=== PATIENT | female | born 1940 | race Caucasian/White ===

== ENCOUNTER → 2018-03-03 10:10 | Outpatient (CLI) | payer MEDICARE, OTHER, SELFPAY ==
--- NOTE | 2018-03-03 | DI.MG.S_ITS ---
BILATERAL DIGITAL SCREENING MAMMOGRAM 3D/2D WITH CAD: 03/03/2018 CLINICAL: Routine screening. Family history of breast cancer. Comparison is made to exams dated: 09/02/2017 mammogram, 03/02/2017 mammogram, and 02/16/2017 mammogram - [facility]. The tissue of both breasts is predominantly fatty. Current study was also evaluated with a Computer Aided Detection (CAD) system. No significant masses, calcifications, or other findings are seen in either breast. There has been no significant interval change. IMPRESSION: NEGATIVE There is no mammographic evidence of malignancy. A 1 year screening mammogram is recommended. This exam was interpreted at Station ID: [id number]. NOTE: For mammograms, a report in lay terms will be sent to the patient. Approximately 15% of breast malignancies will not be visualized mammographically. In the management of a palpable breast mass, a negative mammogram must not discourage biopsy of a clinically suspicious lesion. Electronically Signed By: Ramana gaona/prince:03/03/2018 11:45:35 letter sent: Normal Exam ACR BI-RADS Category 1: Negative [id number]
== END ==
PROVIDERS: Family Provider Family Medicine; PCP Family Medicine; Visit Provider Family Medicine
DX: Z12.31 Encounter for screening mammogram for malignant neoplasm of breast (principal); Z80.3 Family history of malignant neoplasm of breast
CPT/HCPCS: 77063; 77067

== ENCOUNTER → 2018-04-13 10:50 | Outpatient (CLI) | payer MEDICARE, OTHER, SELFPAY ==
[2018-04-13 11:47] LABS: Add Manual Diff / Slide Review NO; Basophils Percent Auto 0.9 % (0-2); Eosinophils Percent Auto 3.8 % (2-4); Hematocrit 43.3 % (36-46); Hemoglobin 14.9 g/dL (12.0-16.0); Lymphocytes Percent Auto 47.9 % (25-40); Mean Corpuscular HGB Conc 34.4 % (30-36); Mean Corpuscular Hemoglobin 31.5 PG (26-34); Mean Corpuscular Volume 91.4 fL (80-100); Monocytes Percent Auto 7.2 % (3-14); Neutrophils Absolute Auto 2800 /uL (3000-5900); Neutrophils Percent Auto 40.2 % (50-75); Platelet Count 190 X10^3/uL (150-400); Red Blood Cell Count 4.73 X10^6/uL (4.0-5.2); Red Cell Distribution Width 12.9 % (11.6-14.8); White Blood Cell Count 6.9 X10^3/uL (4.5-11.0)
[2018-04-13 12:45] LABS: Alanine Aminotransferase 54 IU/L (9-52); Albumin 4.2 g/dL (3.5-5.0); Albumin Globulin Ratio 1.4 (1.0-2.8); Alkaline Phosphatase 82 U/L (38-126); Aspartate Aminotransferase 52 IU/L (14-36); BUN Creatinine Ratio 21.7 (6-22); Bilirubin Total 0.6 mg/dL (0.2-1.3); Blood Urea Nitrogen 13 mg/dL (7-17); Calcium 9.8 mg/dL (8.4-10.2); Carbon Dioxide 28 mmol/L (22-32); Chloride 103 mmol/L (98-107); Estimated Glomerular Filt Rate > 60.0 mL/min (>60); Glucose 101 mg/dL (80-110); HEMOLYSIS < 15 (0-50); Potassium 4.2 mmol/L (3.4-5.1); Sodium 139 mmol/L (137-145); Total Protein 7.2 g/dL (6.3-8.2)
[2018-04-13 13:02] LABS: Free T4, Direct Thyroxine 1.28 ng/dL (0.78-2.19)
[2018-04-13 13:17] LABS: Thyroid Stimulating Hormone 4.59 uIU/mL (0.47-4.68)
[2018-04-13 15:19] LABS: Vitamin D 25 Hydroxy (D3) 24.1 ng/mL (30.0-100.0)
== END ==
PROVIDERS: Visit Provider Family Medicine
DX: E83.52 Hypercalcemia (principal); E03.9 Hypothyroidism, unspecified; M81.0 Age-related osteoporosis without current pathological fracture; E21.3 Hyperparathyroidism, unspecified
CPT/HCPCS: 36415; 80053; 82306; 84439; 84443; 85025

== ENCOUNTER → 2018-05-31 14:13 | Outpatient (CLI) | payer MEDICARE, OTHER, SELFPAY ==
--- NOTE | 2018-05-31 14:15 | DI.RAD.S_ITS ---
PROCEDURE: FL BARIUM SWALLOW W SPEECH INDICATIONS: swallowing issues TECHNIQUE: Examination was conducted in conjunction with speech pathology per standard protocol. In the lateral projection, filming was performed of the patient swallowing. AP projection filming may also be performed with patient swallowing. COMPARISON: [facility], , MM SCREENING MAMMO BI, 03/03/2018, 10:32. FINDINGS: Function: The oral preparatory phase appears normal, with proper containment. The subsequent oral propulsive phase, pharyngeal phase, and esophageal phase of swallowing also appear normal with all proffered substances. Trace laryngotracheal penetration with pur?e consistency. No aspiration. No pathologic vallecular pooling. Morphology: No cricopharyngeal bar is identified. No cervical esophageal webs. No Zenker's diverticulum. No strictures. IMPRESSION: Trace laryngeal penetration. Please see separate speech pathologist's report. Dictated by: Claudy Claire M.D. on 05/31/2018 at 15:52 Approved by: Claudy Claire M.D. on 05/31/2018 at 15:53
--- NOTE | 2018-06-01 17:13 | ST.SWALLOW ---
Care Team Visit Care Team Role Provider Type Michelle Ghotra DO Attending Provider Physician Primary Care Provider Specialty: Family Practice Address: [address] [place] [address], [id number] Email: [email or web address] Modified Barium Swallow Study METER TECHNICIAN Modified Barium Swallow Study Start: 06/01/18 16:35 Freq: Status: Active Protocol: Document 06/01/18 16:37 RANCHO (Rec: 06/01/18 17:13 RANCHO [id number]) Modified Barium Swallow Study Total Time Visit Start Time 14:30 Visit Stop Time 15:00 Total Visit Minutes [address] Michelle Glass Reason for Referral Dysphagia Setting Setting Outpatient Care Patient Information Identification Type Name Other Patient History This 78-yr-old female was seen by this METER TECHNICIAN last month during community swallow screenings offered at the [facility] outpatient rehab clinic, and MBS was recommended to evaluate her swallow function and safety. 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 She also reported having had radioactive iodine treatment for a thyroid growth in 1983, and felt that this was the onset of her swallow difficulties. She has had dysphagia therapy at as recently as 2006. At that time , she was recommended to drink liquids with a straw, which she continues and states it is easier and results in less coughing than drinking from a cup. The pt is skilled in consuming small bites/sips at a slow rate but finds that liquids go to the sides of [ her] mouth and result in choking especially when she is tired. Consumption of dry, crumbly foods also often results in coughing, and coughing also increases generally when she is distracted while eating or drinking. Subjective Observations The pt arrived on time and ambulated herself via motorized wheelchair. She remained in her own wheelchair throughout the study. She was able to provide case history and follow all instructions. Patient Positioning Position View Lateral Imaging Lateral View Textures Administered Trials Presented Thin Liquid via Spoon Thin Liquid via Cup Thin Liquid via Straw [place] [employer] Liquid via Spoon [employer] Liquid via Cup [employer] Liquid via Straw [place] Liquid via Spoon Dysphagia Blenderized Textures Dysphagia Advanced Textures Regular Textures Oral Phase Source: MBSIMP (TM) (C) Bolus Specific Scoring Grid Lip Closure No Impairment (WNL) Tongue Control During Bolus Hold Minimal Impairment Bolus Prep/Mastication Mild Impairment Bolus Transport/Lingual Motion Mild Impairment A/P Lingual Propulsion Delay No Oral Residue Mild Impairment Residue Clearing WFL Nasal Regurgitation No: Gag reflex elicited x2 w/ pudding and dysphagia advanced texture Additional Oral Phase Observations Mild, rapid lingual rocking observed intermittently upon initiation of a/p propulsion with liquids, accompanied by escape of bolus to anterior floor of mouth and followed by complete and timely posterior propulsion. This may be natural dipping swallow technique, which is not considered abnormal bolus control (Dawna, 1989). Greater effort of solid bolus control observed with repetitive escape to floor of mouth anteriorly and into lateral sulci. No residue at floor of mouth or sulci observed post- swallow. Pharyngeal Phase Source: MBSIMP (TM) (C) Bolus Specific Scoring Grid Delayed Initiation of Pharyngeal Swallow Yes: With solids only Number of Seconds Delayed (seconds) Up to 3 sec Soft Palate Elevation No Impairment (WNL) Tongue Base Strength/Range of Motion Mild Impairment Residue Along the Tongue Base Yes: Trace to mild, clears w/ subsequent swallow Clearance of Residue Along Tongue Base WFL Laryngeal Elevation Minimal Impairment Anterior Hyoid Movement WFL Vallecular Residue Yes: Minimal, clears with subsequent swallow Clearance of Vallecular Residue No Impairment (WNL) Laryngeal Vestibular Closure Minimal Impairment Pharyngeal Stripping Wave Minimal Impairment Posterior Pharyngeal Wall Residue No Upper Esophageal Sphincter Opening No Impairment (WNL) Residue in the Pyriform Sinuses No Esophageal Clearance Upright Position No Impairment (WNL) Pharyngoesophageal Backflow Observed No Additional Pharyngeal Phase Observations Trace flash penetration ([place] Scale 2) x1 during swallow of large consecutive sips of thin liquid via straw following swallow of solids. No aspiration was observed. The pt exhibited gag reflex and piecemeal swallow of trials of puddings and diced fruit, stating that the bolus size presented to her was larger than what she usually consumes. She consumed a small bite of cookie without gag reflex and swallowed in piecemeal sequence. A/P View Clinical Impressions Dysphagia Type Mild oropharyngeal dysphagia Findings secondary to mildly reduced strength, coordination, and/or ROM of swallow musculature, particularly lingual and laryngeal muscles. Impairments impact bolus formation and control in oral prep and swallow phases and airway protection in pharyngeal swallow phase. Rehabilitation Potential Excellent Patient Appropriate for Therapy Yes Recommendations Diet Liquids Order Thin Diet Order Regular Medication Recommendation As Tolerated Aspiration Precautions Recommended Precautions Upright at 90 Degrees Small Bites/Sips Treatment Plan Therapy Recommendations Outpatient Speech Therapy Oral Motor Exercises Lingual Exercises Base of Tongue Exercises Compensatory Strategies Recommendations Sitting Upright (90 deg) Small Bites and Sips Additional Compensatory Strategies Minimize distractions while Recommended eating/drinking. Short Term Goals Pt will complete exercises to increase strength, coordination, and ROM of swallow musculature to reduce effort and improve safety with oral intake. The pt will follow safe swallow strategies to improve swallow safety and reduce risk of aspiration. Resident Manager Goals The pt will tolerate regular diet and thin liquids without s/sx of aspiration. The pt will report increased confidence with oral intake, as measured by self-evaluation questionnaire (e.g., EAT-10).
--- NOTE | 2018-06-01 17:22 | ST.SWALLOW ---
Care Team Visit Care Team Role Provider Type Michelle Ghotra DO Attending Provider Physician Primary Care Provider Specialty: Family Practice Address: [address] [place] [address], [id number] Email: [email or web address] Modified Barium Swallow Study RN CARDIOLOGY Modified Barium Swallow Study Start: 06/01/18 16:35 Freq: Status: Active Protocol: Document 05/31/18 16:37 RANCHO (Rec: 06/01/18 17:13 RANCHO [id number]) Modified Barium Swallow Study Total Time Visit Start Time 14:30 Visit Stop Time 15:00 Total Visit Minutes [address] Michelle Glass Reason for Referral Dysphagia Setting Setting Outpatient Care Patient Information Identification Type Name Other Patient History This 78-yr-old female was seen by this RN CARDIOLOGY last month during community swallow screenings offered at the [facility] outpatient rehab clinic, and MBS was recommended to evaluate her swallow function and safety. 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 She also reported having had radioactive iodine treatment for a thyroid growth in 1983, and felt that this was the onset of her swallow difficulties. She has had dysphagia therapy at as recently as 2006. At that time , she was recommended to drink liquids with a straw, which she continues and states it is easier and results in less coughing than drinking from a cup. The pt is skilled in consuming small bites/sips at a slow rate but finds that liquids go to the sides of [ her] mouth and result in choking especially when she is tired. Consumption of dry, crumbly foods also often results in coughing, and coughing also increases generally when she is distracted while eating or drinking. Subjective Observations The pt arrived on time and ambulated herself via motorized wheelchair. She remained in her own wheelchair throughout the study. She was able to provide case history and follow all instructions. Patient Positioning Position View Lateral Imaging Lateral View Textures Administered Trials Presented Thin Liquid via Spoon Thin Liquid via Cup Thin Liquid via Straw [place] Liquid via Spoon [place] Liquid via Cup [place] Liquid via Straw [place] Liquid via Spoon Dysphagia Blenderized Textures Dysphagia Advanced Textures Regular Textures Oral Phase Source: MBSIMP (TM) (C) Bolus Specific Scoring Grid Lip Closure No Impairment (WNL) Tongue Control During Bolus Hold Minimal Impairment Bolus Prep/Mastication Mild Impairment Bolus Transport/Lingual Motion Mild Impairment A/P Lingual Propulsion Delay No Oral Residue Mild Impairment Residue Clearing WFL Nasal Regurgitation No: Gag reflex elicited x2 w/ pudding and dysphagia advanced texture Additional Oral Phase Observations Mild, rapid lingual rocking observed intermittently upon initiation of a/p propulsion with liquids, accompanied by escape of bolus to anterior floor of mouth and followed by complete and timely posterior propulsion. This may be natural dipping swallow technique, which is not considered abnormal bolus control (Dawna, 1989). Greater effort of solid bolus control observed with repetitive escape to floor of mouth anteriorly and into lateral sulci. No residue at floor of mouth or sulci observed post- swallow. Pharyngeal Phase Source: MBSIMP (TM) (C) Bolus Specific Scoring Grid Delayed Initiation of Pharyngeal Swallow Yes: With solids only Number of Seconds Delayed (seconds) Up to 3 sec Soft Palate Elevation No Impairment (WNL) Tongue Base Strength/Range of Motion Mild Impairment Residue Along the Tongue Base Yes: Trace to mild, clears w/ subsequent swallow Clearance of Residue Along Tongue Base WFL Laryngeal Elevation Minimal Impairment Anterior Hyoid Movement WFL Vallecular Residue Yes: Minimal, clears with subsequent swallow Clearance of Vallecular Residue No Impairment (WNL) Laryngeal Vestibular Closure Minimal Impairment Pharyngeal Stripping Wave Minimal Impairment Posterior Pharyngeal Wall Residue No Upper Esophageal Sphincter Opening No Impairment (WNL) Residue in the Pyriform Sinuses No Esophageal Clearance Upright Position No Impairment (WNL) Pharyngoesophageal Backflow Observed No Additional Pharyngeal Phase Observations Trace flash penetration ([place] Scale 2) x1 observed during swallow of large consecutive sips of thin liquid via straw following swallow of solids. No aspiration was observed. The pt exhibited gag reflex and piecemeal swallow of trials of puddings and diced fruit, stating that the bolus size presented to her was larger than what she usually consumes. She consumed a small bite of cookie without gag reflex and swallowed in piecemeal sequence. A/P View Clinical Impressions Dysphagia Type Mild oropharyngeal dysphagia Findings secondary to mildly reduced strength, coordination, and/or ROM of swallow musculature, particularly lingual and laryngeal muscles. Impairments impact bolus formation and control in oral prep and swallow phases and airway protection in pharyngeal swallow phase. Rehabilitation Potential Excellent Patient Appropriate for Therapy Yes Recommendations Diet Liquids Order Thin Diet Order Regular Medication Recommendation As Tolerated Aspiration Precautions Recommended Precautions Upright at 90 Degrees Small Bites/Sips Treatment Plan Therapy Recommendations Outpatient Speech Therapy Oral Motor Exercises Lingual Exercises Base of Tongue Exercises Compensatory Strategies Recommendations Sitting Upright (90 deg) Small Bites and Sips Additional Compensatory Strategies Minimize distractions while Recommended eating/drinking. Short Term Goals Pt will complete exercises to increase strength, coordination, and ROM of swallow musculature to reduce effort and improve safety with oral intake. The pt will follow safe swallow strategies to improve swallow safety and reduce risk of aspiration. Watch Repairer Apprentice Goals The pt will tolerate regular diet and thin liquids without s/sx of aspiration. The pt will report increased confidence with oral intake, as measured by self-evaluation questionnaire (e.g., EAT-10).
== END ==
PROVIDERS: PCP Family Medicine; Visit Provider Family Medicine
DX: R13.10 Dysphagia, unspecified (principal)
CPT/HCPCS: 74230; 92611

== ENCOUNTER → 2018-06-10 08:43 | Outpatient (CLI) | payer MEDICARE, OTHER, SELFPAY ==
[2018-06-10 10:17] LABS: Vitamin D 25 Hydroxy (D3) 50.5 ng/mL (30.0-100.0)
[2018-06-10 10:32] LABS: TSH w/ Reflex to FT4 1.47 uIU/mL (0.47-4.68)
[2018-06-14 15:06] LABS: Parathyroid Hormone Int 114 pg/mL (14-64)
== END ==
PROVIDERS: PCP Family Medicine; Visit Provider Family Medicine
DX: Z12.11 Encounter for screening for malignant neoplasm of colon (principal); Z12.12 Encounter for screening for malignant neoplasm of rectum; E03.9 Hypothyroidism, unspecified; E21.3 Hyperparathyroidism, unspecified; M81.0 Age-related osteoporosis without current pathological fracture; I10 Essential (primary) hypertension
CPT/HCPCS: 36415; 82306; 83970; 84443

== ENCOUNTER → 2018-06-16 09:37 | Outpatient (CLI) | payer MEDICARE, OTHER, SELFPAY ==
[2018-06-18 15:51] LABS: Fecal Immunochemical Test NOT DETECTED
== END ==
PROVIDERS: PCP Family Medicine; Visit Provider Family Medicine
DX: Z12.11 Encounter for screening for malignant neoplasm of colon (principal); Z12.12 Encounter for screening for malignant neoplasm of rectum
CPT/HCPCS: 82274

== ENCOUNTER 2018-07-06 08:30 | Outpatient (RCR) | payer MEDICARE, OTHER, SELFPAY | END 2018-09-21 15:00 | LOC: SP 08:30 | PROVIDERS: PCP Family Medicine; Visit Provider Family Medicine | DX: R13.10 Dysphagia, unspecified (principal) | CPT/HCPCS: 92526; 92610 ==

== ENCOUNTER → 2018-12-07 12:59 | Outpatient (CLI) | payer MEDICARE, OTHER, SELFPAY | PROVIDERS: PCP Family Medicine; Visit Provider Family Medicine | DX: M81.0 Age-related osteoporosis without current pathological fracture (principal); Z78.0 Asymptomatic menopausal state; E07.9 Disorder of thyroid, unspecified; E83.52 Hypercalcemia; Z82.62 Family history of osteoporosis; Z87.891 Personal history of nicotine dependence | CPT/HCPCS: 77080 ==

== ENCOUNTER → 2019-03-07 09:35 | Outpatient (CLI) | payer MEDICARE, OTHER, SELFPAY ==
--- NOTE | 2019-03-07 | DI.MG.S_ITS ---
BILATERAL DIGITAL SCREENING MAMMOGRAM 3D/2D WITH CAD: 03/07/2019 CLINICAL: Routine screening. Family history of breast cancer. Comparison is made to exams dated: 03/03/2018 mammogram, 09/02/2017 mammogram, 03/02/2017 mammogram, 02/16/2017 mammogram, 11/01/2015 mammogram, and 03/02/2017 [facility]. There are scattered fibroglandular elements in both breasts. Current study was also evaluated with a Computer Aided Detection (CAD) system. There are mole markers on both breasts. No significant masses, calcifications, or other findings are seen in either breast. There has been no significant interval change. IMPRESSION: NEGATIVE There is no mammographic evidence of malignancy. A 1 year screening mammogram is recommended. This exam was interpreted at Station ID: [id number]. NOTE: For mammograms, a report in lay terms will be sent to the patient. Approximately 15% of breast malignancies will not be visualized mammographically. In the management of a palpable breast mass, a negative mammogram must not discourage biopsy of a clinically suspicious lesion. Electronically Signed By: Everett quintanilla/prince:03/07/2019 19:43:14 letter sent: Normal Exam ACR BI-RADS Category 1: Negative [id number]
== END ==
PROVIDERS: PCP Family Medicine; Visit Provider Family Medicine
DX: Z12.31 Encounter for screening mammogram for malignant neoplasm of breast (principal); Z80.3 Family history of malignant neoplasm of breast
CPT/HCPCS: 77063; 77067

== ENCOUNTER → 2019-05-01 10:20 | Outpatient (CLI) | payer MEDICARE, OTHER, SELFPAY ==
--- NOTE | 2019-05-01 10:22 | DI.RAD.S_ITS ---
PROCEDURE: XR FOOT LT MIN 3V INDICATIONS: left 1st toe pain, dropped frozen chicken on foot TECHNIQUE: 3 views of the foot were acquired. COMPARISON: [facility], , FOOT 3V RIGHT, 08/16/2015, 9:38. FINDINGS: Bones: There is diffuse osteopenia. Osteoarthritic changes are noted throughout left foot joints more prominent involving first TMT joint and first MTP joint. No gross acute fractures or dislocations. Tiny plantar calcaneal enthesophyte is seen. No suspicious bony lesions. Soft tissues: No tibiotalar joint effusion. Achilles tendon appears normal. IMPRESSION: Osteoarthritic changes throughout left foot. No gross acute left foot fracture or dislocation. Osteopenia. Dictated by: Andrew Garcia M.D. on 05/01/2019 at 10:35 Approved by: Andrew Garcia M.D. on 05/01/2019 at 10:36
== END ==
PROVIDERS: PCP Family Medicine; Visit Provider Physician Assistant
DX: M85.80 Other specified disorders of bone density and structure, unspecified site (principal); M79.675 Pain in left toe(s)
CPT/HCPCS: 73630

== ENCOUNTER 2019-05-12 15:15 | Outpatient (RCR) | payer MEDICARE, OTHER, SELFPAY ==
--- NOTE | 2019-02-14 16:47 | PT.OIE ---
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) Past Medical History (Last Updated 06/16/18 @ 10:34 by Michelle Ghotra DO) Acquired hypothyroidism (Chronic) Abnormal liver function tests (07/04/14) Hypercalcemia (07/04/14) Hyperlipidemia (07/04/14) Hyperparathyroidism (10/03/14) Osteoporosis (04/05/15) Parathyroid adenoma (05/07/17) Hyperparathyroidism, primary (Acute) Abnormal LFTs (Chronic) Atrial fibrillation (Chronic ~2012) Cataract (Chronic ~2013) GERD (gastroesophageal reflux disease) (Chronic ~1978) Hypercalcemia (Chronic ~2013) Hyperthyroidism (Chronic ~1981) Hypothyroidism (Chronic) Osteoarthritis (Chronic ~1974) Osteoporosis (Chronic ~2008) Paraplegia (Chronic) Polio (Chronic ~1951) Post-polio syndrome (Chronic) Scoliosis (Chronic ~1952) Shoulder pain (Chronic ~2013) Sleep apnea (Chronic ~2000) Urinary incontinence (Chronic ~2008) Vision abnormalities (Chronic) Chickenpox (Resolved ~1947) Foot fracture, right (Resolved ~2014) Fractures (Resolved) Measles (Resolved) Mumps (Resolved ~1970) Past Surgical History (Last Updated 04/20/18 @ 09:42 by Sammi Cuellar) History of lumbar sympathectomy (Resolved) Parathyroid adenoma (Resolved ~2016) Anesthesia (Inactive) History of tonsillectomy (~1951) Status post hammer toe correction (~1981) Provider Visit Care Team Role Provider Type Michelle Ghotra DO Attending Provider Physician Primary Care Provider Specialty: Family Practice Address: [address] [place] [address], [facility] Email: [email or web address] Physical Therapy Initial Evaluation PT-OP-A Visit Information Start: 02/14/19 15:09 Freq: Status: Active Protocol: Document 02/14/19 09:45 (Rec: 02/14/19 15:32 [email or web address]) Out-Patient Physical Therapy Visit Information Visit Information Visit Type Initial Evaluation Visit Start Time 09:45 Visit Stop Time 10:30 Total Visit Minutes 45 Visit Number 1 Number of REFRIGERATION ENGINEERING TEACHER Visits 0 Evaluation Information Evaluation Date 02/14/19 Precautions Precautions Post polio syndrome *minimal to moderate intensity for strengthening *avoid creating excessive soreness and fatigue high fall risks PT-OP-B Current Condition Start: 02/14/19 15:09 Freq: Status: Active Protocol: Document 02/14/19 09:45 (Rec: 02/14/19 15:32 HH [email or web address]) Current Condition History of Current Condition Onset Date 5 years ago Current Complaints Post polio syndrome, increased LE weakness, decreased activity tolerance History of Current Condition Pt is a 78yo female with post polio syndrome since 5 years ago. She presents to clinic with primary c/o increased LE weakness and decreased L hip mobility recently limited by pain. She also c/o she has difficult time to stretch her hip with theraband/ belt at home especially hip abd and extension in bed which causes her to fall easily. Pt also had an accident 4 years ago that a shelf fell on her L side which dislocated her L hip and broke her lumbar spine . Pt is power w/c bound since then but she does have a L hinged AFO and R hip orthotics to improve gait stability with crutches. she states she is able to stand around 15-20 mins with/without crutches, transfers between surface and amb with crutches for 0.5-1 hour 5 times a week independently at home. She has never amb out of her room due to high fall risks. Pt has fallen multiple times since 4 years ago but did not ahve any significant injuries. Prior Treatments and Tests Received outpatient PT at for UE strengthening in 2018 Treatment Goals Patient/Caregiver Goals 1. To learn and perform self stretches for B hip safely 2. To strengthen her back to tolerate longer standing time and amb distance 3. to be able to amb everyday with crutches for an hour Prior Functional Status Baseline Function- ADL's Modified Independent Baseline Function- Mobility Modified Independent Baseline Function- Gait with crutches (able to walk everyday) Baseline Function- Other Able to stand >1 hour able to amb > 1 hour with crutches able to amb daily with crutches Current Functional Impairments (Reported) Functional Limitations- ADL's mod Independent Functional Limitations- Mobility/Gait unable to amb more than 1 hour with crutches due to fatigue and poor balance Functional Limitations- Other Unable to perform self stretch to increase hip mobility PT-OP-C Subjective Start: 02/14/19 15:09 Freq: Status: Active Protocol: Document 02/14/19 09:45 HH (Rec: 02/14/19 15:32 [email or web address]) OP-PT Subjective Patient Comments Patient Comments I have a hard time stretching my hip. OP-PT Pain Assessment Location Bilateral Hip Intensity 5 Scale Used Numeric (1 - 10) Description Aching Chronic Dull Pain Aggravating Factors Activity Exercise Standing Sitting Walking Pain Alleviating Factors Inactivity Lying Supine Lower Back Intensity 4 Scale Used Numeric (1 - 10) Description Aching Chronic Dull Pain Aggravating Factors Activity Standing Walking Bending Lifting Pain Alleviating Factors Inactivity Lying Supine Sitting PT-OP-G Mobility & Gait Start: 02/14/19 15:09 Freq: Status: Active Protocol: Document 02/14/19 09:45 HH (Rec: 02/14/19 16:44 [email or web address]) OP Mobility Evaluation Transfers Sit to Stand Primarily WB on L LE Bed to Chair Transfers requires UE support to push off PT-OP-H Neuro Start: 02/14/19 15:09 Freq: Status: Active Protocol: Document 02/14/19 09:45 HH (Rec: 02/14/19 16:44 [email or web address]) Muscle Tone Tone Assessment Right Lower Extremity Flexor Tone Description Severe Hypotonicity Extensor Tone Description Severe Hypotonicity PT-OP-J Posture/Palpation/Skin Start: 02/14/19 15:09 Freq: Status: Active Protocol: Document 02/14/19 09:45 HH (Rec: 02/14/19 16:44 [email or web address]) Posture Evaluation Position Standing Evaluation View Anterior Weight Distribution Weight Shifted Left Decreased Wt.Bear on (R) Knee Posture (R) Genu Recurvatum Ankle/Foot Posture (R) Plantarflexed PT-OP-K Range of Motion Start: 02/14/19 15:09 Freq: Status: Active Protocol: Document 02/14/19 09:45 HH (Rec: 02/14/19 16:44 [email or web address]) Hip Goniometric Range of Motion Hip Measured in Degrees Left Passive Hip ROM WFL No Testing Position Supine Flexion w/Knee Flexed 100 Extension 0 Abduction 10 Knee Goniometric Range of Motion Knee Measured in Degrees Left Knee ROM WFL Yes PT-OP-L Special Tests Start: 02/14/19 15:09 Freq: Status: Active Protocol: Document 02/14/19 09:45 HH (Rec: 02/14/19 16:44 [email or web address]) Special Tests Hip Special Tests FADDIR Test Results +VE Comments deep joint pain at anterior and posterior hip pain Scour Test Test Results +ve Comments deep joint pain at anterior and posterior hip pain LUIS FERNANDO Test Results +ve Comments deep and stretching pain at anterior and posterior hip pain PT-OP-M Strength Start: 02/14/19 15:09 Freq: Status: Active Protocol: Document 02/14/19 09:45 (Rec: 02/14/19 16:44 [email or web address]) Hip Strength Hip Manual Muscle Testing Right Flexion (L2) 1 Trace Extension (S1) 1 Trace Abduction 1 Trace Adduction 1 Trace Left Flexion (L2) 4+ Good+ Extension (S1) 4+ Good+ Abduction 3+ Fair+ Adduction 4+ Good+ Knee Strength Knee Manual Muscle Testing Right Flexion (S2) 0 Zero Extension (L3) 0 Zero Left Flexion (S2) 5 Normal Extension (L3) 5 Normal Ankle/Foot Strength Ankle and Foot Manual Muscle Testing Right Dorsiflexion (L4) 0 Zero Plantarflexion (S1) 0 Zero Inversion 0 Zero Eversion (S1) 0 Zero Left Dorsiflexion (L4) 2- Poor- Plantarflexion (S1) 2- Poor- Inversion 2- Poor- Eversion (S1) 2- Poor- PT-OP-T Assessment and Plan Start: 02/14/19 15:09 Freq: Status: Active Protocol: Document 02/14/19 09:45 (Rec: 02/14/19 16:44 [email or web address]) Physical Therapy Assessment Rehab Potential Rehabilitation Potential Fair Evaluation Complexity Number of Personal Factors/Comorbidities 3 or More Number of Body Systems Impaired 4 or More Clinical Presentation at Evaluation Stable Impairments Impairments Activity Tolerance Balance Functional Activities Functional Mobility Gait Pain Posture ROM Sensation Soft Tissue Mobility Strength Tone Transfers Goals hip mobility Impairment insufficient L hip mobility Transfer Worker Goal (LTG) pt will increase her L hip mobility by 15 degrees of ROM grossly to improve functional mobility and gait efficiency LTG Duration 8 weeks Amb Impairment insufficient endurance and strength to amb > 1hour Transfer Worker Goal (LTG) Pt will be able to amb with crutches in the house daily for an hour to improve quality of life. Possily trials for out of house ambulation LTG Duration 8 weeks self stretch HEP Impairment unable to do self hip stretch at home Long-Term Goal (LTG) Pt will be able to perform self stretch at home independently and safely. LTG Duration 8 weeks Assessment Summary Assessment Pt is a high complexity due to her post polio syndrome since 5 years ago. Pt's current complaint with decreased B LE strength, activity tolerance and hip mobility which limits her functional mobility such as home ambulation, bathtub/ toilet/ car transfers. Upon assessment, pt presents limited L hip mobility limited primarily by pain. (FL= 100, ABD= 10, ABD =30 passively). Pt's R LE basically is flaccid with 1/5 MMT for hip musculature. Pt showed positive on L hip for special tests with Scmeg, FADDIR, LUIS FERNANDO which indicates possible degenerative joint changes. In conclusion, althought pt has post polio syndrome, Pt will still benefit from skilled therapy for energy conservation, gentle back and LE strengthening, balance training, gait training, HEP to improve overall mobility and endurance for functional activities. Physical Therapy Plan Frequency and Duration Frequency of Treatment 2x/Week Duration of Treatment 8 weeks Plan of Care Start Date 02/14/19 Plan of Care End Date 04/16/19 Therapeutic Interventions Therapeutic Interventions Aquatic Therapy Balance Training Gait Training Home Exercise Program Joint Mobilizations Manual Therapy Neuromuscular Re-education Orthotic/Prosthetic Management Patient/Caregiver Education Self-Care/Home Management Soft Tissue Mobilization Taping Therapeutic Activities Therapeutic Exercises Modalities Cold Pack/Ice Massage Electric Stimulation Hot Packs Infrared Therapy Ultrasound Next Visit Focus/Plan Next Note Type Treatment Note Next Visit Plan have pt fill out questionnaire 2 min/ 6 min walk test, 5 times STS, TUG if possible give HEP for hip stretch ( hip flexors and adductors.)
--- NOTE | 2019-02-14 16:47 | PT.OPPOC ---
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) Provider Visit Care Team Role Provider Type Michelle Ghotra DO Attending Provider Physician Primary Care Provider Specialty: Family Practice Address: [address] [place] [address], [id number] Email: [email or web address] Plan Of Care PT-OP-T Assessment and Plan Start: 02/14/19 15:09 Freq: Status: Active Protocol: Document 02/14/19 09:45 HH (Rec: 02/14/19 16:44 HH [email or web address]) Physical Therapy Assessment Rehab Potential Rehabilitation Potential Fair Evaluation Complexity Number of Personal Factors/Comorbidities 3 or More Number of Body Systems Impaired 4 or More Clinical Presentation at Evaluation Stable Impairments Impairments Activity Tolerance Balance Functional Activities Functional Mobility Gait Pain Posture ROM Sensation Soft Tissue Mobility Strength Tone Transfers Goals hip mobility Impairment insufficient L hip mobility [facility] Goal (LTG) pt will increase her L hip mobility by 15 degrees of ROM grossly to improve functional mobility and gait efficiency LTG Duration 8 weeks Amb Impairment insufficient endurance and strength to amb > 1hour Warp Hauler Goal (LTG) Pt will be able to amb with crutches in the house daily for an hour to improve quality of life. Possily trials for out of house ambulation LTG Duration 8 weeks self stretch HEP Impairment unable to do self hip stretch at home Warp Hauler Goal (LTG) Pt will be able to perform self stretch at home independently and safely. LTG Duration 8 weeks Assessment Summary Assessment Pt is a high complexity due to her post polio syndrome since 5 years ago. Pt's current complaint with decreased B LE strength, activity tolerance and hip mobility which limits her functional mobility such as home ambulation, bathtub/ toilet/ car transfers. Upon assessment, pt presents limited L hip mobility limited primarily by pain. (FL= 100, ABD= 10, ABD =30 passively). Pt's R LE basically is flaccid with 1/5 MMT for hip musculature. Pt showed positive on L hip for special tests with Scour, FADDIR, LUIS FERNANDO which indicates possible degenerative joint changes. In conclusion, althought pt has post polio syndrome, Pt will still benefit from skilled therapy for energy conservation, gentle back and LE strengthening, balance training, gait training, HEP to improve overall mobility and endurance for functional activities. Physical Therapy Plan Frequency and Duration Frequency of Treatment 2x/Week Duration of Treatment 8 weeks Plan of Care Start Date 02/14/19 Plan of Care End Date 04/16/19 Therapeutic Interventions Therapeutic Interventions Aquatic Therapy Balance Training Gait Training Home Exercise Program Joint Mobilizations Manual Therapy Neuromuscular Re-education Orthotic/Prosthetic Management Patient/Caregiver Education Self-Care/Home Management Soft Tissue Mobilization Taping Therapeutic Activities Therapeutic Exercises Modalities Cold Pack/Ice Massage Electric Stimulation Hot Packs Infrared Therapy Ultrasound Next Visit Focus/Plan Next Note Type Treatment Note Next Visit Plan have pt fill out questionnaire 2 min/ 6 min walk test, 5 times STS, TUG if possible give HEP for hip stretch ( hip flexors and adductors.) Plan of Care Dates Plan of Care Start Date 02/14/19 Plan of Care End Date 04/16/19 Please Sign and Return: I have reviewed this Plan of Care and certify that the skilled therapy services above are required to meet the patient?s needs. Physician Signature Date Printed Name and Credentials Clinical Instructor Signature Printed Name and Credentials
--- NOTE | 2019-02-16 12:05 | PT.OTN ---
Current Diagnoses Postpolio syndrome (02/16/19) Physical Therapy Treatment Note PT-OP-A Visit Information Start: 02/14/19 15:09 Freq: Status: Active Protocol: Document 02/16/19 12:05 RCC (Rec: 02/16/19 14:23 RCC [email or web address]) Out-Patient Physical Therapy Visit Information Visit Information Visit Type Treatment Note Visit Start Time 12:05 Visit Stop Time 12:45 Total Visit Minutes 40 Visit Number 2 Number of MECHANICAL PIPING DESIGNER Visits 0 Evaluation Information Evaluation Date 02/14/19 Precautions Precautions Post polio syndrome *minimal to moderate intensity for strengthening *avoid creating excessive soreness and fatigue high fall risks PT-OP-B Current Condition Start: 02/14/19 15:09 Freq: Status: Active Protocol: Document 02/14/19 09:45 HH (Rec: 02/14/19 15:32 HH [email or web address]) Current Condition History of Current Condition Onset Date 5 years ago Current Complaints Post polio syndrome, increased LE weakness, decreased activity tolerance History of Current Condition Pt is a 78yo female with post polio syndrome since 5 years ago. She presents to clinic with primary c/o increased LE weakness and decreased L hip mobility recently limited by pain. She also c/o she has difficult time to stretch her hip with theraband/ belt at home especially hip abd and extension in bed which causes her to fall easily. Pt also had an accident 4 years ago that a shelf fell on her L side which dislocated her L hip and broke her lumbar spine . Pt is power w/c bound since then but she does have a L hinged AFO and R hip orthotics to improve gait stability with crutches. she states she is able to stand around 15-20 mins with/without crutches, transfers between surface and amb with crutches for 0.5-1 hour 5 times a week independently at home. She has never amb out of her room due to high fall risks. Pt has fallen multiple times since 4 years ago but did not ahve any significant injuries. Prior Treatments and Tests Received outpatient PT at for UE strengthening in 2018 Treatment Goals Patient/Caregiver Goals 1. To learn and perform self stretches for B hip safely 2. To strengthen her back to tolerate longer standing time and amb distance 3. to be able to amb everyday with crutches for an hour Prior Functional Status Baseline Function- ADL's Modified Independent Baseline Function- Mobility Modified Independent Baseline Function- Gait with crutches (able to walk everyday) Baseline Function- Other Able to stand >1 hour able to amb > 1 hour with crutches able to amb daily with crutches Current Functional Impairments (Reported) Functional Limitations- ADL's mod Independent Functional Limitations- Mobility/Gait unable to amb more than 1 hour with crutches due to fatigue and poor balance Functional Limitations- Other Unable to perform self stretch to increase hip mobility PT-OP-C Subjective Start: 02/14/19 15:09 Freq: Status: Active Protocol: Document 02/16/19 12:05 RCC (Rec: 02/16/19 14:23 RCC [email or web address]) OP-PT Subjective Patient Comments Patient Comments Pt reports her RLE brace is getting fixed at [facility], states that she wishes to do her walking tests when she has them back. PT-OP-G Mobility & Gait Start: 02/14/19 15:09 Freq: Status: Active Protocol: Document 02/14/19 09:45 HH (Rec: 02/14/19 16:44 HH [email or web address]) OP Mobility Evaluation Transfers Sit to Stand Primarily WB on L LE Bed to Chair Transfers requires UE support to push off PT-OP-H Neuro Start: 02/14/19 15:09 Freq: Status: Active Protocol: Document 02/14/19 09:45 HH (Rec: 02/14/19 16:44 HH [email or web address]) Muscle Tone Tone Assessment Right Lower Extremity Flexor Tone Description Severe Hypotonicity Extensor Tone Description Severe Hypotonicity PT-OP-J Posture/Palpation/Skin Start: 02/14/19 15:09 Freq: Status: Active Protocol: Document 02/14/19 09:45 HH (Rec: 02/14/19 16:44 HH [email or web address]) Posture Evaluation Position Standing Evaluation View Anterior Weight Distribution Weight Shifted Left Decreased Wt.Bear on (R) Knee Posture (R) Genu Recurvatum Ankle/Foot Posture (R) Plantarflexed PT-OP-K Range of Motion Start: 02/14/19 15:09 Freq: Status: Active Protocol: Document 02/14/19 09:45 HH (Rec: 02/14/19 16:44 HH [email or web address]) Hip Goniometric Range of Motion Hip Measured in Degrees Left Passive Hip ROM WFL No Testing Position Supine Flexion w/Knee Flexed 100 Extension 0 Abduction 10 Knee Goniometric Range of Motion Knee Measured in Degrees Left Knee ROM WFL Yes PT-OP-L Special Tests Start: 02/14/19 15:09 Freq: Status: Active Protocol: Document 02/14/19 09:45 HH (Rec: 02/14/19 16:44 HH [email or web address]) Special Tests Hip Special Tests FADDIR Test Results +VE Comments deep joint pain at anterior and posterior hip pain Scour Test Test Results +ve Comments deep joint pain at anterior and posterior hip pain LUIS FERNANDO Test Results +ve Comments deep and stretching pain at anterior and posterior hip pain PT-OP-M Strength Start: 02/14/19 15:09 Freq: Status: Active Protocol: Document 02/14/19 09:45 (Rec: 02/14/19 16:44 [email or web address]) Hip Strength Hip Manual Muscle Testing Right Flexion (L2) 1 Trace Extension (S1) 1 Trace Abduction 1 Trace Adduction 1 Trace Left Flexion (L2) 4+ Good+ Extension (S1) 4+ Good+ Abduction 3+ Fair+ Adduction 4+ Good+ Knee Strength Knee Manual Muscle Testing Right Flexion (S2) 0 Zero Extension (L3) 0 Zero Left Flexion (S2) 5 Normal Extension (L3) 5 Normal Ankle/Foot Strength Ankle and Foot Manual Muscle Testing Right Dorsiflexion (L4) 0 Zero Plantarflexion (S1) 0 Zero Inversion 0 Zero Eversion (S1) 0 Zero Left Dorsiflexion (L4) 2- Poor- Plantarflexion (S1) 2- Poor- Inversion 2- Poor- Eversion (S1) 2- Poor- PT-OP-Q Treatments Start: 02/14/19 15:09 Freq: Status: Active Protocol: Document 02/16/19 12:05 [facility] (Rec: 02/16/19 14:23 RCC [email or web address]) Gym Equipment Therapeutic Ball B knee flex/extension Ball Size/Color 55 cm Body Position Supine Reps/Duration x20 Comments assistance with RLE Therapeutic Exercises Supine Exercises piriformis stretch Supine Exercise Name manual stretch L knee to opp shoulder Side left Reps/Minutes 3x1 min bridging Side bilateral Reps/Minutes x12 Comments assist with approximation RLE hip adduction isometric Side bilateral Resistance vs PT's hands Reps/Minutes x20 Comments assist with RLE control hip adductor stretch Supine Exercise Name manual stretch of L hip adductors Side left Reps/Minutes 3x1 min SKC Supine Exercise Name manual stretch SKC Side left Reps/Minutes 3x1 min Sidelying Exercises hip extension stretch Side left Reps/Minutes 3x1 min SL rotation stretch Sidelying Exercise Name LLE hanging off of bed, SL rotation stretch to the L Reps/Minutes 1x2 min clamshells Side left Reps/Minutes x10 Gait Training Gait Activity level gait in // bars Device Used // bars Level of Assistance CGA Surface level Distance/Duration 8 laps Treatment Focus weight shift, R knee control, core and pelvic stability PT-OP-T Assessment and Plan Start: 02/14/19 15:09 Freq: Status: Active Protocol: Document 02/16/19 12:05 [facility] (Rec: 02/16/19 14:23 [facility] [email or web address]) Physical Therapy Assessment Assessment Summary Assessment Pt requested to hold TUG or 2/ 6 MWT until she has her brace. Pt with noted less discomfort with L hip stretching today, but still with increased tone L hip adductors. She requires assistance with all activities with the RLE. Physical Therapy Plan Frequency and Duration Frequency of Treatment 2x/Week Duration of Treatment 8 weeks Plan of Care Start Date 02/14/19 Plan of Care End Date 04/16/19 Next Visit Focus/Plan Next Note Type Treatment Note Next Visit Plan TUG or 2 or 6 MWT if brace on RLE with B L[place]strand crutches; cont. L hip flexibility and ROM
--- NOTE | 2019-02-23 09:45 | PT.OTN ---
Current Diagnoses Postpolio syndrome (02/23/19) Physical Therapy Treatment Note PT-OP-A Visit Information Start: 02/14/19 15:09 Freq: Status: Active Protocol: Document 02/23/19 09:45 RCC (Rec: 02/23/19 12:51 RCC [email or web address]) Out-Patient Physical Therapy Visit Information Visit Information Visit Type Treatment Note Visit Start Time 09:45 Visit Stop Time 12:45 Total Visit Minutes 40 Visit Number 2 Number of HEALTHCARE ADMINISTRATIVE ASSISTANT Visits 0 Evaluation Information Evaluation Date 02/14/19 Precautions Precautions Post polio syndrome *minimal to moderate intensity for strengthening *avoid creating excessive soreness and fatigue high fall risks PT-OP-B Current Condition Start: 02/14/19 15:09 Freq: Status: Active Protocol: Document 02/14/19 09:45 HH (Rec: 02/14/19 15:32 HH [email or web address]) Current Condition History of Current Condition Onset Date 5 years ago Current Complaints Post polio syndrome, increased LE weakness, decreased activity tolerance History of Current Condition Pt is a 78yo female with post polio syndrome since 5 years ago. She presents to clinic with primary c/o increased LE weakness and decreased L hip mobility recently limited by pain. She also c/o she has difficult time to stretch her hip with theraband/ belt at home especially hip abd and extension in bed which causes her to fall easily. Pt also had an accident 4 years ago that a shelf fell on her L side which dislocated her L hip and broke her lumbar spine . Pt is power w/c bound since then but she does have a L hinged AFO and R hip orthotics to improve gait stability with crutches. she states she is able to stand around 15-20 mins with/without crutches, transfers between surface and amb with crutches for 0.5-1 hour 5 times a week independently at home. She has never amb out of her room due to high fall risks. Pt has fallen multiple times since 4 years ago but did not ahve any significant injuries. Prior Treatments and Tests Received outpatient PT at for UE strengthening in 2018 Treatment Goals Patient/Caregiver Goals 1. To learn and perform self stretches for B hip safely 2. To strengthen her back to tolerate longer standing time and amb distance 3. to be able to amb everyday with crutches for an hour Prior Functional Status Baseline Function- ADL's Modified Independent Baseline Function- Mobility Modified Independent Baseline Function- Gait with crutches (able to walk everyday) Baseline Function- Other Able to stand >1 hour able to amb > 1 hour with crutches able to amb daily with crutches Current Functional Impairments (Reported) Functional Limitations- ADL's mod Independent Functional Limitations- Mobility/Gait unable to amb more than 1 hour with crutches due to fatigue and poor balance Functional Limitations- Other Unable to perform self stretch to increase hip mobility PT-OP-C Subjective Start: 02/14/19 15:09 Freq: Status: Active Protocol: Document 02/23/19 09:45 RCC (Rec: 02/23/19 12:51 RCC [email or web address]) OP-PT Subjective Patient Comments Patient Comments Pt reports she fell on Wednesday when trying to wear her braces around the house. PT-OP-G Mobility & Gait Start: 02/14/19 15:09 Freq: Status: Active Protocol: Document 02/14/19 09:45 HH (Rec: 02/14/19 16:44 HH [email or web address]) OP Mobility Evaluation Transfers Sit to Stand Primarily WB on L LE Bed to Chair Transfers requires UE support to push off PT-OP-H Neuro Start: 02/14/19 15:09 Freq: Status: Active Protocol: Document 02/14/19 09:45 HH (Rec: 02/14/19 16:44 HH [email or web address]) Muscle Tone Tone Assessment Right Lower Extremity Flexor Tone Description Severe Hypotonicity Extensor Tone Description Severe Hypotonicity PT-OP-J Posture/Palpation/Skin Start: 02/14/19 15:09 Freq: Status: Active Protocol: Document 02/14/19 09:45 HH (Rec: 02/14/19 16:44 HH [email or web address]) Posture Evaluation Position Standing Evaluation View Anterior Weight Distribution Weight Shifted Left Decreased Wt.Bear on (R) Knee Posture (R) Genu Recurvatum Ankle/Foot Posture (R) Plantarflexed PT-OP-K Range of Motion Start: 02/14/19 15:09 Freq: Status: Active Protocol: Document 02/14/19 09:45 HH (Rec: 02/14/19 16:44 HH [email or web address]) Hip Goniometric Range of Motion Hip Measured in Degrees Left Passive Hip ROM WFL No Testing Position Supine Flexion w/Knee Flexed 100 Extension 0 Abduction 10 Knee Goniometric Range of Motion Knee Measured in Degrees Left Knee ROM WFL Yes PT-OP-L Special Tests Start: 02/14/19 15:09 Freq: Status: Active Protocol: Document 02/14/19 09:45 HH (Rec: 02/14/19 16:44 HH [email or web address]) Special Tests Hip Special Tests FADDIR Test Results +VE Comments deep joint pain at anterior and posterior hip pain Scour Test Test Results +ve Comments deep joint pain at anterior and posterior hip pain LUIS FERNANDO Test Results +ve Comments deep and stretching pain at anterior and posterior hip pain PT-OP-M Strength Start: 02/14/19 15:09 Freq: Status: Active Protocol: Document 02/14/19 09:45 HH (Rec: 02/14/19 16:44 HH [email or web address]) Hip Strength Hip Manual Muscle Testing Right Flexion (L2) 1 Trace Extension (S1) 1 Trace Abduction 1 Trace Adduction 1 Trace Left Flexion (L2) 4+ Good+ Extension (S1) 4+ Good+ Abduction 3+ Fair+ Adduction 4+ Good+ Knee Strength Knee Manual Muscle Testing Right Flexion (S2) 0 Zero Extension (L3) 0 Zero Left Flexion (S2) 5 Normal Extension (L3) 5 Normal Ankle/Foot Strength Ankle and Foot Manual Muscle Testing Right Dorsiflexion (L4) 0 Zero Plantarflexion (S1) 0 Zero Inversion 0 Zero Eversion (S1) 0 Zero Left Dorsiflexion (L4) 2- Poor- Plantarflexion (S1) 2- Poor- Inversion 2- Poor- Eversion (S1) 2- Poor- PT-OP-Q Treatments Start: 02/14/19 15:09 Freq: Status: Active Protocol: Document 02/23/19 09:45 RCC (Rec: 02/23/19 12:51 RCC [email or web address]) Therapeutic Exercises Supine Exercises piriformis stretch Supine Exercise Name manual stretch L knee to opp shoulder Side left Reps/Minutes 3x1 min bridging Side bilateral Reps/Minutes x12 Comments assist with approximation RLE hip adduction isometric Side bilateral Resistance vs PT's hands Reps/Minutes x20 Comments assist with RLE control hip adductor stretch Supine Exercise Name manual stretch of L hip adductors Side left Reps/Minutes 3x1 min SKC Supine Exercise Name manual stretch SKC Side left Reps/Minutes 3x1 min Sidelying Exercises hip extension stretch Side left Reps/Minutes 3x1 min clamshells Side left Reps/Minutes x10 Other Exercises STS without hands Reps/Minutes x3 Comments gait belt and Min A PT-OP-T Assessment and Plan Start: 02/14/19 15:09 Freq: Status: Active Protocol: Document 02/23/19 09:45 [facility] (Rec: 02/23/19 12:51 RCC [email or web address]) Physical Therapy Assessment Assessment Summary Assessment Pt requested to not perform 5x sit to stand testing, as she reports she has fallen with another PT in a different clinic during that test. Overall, pt requires Min A for sit to stand when not using UEs, with pelvic rotation to the L. Physical Therapy Plan Frequency and Duration Frequency of Treatment 2x/Week Duration of Treatment 8 weeks Plan of Care Start Date 02/14/19 Plan of Care End Date 04/16/19 Next Visit Focus/Plan Next Note Type Treatment Note Next Visit Plan cont LLE flexibility and core stability, pelvic stabilization.
--- NOTE | 2019-02-28 17:41 | PT.OTN ---
Current Diagnoses Postpolio syndrome (02/28/19) Physical Therapy Treatment Note PT-OP-A Visit Information Start: 02/14/19 15:09 Freq: Status: Active Protocol: Document 02/28/19 15:15 HH (Rec: 02/28/19 17:41 HH [email or web address]) Out-Patient Physical Therapy Visit Information Visit Information Visit Type Treatment Note Visit Start Time 15:15 Visit Stop Time 16:00 Total Visit Minutes 45 Visit Number 4 Number of LAW CLERK Visits 0 PT-OP-B Current Condition Start: 02/14/19 15:09 Freq: Status: Active Protocol: Document 02/14/19 09:45 HH (Rec: 02/14/19 15:32 HH [email or web address]) Current Condition History of Current Condition Onset Date 5 years ago Current Complaints Post polio syndrome, increased LE weakness, decreased activity tolerance History of Current Condition Pt is a 78yo female with post polio syndrome since 5 years ago. She presents to clinic with primary c/o increased LE weakness and decreased L hip mobility recently limited by pain. She also c/o she has difficult time to stretch her hip with theraband/ belt at home especially hip abd and extension in bed which causes her to fall easily. Pt also had an accident 4 years ago that a shelf fell on her L side which dislocated her L hip and broke her lumbar spine . Pt is power w/c bound since then but she does have a L hinged AFO and R hip orthotics to improve gait stability with crutches. she states she is able to stand around 15-20 mins with/without crutches, transfers between surface and amb with crutches for 0.5-1 hour 5 times a week independently at home. She has never amb out of her room due to high fall risks. Pt has fallen multiple times since 4 years ago but did not ahve any significant injuries. Prior Treatments and Tests Received outpatient PT at for UE strengthening in 2018 Treatment Goals Patient/Caregiver Goals 1. To learn and perform self stretches for B hip safely 2. To strengthen her back to tolerate longer standing time and amb distance 3. to be able to amb everyday with crutches for an hour Prior Functional Status Baseline Function- ADL's Modified Independent Baseline Function- Mobility Modified Independent Baseline Function- Gait with crutches (able to walk everyday) Baseline Function- Other Able to stand >1 hour able to amb > 1 hour with crutches able to amb daily with crutches Current Functional Impairments (Reported) Functional Limitations- ADL's mod Independent Functional Limitations- Mobility/Gait unable to amb more than 1 hour with crutches due to fatigue and poor balance Functional Limitations- Other Unable to perform self stretch to increase hip mobility PT-OP-C Subjective Start: 02/14/19 15:09 Freq: Status: Active Protocol: Document 02/28/19 15:15 HH (Rec: 02/28/19 17:41 HH [email or web address]) OP-PT Subjective Patient Comments Patient Comments I still feel sore from the fall. There are bruises on my L back and butt area. I just started to do my exercises again since today. PT-OP-G Mobility & Gait Start: 02/14/19 15:09 Freq: Status: Active Protocol: Document 02/14/19 09:45 HH (Rec: 02/14/19 16:44 HH [email or web address]) OP Mobility Evaluation Transfers Sit to Stand Primarily WB on L LE Bed to Chair Transfers requires UE support to push off PT-OP-H Neuro Start: 02/14/19 15:09 Freq: Status: Active Protocol: Document 02/14/19 09:45 HH (Rec: 02/14/19 16:44 HH [email or web address]) Muscle Tone Tone Assessment Right Lower Extremity Flexor Tone Description Severe Hypotonicity Extensor Tone Description Severe Hypotonicity PT-OP-J Posture/Palpation/Skin Start: 02/14/19 15:09 Freq: Status: Active Protocol: Document 02/14/19 09:45 HH (Rec: 02/14/19 16:44 HH [email or web address]) Posture Evaluation Position Standing Evaluation View Anterior Weight Distribution Weight Shifted Left Decreased Wt.Bear on (R) Knee Posture (R) Genu Recurvatum Ankle/Foot Posture (R) Plantarflexed PT-OP-K Range of Motion Start: 02/14/19 15:09 Freq: Status: Active Protocol: Document 02/14/19 09:45 HH (Rec: 02/14/19 16:44 HH [email or web address]) Hip Goniometric Range of Motion Hip Measured in Degrees Left Passive Hip ROM WFL No Testing Position Supine Flexion w/Knee Flexed 100 Extension 0 Abduction 10 Knee Goniometric Range of Motion Knee Measured in Degrees Left Knee ROM WFL Yes PT-OP-L Special Tests Start: 02/14/19 15:09 Freq: Status: Active Protocol: Document 02/14/19 09:45 (Rec: 02/14/19 16:44 [email or web address]) Special Tests Hip Special Tests FADDIR Test Results +VE Comments deep joint pain at anterior and posterior hip pain Scour Test Test Results +ve Comments deep joint pain at anterior and posterior hip pain LUIS FERNANDO Test Results +ve Comments deep and stretching pain at anterior and posterior hip pain PT-OP-M Strength Start: 02/14/19 15:09 Freq: Status: Active Protocol: Document 02/14/19 09:45 (Rec: 02/14/19 16:44 [email or web address]) Hip Strength Hip Manual Muscle Testing Right Flexion (L2) 1 Trace Extension (S1) 1 Trace Abduction 1 Trace Adduction 1 Trace Left Flexion (L2) 4+ Good+ Extension (S1) 4+ Good+ Abduction 3+ Fair+ Adduction 4+ Good+ Knee Strength Knee Manual Muscle Testing Right Flexion (S2) 0 Zero Extension (L3) 0 Zero Left Flexion (S2) 5 Normal Extension (L3) 5 Normal Ankle/Foot Strength Ankle and Foot Manual Muscle Testing Right Dorsiflexion (L4) 0 Zero Plantarflexion (S1) 0 Zero Inversion 0 Zero Eversion (S1) 0 Zero Left Dorsiflexion (L4) 2- Poor- Plantarflexion (S1) 2- Poor- Inversion 2- Poor- Eversion (S1) 2- Poor- PT-OP-Q Treatments Start: 02/14/19 15:09 Freq: Status: Active Protocol: Document 02/28/19 15:15 (Rec: 02/28/19 17:41 [email or web address]) Therapeutic Exercises Supine Exercises hip abduction iso Side bilateral Resistance vs PT's hands Reps/Minutes x 20 piriformis stretch Supine Exercise Name manual stretch L knee to opp shoulder Side left Reps/Minutes 3x1 min bridging Side bilateral Reps/Minutes x12 Comments assist with approximation RLE hip adduction isometric Side bilateral Resistance vs PT's hands Reps/Minutes x20 Comments assist with RLE control hip adductor stretch Supine Exercise Name manual stretch of L hip adductors Side left Reps/Minutes 3x1 min Sidelying Exercises hip extension stretch Side left Reps/Minutes 3x1 min clamshells Side left Reps/Minutes x6 x 4 Comments cues to prevent trunk ROT Sitting Exercises iso trunk extension Side bilateral Resistance PT's hands Reps/Minutes 10 s x 8 reps Comments resisted trunk extension Manual Therapy Treatment Joint Mobilizations L hip distraction Grade III Body Position Supine Reps/Duration 10 secs x 8 Comments inferior distraction PT-OP-T Assessment and Plan Start: 02/14/19 15:09 Freq: Status: Active Protocol: Document 02/28/19 15:15 (Rec: 02/28/19 17:41 [email or web address]) Physical Therapy Assessment Goals hip mobility Impairment insufficient L hip mobility Senior Care Goal (LTG) pt will increase her L hip mobility by 15 degrees of ROM grossly to improve functional mobility and gait efficiency LTG Duration 8 weeks Amb Impairment insufficient endurance and strength to amb > 1hour Senior Care Goal (LTG) Pt will be able to amb with crutches in the house daily for an hour to improve quality of life. Possily trials for out of house ambulation LTG Duration 8 weeks self stretch HEP Impairment unable to do self hip stretch at home Senior Care Goal (LTG) Pt will be able to perform self stretch at home independently and safely. LTG Duration 8 weeks Assessment Summary Assessment pt is still recovering from her fall. She roger session very well today with improve hip and decreased hip pain with L hip distraction. Improved L hip clamshell is noted as well . Pt requested for new HEP next visit to include UE and low back strengthening ex. Physical Therapy Plan Next Visit Focus/Plan Next Note Type Treatment Note Next Visit Plan provide new HEP for arms and back strengthening cont LLE flexibility and core stability, pelvic stabilization.
--- NOTE | 2019-03-10 16:22 | PT.OTN ---
Current Diagnoses Postpolio syndrome (03/10/19) Physical Therapy Treatment Note PT-OP-A Visit Information Start: 02/14/19 15:09 Freq: Status: Active Protocol: Document 03/10/19 15:15 (Rec: 03/10/19 16:22 HH [email or web address]) Out-Patient Physical Therapy Visit Information Visit Information Visit Type Treatment Note Visit Start Time 15:15 Visit Stop Time 16:00 Total Visit Minutes 45 Visit Number 5 Number of QC SCIENTIST Visits 0 PT-OP-B Current Condition Start: 02/14/19 15:09 Freq: Status: Active Protocol: Document 02/14/19 09:45 HH (Rec: 02/14/19 15:32 HH [email or web address]) Current Condition History of Current Condition Onset Date 5 years ago Current Complaints Post polio syndrome, increased LE weakness, decreased activity tolerance History of Current Condition Pt is a 78yo female with post polio syndrome since 5 years ago. She presents to clinic with primary c/o increased LE weakness and decreased L hip mobility recently limited by pain. She also c/o she has difficult time to stretch her hip with theraband/ belt at home especially hip abd and extension in bed which causes her to fall easily. Pt also had an accident 4 years ago that a shelf fell on her L side which dislocated her L hip and broke her lumbar spine . Pt is power w/c bound since then but she does have a L hinged AFO and R hip orthotics to improve gait stability with crutches. she states she is able to stand around 15-20 mins with/without crutches, transfers between surface and amb with crutches for 0.5-1 hour 5 times a week independently at home. She has never amb out of her room due to high fall risks. Pt has fallen multiple times since 4 years ago but did not ahve any significant injuries. Prior Treatments and Tests Received outpatient PT at for UE strengthening in 2018 Treatment Goals Patient/Caregiver Goals 1. To learn and perform self stretches for B hip safely 2. To strengthen her back to tolerate longer standing time and amb distance 3. to be able to amb everyday with crutches for an hour Prior Functional Status Baseline Function- ADL's Modified Independent Baseline Function- Mobility Modified Independent Baseline Function- Gait with crutches (able to walk everyday) Baseline Function- Other Able to stand >1 hour able to amb > 1 hour with crutches able to amb daily with crutches Current Functional Impairments (Reported) Functional Limitations- ADL's mod Independent Functional Limitations- Mobility/Gait unable to amb more than 1 hour with crutches due to fatigue and poor balance Functional Limitations- Other Unable to perform self stretch to increase hip mobility PT-OP-C Subjective Start: 02/14/19 15:09 Freq: Status: Active Protocol: Document 03/10/19 15:15 HH (Rec: 03/10/19 16:22 HH [email or web address]) OP-PT Subjective Patient Comments Patient Comments My L hip has been feeling good and less painful. I've been walking more too. PT-OP-G Mobility & Gait Start: 02/14/19 15:09 Freq: Status: Active Protocol: Document 02/14/19 09:45 HH (Rec: 02/14/19 16:44 HH [email or web address]) OP Mobility Evaluation Transfers Sit to Stand Primarily WB on L LE Bed to Chair Transfers requires UE support to push off PT-OP-H Neuro Start: 02/14/19 15:09 Freq: Status: Active Protocol: Document 02/14/19 09:45 HH (Rec: 02/14/19 16:44 HH [email or web address]) Muscle Tone Tone Assessment Right Lower Extremity Flexor Tone Description Severe Hypotonicity Extensor Tone Description Severe Hypotonicity PT-OP-J Posture/Palpation/Skin Start: 02/14/19 15:09 Freq: Status: Active Protocol: Document 02/14/19 09:45 HH (Rec: 02/14/19 16:44 [email or web address]) Posture Evaluation Position Standing Evaluation View Anterior Weight Distribution Weight Shifted Left Decreased Wt.Bear on (R) Knee Posture (R) Genu Recurvatum Ankle/Foot Posture (R) Plantarflexed PT-OP-K Range of Motion Start: 02/14/19 15:09 Freq: Status: Active Protocol: Document 02/14/19 09:45 HH (Rec: 02/14/19 16:44 HH [email or web address]) Hip Goniometric Range of Motion Hip Left Passive Hip ROM WFL No Testing Position Supine Flexion w/Knee Flexed 100 Extension 0 Abduction 10 Knee Goniometric Range of Motion Knee Left Knee ROM WFL Yes PT-OP-L Special Tests Start: 02/14/19 15:09 Freq: Status: Active Protocol: Document 02/14/19 09:45 (Rec: 02/14/19 16:44 [email or web address]) Special Tests Hip Special Tests FADDIR Test Results +VE Comments deep joint pain at anterior and posterior hip pain Scour Test Test Results +ve Comments deep joint pain at anterior and posterior hip pain LUIS FERNANDO Test Results +ve Comments deep and stretching pain at anterior and posterior hip pain PT-OP-M Strength Start: 02/14/19 15:09 Freq: Status: Active Protocol: Document 02/14/19 09:45 (Rec: 02/14/19 16:44 [email or web address]) Hip Strength Hip Manual Muscle Testing Right Flexion (L2) 1 Trace Extension (S1) 1 Trace Abduction 1 Trace Adduction 1 Trace Left Flexion (L2) 4+ Good+ Extension (S1) 4+ Good+ Abduction 3+ Fair+ Adduction 4+ Good+ Knee Strength Knee Manual Muscle Testing Right Flexion (S2) 0 Zero Extension (L3) 0 Zero Left Flexion (S2) 5 Normal Extension (L3) 5 Normal Ankle/Foot Strength Ankle and Foot Manual Muscle Testing Right Dorsiflexion (L4) 0 Zero Plantarflexion (S1) 0 Zero Inversion 0 Zero Eversion (S1) 0 Zero Left Dorsiflexion (L4) 2- Poor- Plantarflexion (S1) 2- Poor- Inversion 2- Poor- Eversion (S1) 2- Poor- PT-OP-Q Treatments Start: 02/14/19 15:09 Freq: Status: Active Protocol: Document 03/10/19 15:15 (Rec: 03/10/19 16:22 [email or web address]) Therapeutic Exercises Supine Exercises hip abduction iso Side bilateral Resistance vs PT's hands Reps/Minutes x 20 piriformis stretch Supine Exercise Name manual stretch L knee to opp shoulder Side left Reps/Minutes 3x1 min hip adductor stretch Supine Exercise Name manual stretch of L hip adductors Side left Reps/Minutes 3x1 min Sidelying Exercises hip extension stretch Side left Reps/Minutes 3x1 min Sitting Exercises scap Y and T Side bilateral Equipment Used bodyweight Reps/Minutes 8 x2 scap retraction Equipment Used level 2 band Reps/Minutes 10 x2 seated trunk extension Equipment Used level 4 band at back of the shoulder Reps/Minutes 6 x2 Comments band tied to w/c trunk extension and iso shd abd Sitting Exercise Name seated trunk extension Equipment Used level 2 band Reps/Minutes 6 x 2 Comments arm crossed with band on elbows and feet. Self-Care/Home Management Treatment Education Patient Education Home Exercise Program PT-OP-T Assessment and Plan Start: 02/14/19 15:09 Freq: Status: Active Protocol: Document 03/10/19 15:15 (Rec: 03/10/19 16:22 [email or web address]) Physical Therapy Assessment Goals hip mobility Impairment insufficient L hip mobility Sales Porter Goal (LTG) pt will increase her L hip mobility by 15 degrees of ROM grossly to improve functional mobility and gait efficiency LTG Duration 8 weeks Amb Impairment insufficient endurance and strength to amb > 1hour Sales Porter Goal (LTG) Pt will be able to amb with crutches in the house daily for an hour to improve quality of life. Possily trials for out of house ambulation LTG Duration 8 weeks self stretch HEP Impairment unable to do self hip stretch at home Sales Porter Goal (LTG) Pt will be able to perform self stretch at home independently and safely. LTG Duration 8 weeks Assessment Summary Assessment Pt showed improved L hip mobility with reduced muscle guarding and pain. Pt c/o ongoing B wrist pain during transfers and amb. recommended pt to attempt platform walker for next visit. Physical Therapy Plan Next Visit Focus/Plan Next Note Type Treatment Note Next Visit Plan attempt PF review HEP cont LLE flexibility and core stability, pelvic stabilization.
--- NOTE | 2019-03-14 12:27 | PT.OTN ---
Current Diagnoses Postpolio syndrome (03/14/19) Physical Therapy Treatment Note PT-OP-A Visit Information Start: 02/14/19 15:09 Freq: Status: Active Protocol: Document 03/14/19 09:30 HH (Rec: 03/14/19 12:27 HH [email or web address]) Out-Patient Physical Therapy Visit Information Visit Information Visit Type Treatment Note Visit Start Time 09:30 Visit Stop Time 10:15 Total Visit Minutes 45 Visit Number 6 Number of OPTOMETRIC TECH Visits 0 PT-OP-B Current Condition Start: 02/14/19 15:09 Freq: Status: Active Protocol: Document 02/14/19 09:45 HH (Rec: 02/14/19 15:32 HH [email or web address]) Current Condition History of Current Condition Onset Date 5 years ago Current Complaints Post polio syndrome, increased LE weakness, decreased activity tolerance History of Current Condition Pt is a 78yo female with post polio syndrome since 5 years ago. She presents to clinic with primary c/o increased LE weakness and decreased L hip mobility recently limited by pain. She also c/o she has difficult time to stretch her hip with theraband/ belt at home especially hip abd and extension in bed which causes her to fall easily. Pt also had an accident 4 years ago that a shelf fell on her L side which dislocated her L hip and broke her lumbar spine . Pt is power w/c bound since then but she does have a L hinged AFO and R hip orthotics to improve gait stability with crutches. she states she is able to stand around 15-20 mins with/without crutches, transfers between surface and amb with crutches for 0.5-1 hour 5 times a week independently at home. She has never amb out of her room due to high fall risks. Pt has fallen multiple times since 4 years ago but did not ahve any significant injuries. Prior Treatments and Tests Received outpatient PT at for UE strengthening in 2018 Treatment Goals Patient/Caregiver Goals 1. To learn and perform self stretches for B hip safely 2. To strengthen her back to tolerate longer standing time and amb distance 3. to be able to amb everyday with crutches for an hour Prior Functional Status Baseline Function- ADL's Modified Independent Baseline Function- Mobility Modified Independent Baseline Function- Gait with crutches (able to walk everyday) Baseline Function- Other Able to stand >1 hour able to amb > 1 hour with crutches able to amb daily with crutches Current Functional Impairments (Reported) Functional Limitations- ADL's mod Independent Functional Limitations- Mobility/Gait unable to amb more than 1 hour with crutches due to fatigue and poor balance Functional Limitations- Other Unable to perform self stretch to increase hip mobility PT-OP-C Subjective Start: 02/14/19 15:09 Freq: Status: Active Protocol: Document 03/14/19 09:30 HH (Rec: 03/14/19 12:27 HH [email or web address]) OP-PT Subjective Patient Comments Patient Comments Hip feels good but i have difficulty performing UE exercises at home. PT-OP-G Mobility & Gait Start: 02/14/19 15:09 Freq: Status: Active Protocol: Document 02/14/19 09:45 HH (Rec: 02/14/19 16:44 HH [email or web address]) OP Mobility Evaluation Transfers Sit to Stand Primarily WB on L LE Bed to Chair Transfers requires UE support to push off PT-OP-H Neuro Start: 02/14/19 15:09 Freq: Status: Active Protocol: Document 02/14/19 09:45 HH (Rec: 02/14/19 16:44 HH [email or web address]) Muscle Tone Tone Assessment Right Lower Extremity Flexor Tone Description Severe Hypotonicity Extensor Tone Description Severe Hypotonicity PT-OP-J Posture/Palpation/Skin Start: 02/14/19 15:09 Freq: Status: Active Protocol: Document 02/14/19 09:45 HH (Rec: 02/14/19 16:44 HH [email or web address]) Posture Evaluation Position Standing Evaluation View Anterior Weight Distribution Weight Shifted Left Decreased Wt.Bear on (R) Knee Posture (R) Genu Recurvatum Ankle/Foot Posture (R) Plantarflexed PT-OP-K Range of Motion Start: 02/14/19 15:09 Freq: Status: Active Protocol: Document 02/14/19 09:45 HH (Rec: 02/14/19 16:44 HH [email or web address]) Hip Goniometric Range of Motion Hip Left Passive Hip ROM WFL No Testing Position Supine Flexion w/Knee Flexed 100 Extension 0 Abduction 10 Knee Goniometric Range of Motion Knee Left Knee ROM WFL Yes PT-OP-L Special Tests Start: 02/14/19 15:09 Freq: Status: Active Protocol: Document 02/14/19 09:45 HH (Rec: 02/14/19 16:44 [email or web address]) Special Tests Hip Special Tests FADDIR Test Results +VE Comments deep joint pain at anterior and posterior hip pain Scour Test Test Results +ve Comments deep joint pain at anterior and posterior hip pain LUIS FERNANDO Test Results +ve Comments deep and stretching pain at anterior and posterior hip pain PT-OP-M Strength Start: 02/14/19 15:09 Freq: Status: Active Protocol: Document 02/14/19 09:45 (Rec: 02/14/19 16:44 [email or web address]) Hip Strength Hip Manual Muscle Testing Right Flexion (L2) 1 Trace Extension (S1) 1 Trace Abduction 1 Trace Adduction 1 Trace Left Flexion (L2) 4+ Good+ Extension (S1) 4+ Good+ Abduction 3+ Fair+ Adduction 4+ Good+ Knee Strength Knee Manual Muscle Testing Right Flexion (S2) 0 Zero Extension (L3) 0 Zero Left Flexion (S2) 5 Normal Extension (L3) 5 Normal Ankle/Foot Strength Ankle and Foot Manual Muscle Testing Right Dorsiflexion (L4) 0 Zero Plantarflexion (S1) 0 Zero Inversion 0 Zero Eversion (S1) 0 Zero Left Dorsiflexion (L4) 2- Poor- Plantarflexion (S1) 2- Poor- Inversion 2- Poor- Eversion (S1) 2- Poor- PT-OP-Q Treatments Start: 02/14/19 15:09 Freq: Status: Active Protocol: Document 03/14/19 09:30 (Rec: 03/14/19 12:27 [email or web address]) Therapeutic Exercises Supine Exercises hip adductor stretch Supine Exercise Name manual stretch of L hip adductors Side left Reps/Minutes 3x1 min Sidelying Exercises hip extension stretch Side left Reps/Minutes 3x1 min Sitting Exercises trunk rotation stretch Side bilateral Resistance PT's hands Reps/Minutes 10 s x 8 reps scap retraction Equipment Used level 2 band Reps/Minutes 10 x2 iso trunk extension Side bilateral Resistance PT's hands Reps/Minutes 10 s x 8 reps Comments resisted trunk extension Gait Training Gait Activity level gait with PW Device Used PW Level of Assistance CGA Surface Ground level Distance/Duration 50 feet Comments attempt PW today but pt c/o increase in back pain due to trunk hyperextension Manual Therapy Treatment Joint Mobilizations L hip distraction Grade III Body Position Supine Reps/Duration 10 secs x 8 Comments inferior distraction Self-Care/Home Management Treatment Education Patient Education Home Exercise Program Other Education use door hinge to stabilize resistance band for scap retraction exercise PT-OP-T Assessment and Plan Start: 02/14/19 15:09 Freq: Status: Active Protocol: Document 03/14/19 09:30 HH (Rec: 03/14/19 12:27 HH [email or web address]) Physical Therapy Assessment Goals hip mobility Impairment insufficient L hip mobility Residential Goal (LTG) pt will increase her L hip mobility by 15 degrees of ROM grossly to improve functional mobility and gait efficiency LTG Duration 8 weeks Amb Impairment insufficient endurance and strength to amb > 1hour Ballistic Technician Goal (LTG) Pt will be able to amb with crutches in the house daily for an hour to improve quality of life. Possily trials for out of house ambulation LTG Duration 8 weeks self stretch HEP Impairment unable to do self hip stretch at home Ballistic Technician Goal (LTG) Pt will be able to perform self stretch at home independently and safely. LTG Duration 8 weeks Assessment Summary Assessment Pt cont to show improved L hip mobility. Attempted gait training with PW but increase in LBP noticed due to trunk hyperextension. Review HEP today to use door hinge for resistance band. Physical Therapy Plan Next Visit Focus/Plan Next Note Type Treatment Note Next Visit Plan LE strengthening with open chain exercise. review HEP cont LLE flexibility and core stability, pelvic stabilization.
--- NOTE | 2019-03-16 19:43 | PT.OTN ---
Current Diagnoses Postpolio syndrome (03/16/19) Physical Therapy Treatment Note PT-OP-A Visit Information Start: 02/14/19 15:09 Freq: Status: Active Protocol: Document 03/16/19 16:45 HH (Rec: 03/16/19 19:43 HH [email or web address]) Out-Patient Physical Therapy Visit Information Visit Information Visit Type Treatment Note Visit Start Time 16:45 Visit Stop Time 17:30 Total Visit Minutes 45 Visit Number 7 Number of PLANT MAINTENANCE WORKER Visits 0 PT-OP-B Current Condition Start: 02/14/19 15:09 Freq: Status: Active Protocol: Document 02/14/19 09:45 HH (Rec: 02/14/19 15:32 HH [email or web address]) Current Condition History of Current Condition Onset Date 5 years ago Current Complaints Post polio syndrome, increased LE weakness, decreased activity tolerance History of Current Condition Pt is a 78yo female with post polio syndrome since 5 years ago. She presents to clinic with primary c/o increased LE weakness and decreased L hip mobility recently limited by pain. She also c/o she has difficult time to stretch her hip with theraband/ belt at home especially hip abd and extension in bed which causes her to fall easily. Pt also had an accident 4 years ago that a shelf fell on her L side which dislocated her L hip and broke her lumbar spine . Pt is power w/c bound since then but she does have a L hinged AFO and R hip orthotics to improve gait stability with crutches. she states she is able to stand around 15-20 mins with/without crutches, transfers between surface and amb with crutches for 0.5-1 hour 5 times a week independently at home. She has never amb out of her room due to high fall risks. Pt has fallen multiple times since 4 years ago but did not ahve any significant injuries. Prior Treatments and Tests Received outpatient PT at for UE strengthening in 2018 Treatment Goals Patient/Caregiver Goals 1. To learn and perform self stretches for B hip safely 2. To strengthen her back to tolerate longer standing time and amb distance 3. to be able to amb everyday with crutches for an hour Prior Functional Status Baseline Function- ADL's Modified Independent Baseline Function- Mobility Modified Independent Baseline Function- Gait with crutches (able to walk everyday) Baseline Function- Other Able to stand >1 hour able to amb > 1 hour with crutches able to amb daily with crutches Current Functional Impairments (Reported) Functional Limitations- ADL's mod Independent Functional Limitations- Mobility/Gait unable to amb more than 1 hour with crutches due to fatigue and poor balance Functional Limitations- Other Unable to perform self stretch to increase hip mobility PT-OP-C Subjective Start: 02/14/19 15:09 Freq: Status: Active Protocol: Document 03/16/19 16:45 HH (Rec: 03/16/19 19:43 HH [email or web address]) OP-PT Subjective Patient Comments Patient Comments Hip feels good but i am sore after a long walk yesterday with a friend. PT-OP-G Mobility & Gait Start: 02/14/19 15:09 Freq: Status: Active Protocol: Document 02/14/19 09:45 HH (Rec: 02/14/19 16:44 HH [email or web address]) OP Mobility Evaluation Transfers Sit to Stand Primarily WB on L LE Bed to Chair Transfers requires UE support to push off PT-OP-H Neuro Start: 02/14/19 15:09 Freq: Status: Active Protocol: Document 02/14/19 09:45 HH (Rec: 02/14/19 16:44 HH [email or web address]) Muscle Tone Tone Assessment Right Lower Extremity Flexor Tone Description Severe Hypotonicity Extensor Tone Description Severe Hypotonicity PT-OP-J Posture/Palpation/Skin Start: 02/14/19 15:09 Freq: Status: Active Protocol: Document 02/14/19 09:45 HH (Rec: 02/14/19 16:44 HH [email or web address]) Posture Evaluation Position Standing Evaluation View Anterior Weight Distribution Weight Shifted Left Decreased Wt.Bear on (R) Knee Posture (R) Genu Recurvatum Ankle/Foot Posture (R) Plantarflexed PT-OP-K Range of Motion Start: 02/14/19 15:09 Freq: Status: Active Protocol: Document 02/14/19 09:45 HH (Rec: 02/14/19 16:44 HH [email or web address]) Hip Goniometric Range of Motion Hip Left Passive Hip ROM WFL No Testing Position Supine Flexion w/Knee Flexed 100 Extension 0 Abduction 10 Knee Goniometric Range of Motion Knee Left Knee ROM WFL Yes PT-OP-L Special Tests Start: 02/14/19 15:09 Freq: Status: Active Protocol: Document 02/14/19 09:45 (Rec: 02/14/19 16:44 [email or web address]) Special Tests Hip Special Tests FADDIR Test Results +VE Comments deep joint pain at anterior and posterior hip pain Scour Test Test Results +ve Comments deep joint pain at anterior and posterior hip pain LUIS FERNANDO Test Results +ve Comments deep and stretching pain at anterior and posterior hip pain PT-OP-M Strength Start: 02/14/19 15:09 Freq: Status: Active Protocol: Document 02/14/19 09:45 (Rec: 02/14/19 16:44 [email or web address]) Hip Strength Hip Manual Muscle Testing Right Flexion (L2) 1 Trace Extension (S1) 1 Trace Abduction 1 Trace Adduction 1 Trace Left Flexion (L2) 4+ Good+ Extension (S1) 4+ Good+ Abduction 3+ Fair+ Adduction 4+ Good+ Knee Strength Knee Manual Muscle Testing Right Flexion (S2) 0 Zero Extension (L3) 0 Zero Left Flexion (S2) 5 Normal Extension (L3) 5 Normal Ankle/Foot Strength Ankle and Foot Manual Muscle Testing Right Dorsiflexion (L4) 0 Zero Plantarflexion (S1) 0 Zero Inversion 0 Zero Eversion (S1) 0 Zero Left Dorsiflexion (L4) 2- Poor- Plantarflexion (S1) 2- Poor- Inversion 2- Poor- Eversion (S1) 2- Poor- PT-OP-Q Treatments Start: 02/14/19 15:09 Freq: Status: Active Protocol: Document 03/16/19 16:45 (Rec: 03/16/19 19:43 [email or web address]) Therapeutic Exercises Supine Exercises hip adductor stretch Supine Exercise Name manual stretch of L hip adductors Side left Reps/Minutes 3x1 min Sidelying Exercises hip extension stretch Side left Reps/Minutes 3x1 min Sitting Exercises table stretch Side bilateral Equipment Used towel Reps/Minutes 10 on each direction Comments diagonal and foward direction nauruan twise Equipment Used 2 lbs ball Comments ball tap on side seated flexion Equipment Used PT resistance Reps/Minutes 10 secs hold x5 seated trunk extension Equipment Used PT resistance Reps/Minutes 10 secs hold x5 iso trunk extension Side bilateral Resistance PT's hands Reps/Minutes 10 s x 8 reps Comments resisted trunk extension Manual Therapy Treatment Joint Mobilizations L hip distraction Grade III Body Position Supine Reps/Duration 10 secs x 8 Comments inferior distraction PT-OP-T Assessment and Plan Start: 02/14/19 15:09 Freq: Status: Active Protocol: Document 03/16/19 16:45 HH (Rec: 03/16/19 19:43 HH [email or web address]) Physical Therapy Assessment Goals hip mobility Impairment insufficient L hip mobility Half-Way Goal (LTG) pt will increase her L hip mobility by 15 degrees of ROM grossly to improve functional mobility and gait efficiency LTG Duration 8 weeks Amb Impairment insufficient endurance and strength to amb > 1hour Health Occupations Instructor Goal (LTG) Pt will be able to amb with crutches in the house daily for an hour to improve quality of life. Possily trials for out of house ambulation LTG Duration 8 weeks self stretch HEP Impairment unable to do self hip stretch at home Health Occupations Instructor Goal (LTG) Pt will be able to perform self stretch at home independently and safely. LTG Duration 8 weeks Assessment Summary Assessment Pt cont to show improve hip mobility with reduced muscle guarding. Progressed to seated abd and shd strengthening ex today. Also discussed with pt regarding acquiring platform crutches to reduce stress on B wrists. Physical Therapy Plan Next Visit Focus/Plan Next Note Type Treatment Note Next Visit Plan review HEP seated abd and shd strengthening cont hip mob ex
--- NOTE | 2019-03-21 10:37 | PT.OTN ---
Current Diagnoses Postpolio syndrome (03/21/19) Physical Therapy Treatment Note PT-OP-A Visit Information Start: 02/14/19 15:09 Freq: Status: Active Protocol: Document 03/21/19 09:45 DCW (Rec: 03/21/19 10:37 DCW [id number]) Out-Patient Physical Therapy Visit Information Visit Information Visit Type Treatment Note Visit Start Time 09:45 Visit Stop Time 10:30 Total Visit Minutes 45 Visit Number 8 Number of WHITE WORK CLEANER Visits 0 PT-OP-B Current Condition Start: 02/14/19 15:09 Freq: Status: Active Protocol: Document 02/14/19 09:45 HH (Rec: 02/14/19 15:32 HH [email or web address]) Current Condition History of Current Condition Onset Date 5 years ago Current Complaints Post polio syndrome, increased LE weakness, decreased activity tolerance History of Current Condition Pt is a 78yo female with post polio syndrome since 5 years ago. She presents to clinic with primary c/o increased LE weakness and decreased L hip mobility recently limited by pain. She also c/o she has difficult time to stretch her hip with theraband/ belt at home especially hip abd and extension in bed which causes her to fall easily. Pt also had an accident 4 years ago that a shelf fell on her L side which dislocated her L hip and broke her lumbar spine . Pt is power w/c bound since then but she does have a L hinged AFO and R hip orthotics to improve gait stability with crutches. she states she is able to stand around 15-20 mins with/without crutches, transfers between surface and amb with crutches for 0.5-1 hour 5 times a week independently at home. She has never amb out of her room due to high fall risks. Pt has fallen multiple times since 4 years ago but did not ahve any significant injuries. Prior Treatments and Tests Received outpatient PT at for UE strengthening in 2018 Treatment Goals Patient/Caregiver Goals 1. To learn and perform self stretches for B hip safely 2. To strengthen her back to tolerate longer standing time and amb distance 3. to be able to amb everyday with crutches for an hour Prior Functional Status Baseline Function- ADL's Modified Independent Baseline Function- Mobility Modified Independent Baseline Function- Gait with crutches (able to walk everyday) Baseline Function- Other Able to stand >1 hour able to amb > 1 hour with crutches able to amb daily with crutches Current Functional Impairments (Reported) Functional Limitations- ADL's mod Independent Functional Limitations- Mobility/Gait unable to amb more than 1 hour with crutches due to fatigue and poor balance Functional Limitations- Other Unable to perform self stretch to increase hip mobility PT-OP-C Subjective Start: 02/14/19 15:09 Freq: Status: Active Protocol: Document 03/21/19 09:45 DCW (Rec: 03/21/19 10:37 DCW [id number]) OP-PT Subjective Patient Comments Patient Comments Pt feels like she has been doing much better, and she can feel a big difference, but she is worried about her Medicare insurance running out , so she is concerned that she will be stuck with a bill later, and may need to reduce her planned number of visits. PT-OP-G Mobility & Gait Start: 02/14/19 15:09 Freq: Status: Active Protocol: Document 02/14/19 09:45 HH (Rec: 02/14/19 16:44 HH [email or web address]) OP Mobility Evaluation Transfers Sit to Stand Primarily WB on L LE Bed to Chair Transfers requires UE support to push off PT-OP-H Neuro Start: 02/14/19 15:09 Freq: Status: Active Protocol: Document 02/14/19 09:45 HH (Rec: 02/14/19 16:44 HH [email or web address]) Muscle Tone Tone Assessment Right Lower Extremity Flexor Tone Description Severe Hypotonicity Extensor Tone Description Severe Hypotonicity PT-OP-J Posture/Palpation/Skin Start: 02/14/19 15:09 Freq: Status: Active Protocol: Document 02/14/19 09:45 HH (Rec: 02/14/19 16:44 HH [email or web address]) Posture Evaluation Position Standing Evaluation View Anterior Weight Distribution Weight Shifted Left Decreased Wt.Bear on (R) Knee Posture (R) Genu Recurvatum Ankle/Foot Posture (R) Plantarflexed PT-OP-K Range of Motion Start: 02/14/19 15:09 Freq: Status: Active Protocol: Document 02/14/19 09:45 HH (Rec: 02/14/19 16:44 HH [email or web address]) Hip Goniometric Range of Motion Hip Left Passive Hip ROM WFL No Testing Position Supine Flexion w/Knee Flexed 100 Extension 0 Abduction 10 Knee Goniometric Range of Motion Knee Left Knee ROM WFL Yes PT-OP-L Special Tests Start: 02/14/19 15:09 Freq: Status: Active Protocol: Document 02/14/19 09:45 HH (Rec: 02/14/19 16:44 HH [email or web address]) Special Tests Hip Special Tests FADDIR Test Results +VE Comments deep joint pain at anterior and posterior hip pain Scour Test Test Results +ve Comments deep joint pain at anterior and posterior hip pain LUIS FERNANDO Test Results +ve Comments deep and stretching pain at anterior and posterior hip pain PT-OP-M Strength Start: 02/14/19 15:09 Freq: Status: Active Protocol: Document 02/14/19 09:45 HH (Rec: 02/14/19 16:44 HH [email or web address]) Hip Strength Hip Manual Muscle Testing Right Flexion (L2) 1 Trace Extension (S1) 1 Trace Abduction 1 Trace Adduction 1 Trace Left Flexion (L2) 4+ Good+ Extension (S1) 4+ Good+ Abduction 3+ Fair+ Adduction 4+ Good+ Knee Strength Knee Manual Muscle Testing Right Flexion (S2) 0 Zero Extension (L3) 0 Zero Left Flexion (S2) 5 Normal Extension (L3) 5 Normal Ankle/Foot Strength Ankle and Foot Manual Muscle Testing Right Dorsiflexion (L4) 0 Zero Plantarflexion (S1) 0 Zero Inversion 0 Zero Eversion (S1) 0 Zero Left Dorsiflexion (L4) 2- Poor- Plantarflexion (S1) 2- Poor- Inversion 2- Poor- Eversion (S1) 2- Poor- PT-OP-Q Treatments Start: 02/14/19 15:09 Freq: Status: Active Protocol: Document 03/21/19 09:45 DCW (Rec: 03/21/19 10:37 DCW [id number]) Therapeutic Exercises Supine Exercises piriformis stretch Supine Exercise Name manual stretch L knee to opp shoulder Side left Reps/Minutes 3x1 min hip adductor stretch Supine Exercise Name manual stretch of L hip adductors Side left Reps/Minutes 3x1 min Sitting Exercises return to neutral from lean Sitting Exercise Name pt positioned into fwd, bkwd, or lateral flexion, returns to neutral iso trunk rotation Side bilateral Resistance PT's hands Reps/Minutes 10 s x8 reps Comments resisted trunk rotation [employer] Equipment Used 3 lbs ball Comments ball tap on side seated flexion Equipment Used PT resistance Reps/Minutes 10 secs hold x5 seated trunk extension Equipment Used PT resistance Reps/Minutes 10 secs hold x5 iso trunk extension Side bilateral Resistance PT's hands Reps/Minutes 10 s x 8 reps Comments resisted trunk extension Manual Therapy Treatment Joint Mobilizations L hip distraction Grade III Body Position Supine Comments lateral distraction /c strap Self-Care/Home Management Treatment Education Other Education Insurance auth rules for medicare, addressing pt's concerns PT-OP-T Assessment and Plan Start: 02/14/19 15:09 Freq: Status: Active Protocol: Document 03/21/19 09:45 DCW (Rec: 03/21/19 10:37 DCW [id number]) Physical Therapy Assessment Goals hip mobility Impairment insufficient L hip mobility Shelter Goal (LTG) pt will increase her L hip mobility by 15 degrees of ROM grossly to improve functional mobility and gait efficiency LTG Duration 8 weeks Amb Impairment insufficient endurance and strength to amb > 1hour Shelter Goal (LTG) Pt will be able to amb with crutches in the house daily for an hour to improve quality of life. Possily trials for out of house ambulation LTG Duration 8 weeks self stretch HEP Impairment unable to do self hip stretch at home Lighting Director Goal (LTG) Pt will be able to perform self stretch at home independently and safely. LTG Duration 8 weeks Assessment Summary Assessment Pt showing notable improvement with trunk strength and hip mobility, also much more optimistic at the end of today's session regarding her insurance authorization Physical Therapy Plan Next Visit Focus/Plan Next Note Type Treatment Note Next Visit Plan review HEP seated abd and shd strengthening cont hip mob ex
--- NOTE | 2019-03-23 16:58 | PT.OTN ---
Current Diagnoses Postpolio syndrome (03/23/19) Physical Therapy Treatment Note PT-OP-A Visit Information Start: 02/14/19 15:09 Freq: Status: Active Protocol: Document 03/23/19 16:45 SA (Rec: 03/23/19 16:58 SA [email or web address]) Out-Patient Physical Therapy Visit Information Visit Information Visit Type Treatment Note Visit Start Time 16:00 Visit Stop Time 16:44 Total Visit Minutes 44 Visit Number 9 Number of FLOOR INSTALLER Visits 1 PT-OP-B Current Condition Start: 02/14/19 15:09 Freq: Status: Active Protocol: Document 02/14/19 09:45 HH (Rec: 02/14/19 15:32 HH [email or web address]) Current Condition History of Current Condition Onset Date 5 years ago Current Complaints Post polio syndrome, increased LE weakness, decreased activity tolerance History of Current Condition Pt is a 78yo female with post polio syndrome since 5 years ago. She presents to clinic with primary c/o increased LE weakness and decreased L hip mobility recently limited by pain. She also c/o she has difficult time to stretch her hip with theraband/ belt at home especially hip abd and extension in bed which causes her to fall easily. Pt also had an accident 4 years ago that a shelf fell on her L side which dislocated her L hip and broke her lumbar spine . Pt is power w/c bound since then but she does have a L hinged AFO and R hip orthotics to improve gait stability with crutches. she states she is able to stand around 15-20 mins with/without crutches, transfers between surface and amb with crutches for 0.5-1 hour 5 times a week independently at home. She has never amb out of her room due to high fall risks. Pt has fallen multiple times since 4 years ago but did not ahve any significant injuries. Prior Treatments and Tests Received outpatient PT at for UE strengthening in 2018 Treatment Goals Patient/Caregiver Goals 1. To learn and perform self stretches for B hip safely 2. To strengthen her back to tolerate longer standing time and amb distance 3. to be able to amb everyday with crutches for an hour Prior Functional Status Baseline Function- ADL's Modified Independent Baseline Function- Mobility Modified Independent Baseline Function- Gait with crutches (able to walk everyday) Baseline Function- Other Able to stand >1 hour able to amb > 1 hour with crutches able to amb daily with crutches Current Functional Impairments (Reported) Functional Limitations- ADL's mod Independent Functional Limitations- Mobility/Gait unable to amb more than 1 hour with crutches due to fatigue and poor balance Functional Limitations- Other Unable to perform self stretch to increase hip mobility PT-OP-C Subjective Start: 02/14/19 15:09 Freq: Status: Active Protocol: Document 03/23/19 16:45 SA (Rec: 03/23/19 16:58 SA [email or web address]) OP-PT Subjective Patient Comments Patient Comments Pt states she feels like her core muscles are getting stronger, doing HEP daily. PT-OP-G Mobility & Gait Start: 02/14/19 15:09 Freq: Status: Active Protocol: Document 02/14/19 09:45 HH (Rec: 02/14/19 16:44 HH [email or web address]) OP Mobility Evaluation Transfers Sit to Stand Primarily WB on L LE Bed to Chair Transfers requires UE support to push off PT-OP-H Neuro Start: 02/14/19 15:09 Freq: Status: Active Protocol: Document 02/14/19 09:45 HH (Rec: 02/14/19 16:44 HH [email or web address]) Muscle Tone Tone Assessment Right Lower Extremity Flexor Tone Description Severe Hypotonicity Extensor Tone Description Severe Hypotonicity PT-OP-J Posture/Palpation/Skin Start: 02/14/19 15:09 Freq: Status: Active Protocol: Document 02/14/19 09:45 HH (Rec: 02/14/19 16:44 HH [email or web address]) Posture Evaluation Position Standing Evaluation View Anterior Weight Distribution Weight Shifted Left Decreased Wt.Bear on (R) Knee Posture (R) Genu Recurvatum Ankle/Foot Posture (R) Plantarflexed PT-OP-K Range of Motion Start: 02/14/19 15:09 Freq: Status: Active Protocol: Document 02/14/19 09:45 HH (Rec: 02/14/19 16:44 HH [email or web address]) Hip Goniometric Range of Motion Hip Left Passive Hip ROM WFL No Testing Position Supine Flexion w/Knee Flexed 100 Extension 0 Abduction 10 Knee Goniometric Range of Motion Knee Left Knee ROM WFL Yes PT-OP-L Special Tests Start: 02/14/19 15:09 Freq: Status: Active Protocol: Document 02/14/19 09:45 (Rec: 02/14/19 16:44 HH [email or web address]) Special Tests Hip Special Tests FADDIR Test Results +VE Comments deep joint pain at anterior and posterior hip pain Scour Test Test Results +ve Comments deep joint pain at anterior and posterior hip pain LUIS FERNANDO Test Results +ve Comments deep and stretching pain at anterior and posterior hip pain PT-OP-M Strength Start: 02/14/19 15:09 Freq: Status: Active Protocol: Document 02/14/19 09:45 (Rec: 02/14/19 16:44 [email or web address]) Hip Strength Hip Manual Muscle Testing Right Flexion (L2) 1 Trace Extension (S1) 1 Trace Abduction 1 Trace Adduction 1 Trace Left Flexion (L2) 4+ Good+ Extension (S1) 4+ Good+ Abduction 3+ Fair+ Adduction 4+ Good+ Knee Strength Knee Manual Muscle Testing Right Flexion (S2) 0 Zero Extension (L3) 0 Zero Left Flexion (S2) 5 Normal Extension (L3) 5 Normal Ankle/Foot Strength Ankle and Foot Manual Muscle Testing Right Dorsiflexion (L4) 0 Zero Plantarflexion (S1) 0 Zero Inversion 0 Zero Eversion (S1) 0 Zero Left Dorsiflexion (L4) 2- Poor- Plantarflexion (S1) 2- Poor- Inversion 2- Poor- Eversion (S1) 2- Poor- PT-OP-Q Treatments Start: 02/14/19 15:09 Freq: Status: Active Protocol: Document 03/23/19 16:45 SA (Rec: 03/23/19 16:58 SA [email or web address]) Therapeutic Exercises Supine Exercises hip abduction iso Side bilateral Resistance vs PT's hands Reps/Minutes x 20 piriformis stretch Supine Exercise Name manual stretch L knee to opp shoulder Side left Reps/Minutes 3x1 min hip adductor stretch Supine Exercise Name manual stretch of L hip adductors Side left Reps/Minutes 3x1 min SKC Side bilateral Reps/Minutes 3 x 1 min Sidelying Exercises hip extension stretch Side left Reps/Minutes 3x1 min Sitting Exercises return to neutral from lean Sitting Exercise Name pt positioned into fwd, bkwd, or lateral flexion, returns to neutral iso trunk rotation Side bilateral Resistance PT's hands Reps/Minutes 10 s x8 reps Comments resisted trunk rotation table stretch Side bilateral Equipment Used towel Reps/Minutes 10 on each direction Comments diagonal and foward direction chilean twise Equipment Used 3 lbs ball Comments ball tap on side seated flexion Equipment Used PT resistance Reps/Minutes 10 secs hold x5 iso trunk extension Side bilateral Resistance PT's hands Reps/Minutes 10 s x 8 reps Comments resisted trunk extension Manual Therapy Treatment Joint Mobilizations L hip distraction Grade III Body Position Supine Comments lateral distraction /c strap PT-OP-T Assessment and Plan Start: 02/14/19 15:09 Freq: Status: Active Protocol: Document 03/23/19 16:45 SA (Rec: 03/23/19 16:58 SA [email or web address]) Physical Therapy Assessment Assessment Summary Assessment Pt progressing with hip/core strength. Decreased hip pain and tightness with stretching. Physical Therapy Plan Next Visit Focus/Plan Next Note Type Treatment Note Next Visit Plan review HEP seated abd and shd strengthening cont hip mob ex
--- NOTE | 2019-04-04 10:29 | PT.OTN ---
Current Diagnoses Postpolio syndrome (04/04/19) Physical Therapy Treatment Note PT-OP-A Visit Information Start: 02/14/19 15:09 Freq: Status: Active Protocol: Document 04/04/19 09:45 DCW (Rec: 04/04/19 10:29 DCW [id number]) Out-Patient Physical Therapy Visit Information Visit Information Visit Type Progress Note Visit Start Time 09:45 Visit Stop Time 10:30 Total Visit Minutes 45 Visit Number 8 Number of BUGGY DRIVER Visits 0 PT-OP-B Current Condition Start: 02/14/19 15:09 Freq: Status: Active Protocol: Document 02/14/19 09:45 HH (Rec: 02/14/19 15:32 HH [email or web address]) Current Condition History of Current Condition Onset Date 5 years ago Current Complaints Post polio syndrome, increased LE weakness, decreased activity tolerance History of Current Condition Pt is a 78yo female with post polio syndrome since 5 years ago. She presents to clinic with primary c/o increased LE weakness and decreased L hip mobility recently limited by pain. She also c/o she has difficult time to stretch her hip with theraband/ belt at home especially hip abd and extension in bed which causes her to fall easily. Pt also had an accident 4 years ago that a shelf fell on her L side which dislocated her L hip and broke her lumbar spine . Pt is power w/c bound since then but she does have a L hinged AFO and R hip orthotics to improve gait stability with crutches. she states she is able to stand around 15-20 mins with/without crutches, transfers between surface and amb with crutches for 0.5-1 hour 5 times a week independently at home. She has never amb out of her room due to high fall risks. Pt has fallen multiple times since 4 years ago but did not ahve any significant injuries. Prior Treatments and Tests Received outpatient PT at for UE strengthening in 2018 Treatment Goals Patient/Caregiver Goals 1. To learn and perform self stretches for B hip safely 2. To strengthen her back to tolerate longer standing time and amb distance 3. to be able to amb everyday with crutches for an hour Prior Functional Status Baseline Function- ADL's Modified Independent Baseline Function- Mobility Modified Independent Baseline Function- Gait with crutches (able to walk everyday) Baseline Function- Other Able to stand >1 hour able to amb > 1 hour with crutches able to amb daily with crutches Current Functional Impairments (Reported) Functional Limitations- ADL's mod Independent Functional Limitations- Mobility/Gait unable to amb more than 1 hour with crutches due to fatigue and poor balance Functional Limitations- Other Unable to perform self stretch to increase hip mobility PT-OP-C Subjective Start: 02/14/19 15:09 Freq: Status: Active Protocol: Document 04/04/19 09:45 DCW (Rec: 04/04/19 10:29 DCW [id number]) OP-PT Subjective Patient Comments Patient Comments Pt reports she is doing well today, but last week was awful, because she was trying to get out of her shower quickly to answer her phone, and slipped transferring to her chair, hitting and then sliding down her wall. PT notes she is just a little bruised on her right shoulder and elbow, but was able to catch herself before ending up on the floor. PT-OP-G Mobility & Gait Start: 02/14/19 15:09 Freq: Status: Active Protocol: Document 02/14/19 09:45 HH (Rec: 02/14/19 16:44 HH [email or web address]) OP Mobility Evaluation Transfers Sit to Stand Primarily WB on L LE Bed to Chair Transfers requires UE support to push off PT-OP-H Neuro Start: 02/14/19 15:09 Freq: Status: Active Protocol: Document 02/14/19 09:45 HH (Rec: 02/14/19 16:44 HH [email or web address]) Muscle Tone Tone Assessment Right Lower Extremity Flexor Tone Description Severe Hypotonicity Extensor Tone Description Severe Hypotonicity PT-OP-J Posture/Palpation/Skin Start: 02/14/19 15:09 Freq: Status: Active Protocol: Document 02/14/19 09:45 HH (Rec: 02/14/19 16:44 HH [email or web address]) Posture Evaluation Position Standing Evaluation View Anterior Weight Distribution Weight Shifted Left Decreased Wt.Bear on (R) Knee Posture (R) Genu Recurvatum Ankle/Foot Posture (R) Plantarflexed PT-OP-K Range of Motion Start: 02/14/19 15:09 Freq: Status: Active Protocol: Document 02/14/19 09:45 HH (Rec: 02/14/19 16:44 HH [email or web address]) Hip Goniometric Range of Motion Hip Left Passive Hip ROM WFL No Testing Position Supine Flexion w/Knee Flexed 100 Extension 0 Abduction 10 Knee Goniometric Range of Motion Knee Left Knee ROM WFL Yes PT-OP-L Special Tests Start: 02/14/19 15:09 Freq: Status: Active Protocol: Document 02/14/19 09:45 HH (Rec: 02/14/19 16:44 HH [email or web address]) Special Tests Hip Special Tests FADDIR Test Results +VE Comments deep joint pain at anterior and posterior hip pain Scour Test Test Results +ve Comments deep joint pain at anterior and posterior hip pain LUIS FERNANDO Test Results +ve Comments deep and stretching pain at anterior and posterior hip pain PT-OP-M Strength Start: 02/14/19 15:09 Freq: Status: Active Protocol: Document 02/14/19 09:45 HH (Rec: 02/14/19 16:44 HH [email or web address]) Hip Strength Hip Manual Muscle Testing Right Flexion (L2) 1 Trace Extension (S1) 1 Trace Abduction 1 Trace Adduction 1 Trace Left Flexion (L2) 4+ Good+ Extension (S1) 4+ Good+ Abduction 3+ Fair+ Adduction 4+ Good+ Knee Strength Knee Manual Muscle Testing Right Flexion (S2) 0 Zero Extension (L3) 0 Zero Left Flexion (S2) 5 Normal Extension (L3) 5 Normal Ankle/Foot Strength Ankle and Foot Manual Muscle Testing Right Dorsiflexion (L4) 0 Zero Plantarflexion (S1) 0 Zero Inversion 0 Zero Eversion (S1) 0 Zero Left Dorsiflexion (L4) 2- Poor- Plantarflexion (S1) 2- Poor- Inversion 2- Poor- Eversion (S1) 2- Poor- PT-OP-Q Treatments Start: 02/14/19 15:09 Freq: Status: Active Protocol: Document 04/04/19 09:45 DCW (Rec: 04/04/19 10:29 DCW [id number]) Therapeutic Exercises Supine Exercises hip abduction iso Side bilateral Resistance vs PT's hands Reps/Minutes x 20 piriformis stretch Supine Exercise Name manual stretch L knee to opp shoulder Side left Reps/Minutes 3x1 min hip adductor stretch Supine Exercise Name manual stretch of L hip adductors Side left Reps/Minutes 3x1 min SKC Side bilateral Reps/Minutes 3 x 1 min Sidelying Exercises hip extension stretch Side left Reps/Minutes 3x1 min Sitting Exercises weighted ball lifts Sitting Exercise Name weighted ball lifts Resistance 3.3# Reps/Minutes 2x12 Comments [id number] return to neutral from lean Sitting Exercise Name pt positioned into fwd, bkwd, or lateral flexion, returns to neutral iso trunk rotation Side bilateral Resistance PT's hands Reps/Minutes 10 s x8 reps Comments resisted trunk rotation kuwaiti twise Equipment Used 3 lbs ball Comments ball tap on side seated flexion Equipment Used PT resistance Reps/Minutes 10 secs hold x5 iso trunk extension Side bilateral Resistance PT's hands Reps/Minutes 10 s x 8 reps Comments resisted trunk extension Manual Therapy Treatment Soft Tissue Mobilization L Adductor STM Body Location L Adductor Mobilization Type Strain/Counterstrain Sustained Pressure Body Position Hooklying Joint Mobilizations L hip distraction Grade III Body Position Supine Comments lateral distraction /c strap PT-OP-T Assessment and Plan Start: 02/14/19 15:09 Freq: Status: Active Protocol: Document 04/04/19 09:45 DCW (Rec: 04/04/19 10:29 DCW [id number]) Physical Therapy Assessment Goals hip mobility Impairment insufficient L hip mobility Halfway Goal (LTG) pt will increase her L hip mobility by 15 degrees of ROM grossly to improve functional mobility and gait efficiency LTG Duration 8 weeks Amb Impairment insufficient endurance and strength to amb > 1hour Halfway Goal (LTG) Pt will be able to amb with crutches in the house daily for an hour to improve quality of life. Possily trials for out of house ambulation LTG Duration 8 weeks self stretch HEP Impairment unable to do self hip stretch at home Prepress Operator Goal (LTG) Pt will be able to perform self stretch at home independently and safely. LTG Duration 8 weeks Assessment Summary Assessment Pt adductors tighter than normal today following her fall last week, but responded well to trewatment Physical Therapy Plan Frequency and Duration Frequency of Treatment 2x/Week Duration of Treatment 8 weeks Plan of Care Start Date 02/14/19 Plan of Care End Date 04/16/19 Next Visit Focus/Plan Next Note Type Treatment Note Next Visit Plan review HEP seated abd and shd strengthening cont hip mob ex
--- NOTE | 2019-04-04 10:30 | PT.OTN ---
Current Diagnoses Postpolio syndrome (04/20/19) Physical Therapy Treatment Note PT-OP-A Visit Information Start: 02/14/19 15:09 Freq: Status: Active Protocol: Document 04/04/19 09:45 DCW (Rec: 04/04/19 10:29 DCW [id number]) Out-Patient Physical Therapy Visit Information Visit Information Visit Type Progress Note Visit Start Time 09:45 Visit Stop Time 10:30 Total Visit Minutes 45 Visit Number 8 Number of PUBLIC POLICY MEDIATOR Visits 0 PT-OP-B Current Condition Start: 02/14/19 15:09 Freq: Status: Active Protocol: Document 02/14/19 09:45 HH (Rec: 02/14/19 15:32 HH [email or web address]) Current Condition History of Current Condition Onset Date 5 years ago Current Complaints Post polio syndrome, increased LE weakness, decreased activity tolerance History of Current Condition Pt is a 78yo female with post polio syndrome since 5 years ago. She presents to clinic with primary c/o increased LE weakness and decreased L hip mobility recently limited by pain. She also c/o she has difficult time to stretch her hip with theraband/ belt at home especially hip abd and extension in bed which causes her to fall easily. Pt also had an accident 4 years ago that a shelf fell on her L side which dislocated her L hip and broke her lumbar spine . Pt is power w/c bound since then but she does have a L hinged AFO and R hip orthotics to improve gait stability with crutches. she states she is able to stand around 15-20 mins with/without crutches, transfers between surface and amb with crutches for 0.5-1 hour 5 times a week independently at home. She has never amb out of her room due to high fall risks. Pt has fallen multiple times since 4 years ago but did not ahve any significant injuries. Prior Treatments and Tests Received outpatient PT at for UE strengthening in 2018 Treatment Goals Patient/Caregiver Goals 1. To learn and perform self stretches for B hip safely 2. To strengthen her back to tolerate longer standing time and amb distance 3. to be able to amb everyday with crutches for an hour Prior Functional Status Baseline Function- ADL's Modified Independent Baseline Function- Mobility Modified Independent Baseline Function- Gait with crutches (able to walk everyday) Baseline Function- Other Able to stand >1 hour able to amb > 1 hour with crutches able to amb daily with crutches Current Functional Impairments (Reported) Functional Limitations- ADL's mod Independent Functional Limitations- Mobility/Gait unable to amb more than 1 hour with crutches due to fatigue and poor balance Functional Limitations- Other Unable to perform self stretch to increase hip mobility PT-OP-C Subjective Start: 02/14/19 15:09 Freq: Status: Active Protocol: Document 04/04/19 09:45 DCW (Rec: 04/04/19 10:29 DCW [id number]) OP-PT Subjective Patient Comments Patient Comments Pt reports she is doing well today, but last week was awful, because she was trying to get out of her shower quickly to answer her phone, and slipped transferring to her chair, hitting and then sliding down her wall. PT notes she is just a little bruised on her right shoulder and elbow, but was able to catch herself before ending up on the floor. PT-OP-G Mobility & Gait Start: 02/14/19 15:09 Freq: Status: Active Protocol: Document 02/14/19 09:45 HH (Rec: 02/14/19 16:44 HH [email or web address]) OP Mobility Evaluation Transfers Sit to Stand Primarily WB on L LE Bed to Chair Transfers requires UE support to push off PT-OP-H Neuro Start: 02/14/19 15:09 Freq: Status: Active Protocol: Document 02/14/19 09:45 HH (Rec: 02/14/19 16:44 HH [email or web address]) Muscle Tone Tone Assessment Right Lower Extremity Flexor Tone Description Severe Hypotonicity Extensor Tone Description Severe Hypotonicity PT-OP-J Posture/Palpation/Skin Start: 02/14/19 15:09 Freq: Status: Active Protocol: Document 02/14/19 09:45 HH (Rec: 02/14/19 16:44 HH [email or web address]) Posture Evaluation Position Standing Evaluation View Anterior Weight Distribution Weight Shifted Left Decreased Wt.Bear on (R) Knee Posture (R) Genu Recurvatum Ankle/Foot Posture (R) Plantarflexed PT-OP-K Range of Motion Start: 02/14/19 15:09 Freq: Status: Active Protocol: Document 02/14/19 09:45 HH (Rec: 02/14/19 16:44 HH [email or web address]) Hip Goniometric Range of Motion Hip Left Passive Hip ROM WFL No Testing Position Supine Flexion w/Knee Flexed 100 Extension 0 Abduction 10 Knee Goniometric Range of Motion Knee Left Knee ROM WFL Yes PT-OP-L Special Tests Start: 02/14/19 15:09 Freq: Status: Active Protocol: Document 02/14/19 09:45 HH (Rec: 02/14/19 16:44 HH [email or web address]) Special Tests Hip Special Tests FADDIR Test Results +VE Comments deep joint pain at anterior and posterior hip pain Scour Test Test Results +ve Comments deep joint pain at anterior and posterior hip pain LUIS FERNANDO Test Results +ve Comments deep and stretching pain at anterior and posterior hip pain PT-OP-M Strength Start: 02/14/19 15:09 Freq: Status: Active Protocol: Document 02/14/19 09:45 HH (Rec: 02/14/19 16:44 HH [email or web address]) Hip Strength Hip Manual Muscle Testing Right Flexion (L2) 1 Trace Extension (S1) 1 Trace Abduction 1 Trace Adduction 1 Trace Left Flexion (L2) 4+ Good+ Extension (S1) 4+ Good+ Abduction 3+ Fair+ Adduction 4+ Good+ Knee Strength Knee Manual Muscle Testing Right Flexion (S2) 0 Zero Extension (L3) 0 Zero Left Flexion (S2) 5 Normal Extension (L3) 5 Normal Ankle/Foot Strength Ankle and Foot Manual Muscle Testing Right Dorsiflexion (L4) 0 Zero Plantarflexion (S1) 0 Zero Inversion 0 Zero Eversion (S1) 0 Zero Left Dorsiflexion (L4) 2- Poor- Plantarflexion (S1) 2- Poor- Inversion 2- Poor- Eversion (S1) 2- Poor- PT-OP-Q Treatments Start: 02/14/19 15:09 Freq: Status: Active Protocol: Document 04/04/19 09:45 DCW (Rec: 04/04/19 10:29 DCW [id number]) Therapeutic Exercises Supine Exercises hip abduction iso Side bilateral Resistance vs PT's hands Reps/Minutes x 20 piriformis stretch Supine Exercise Name manual stretch L knee to opp shoulder Side left Reps/Minutes 3x1 min hip adductor stretch Supine Exercise Name manual stretch of L hip adductors Side left Reps/Minutes 3x1 min SKC Side bilateral Reps/Minutes 3 x 1 min Sidelying Exercises hip extension stretch Side left Reps/Minutes 3x1 min Sitting Exercises weighted ball lifts Sitting Exercise Name weighted ball lifts Resistance 3.3# Reps/Minutes 2x12 Comments [id number] return to neutral from lean Sitting Exercise Name pt positioned into fwd, bkwd, or lateral flexion, returns to neutral iso trunk rotation Side bilateral Resistance PT's hands Reps/Minutes 10 s x8 reps Comments resisted trunk rotation faroese twise Equipment Used 3 lbs ball Comments ball tap on side seated flexion Equipment Used PT resistance Reps/Minutes 10 secs hold x5 iso trunk extension Side bilateral Resistance PT's hands Reps/Minutes 10 s x 8 reps Comments resisted trunk extension Manual Therapy Treatment Soft Tissue Mobilization L Adductor STM Body Location L Adductor Mobilization Type Strain/Counterstrain Sustained Pressure Body Position Hooklying Joint Mobilizations L hip distraction Grade III Body Position Supine Comments lateral distraction /c strap PT-OP-T Assessment and Plan Start: 02/14/19 15:09 Freq: Status: Active Protocol: Document 04/04/19 09:45 DCW (Rec: 04/04/19 10:29 DCW [id number]) Physical Therapy Assessment Goals hip mobility Impairment insufficient L hip mobility Skilled Nursing Goal (LTG) pt will increase her L hip mobility by 15 degrees of ROM grossly to improve functional mobility and gait efficiency LTG Duration 8 weeks Amb Impairment insufficient endurance and strength to amb > 1hour Skilled Nursing Goal (LTG) Pt will be able to amb with crutches in the house daily for an hour to improve quality of life. Possily trials for out of house ambulation LTG Duration 8 weeks self stretch HEP Impairment unable to do self hip stretch at home Air Export Agent Goal (LTG) Pt will be able to perform self stretch at home independently and safely. LTG Duration 8 weeks Assessment Summary Assessment Pt adductors tighter than normal today following her fall last week, but responded well to trewatment Physical Therapy Plan Frequency and Duration Frequency of Treatment 2x/Week Duration of Treatment 8 weeks Plan of Care Start Date 04/04/19 Plan of Care End Date 05/30/19 Next Visit Focus/Plan Next Note Type Treatment Note Next Visit Plan review HEP seated abd and shd strengthening cont hip mob ex
--- NOTE | 2019-04-04 10:30 | PT.OPPOC ---
Current Diagnoses Postpolio syndrome (04/20/19) Provider Visit Care Team Role Provider Type Michelle Ghotra DO Attending Provider Physician Primary Care Provider Specialty: Family Practice Address: [address] [place] [address], [id number] Email: [email or web address] Plan Of Care PT-OP-T Assessment and Plan Start: 02/14/19 15:09 Freq: Status: Active Protocol: Document 04/04/19 09:45 DCW (Rec: 04/04/19 10:29 DCW [id number]) Physical Therapy Assessment Goals hip mobility Impairment insufficient L hip mobility Field Instructor Goal (LTG) pt will increase her L hip mobility by 15 degrees of ROM grossly to improve functional mobility and gait efficiency LTG Duration 8 weeks Amb Impairment insufficient endurance and strength to amb > 1hour Shelter Goal (LTG) Pt will be able to amb with crutches in the house daily for an hour to improve quality of life. Possily trials for out of house ambulation LTG Duration 8 weeks self stretch HEP Impairment unable to do self hip stretch at home Shelter Goal (LTG) Pt will be able to perform self stretch at home independently and safely. LTG Duration 8 weeks Assessment Summary Assessment Pt adductors tighter than normal today following her fall last week, but responded well to trewatment Physical Therapy Plan Frequency and Duration Frequency of Treatment 2x/Week Duration of Treatment 8 weeks Plan of Care Start Date 04/04/19 Plan of Care End Date 05/30/19 Next Visit Focus/Plan Next Note Type Treatment Note Next Visit Plan review HEP seated abd and shd strengthening cont hip mob ex Plan of Care Dates Plan of Care Start Date 04/04/19 Plan of Care End Date 05/30/19 Please Sign and Return: I have reviewed this Plan of Care and certify that the skilled therapy services above are required to meet the patient?s needs. Physician Signature Date Printed Name and Credentials Clinical Instructor Signature Printed Name and Credentials
--- NOTE | 2019-04-20 17:36 | PT.OTN ---
Current Diagnoses Postpolio syndrome (04/20/19) Physical Therapy Treatment Note PT-OP-A Visit Information Start: 02/14/19 15:09 Freq: Status: Active Protocol: Document 04/20/19 13:00 GGD (Rec: 04/20/19 17:36 GGD [email or web address]) Out-Patient Physical Therapy Visit Information Visit Information Visit Type Treatment Note Visit Start Time 13:00 Visit Stop Time 13:45 Total Visit Minutes 45 Visit Number 9 Number of NEUROPHYSIOLOGY TECH Visits 1 PT-OP-B Current Condition Start: 02/14/19 15:09 Freq: Status: Active Protocol: Document 02/14/19 09:45 HH (Rec: 02/14/19 15:32 HH [email or web address]) Current Condition History of Current Condition Onset Date 5 years ago Current Complaints Post polio syndrome, increased LE weakness, decreased activity tolerance History of Current Condition Pt is a 78yo female with post polio syndrome since 5 years ago. She presents to clinic with primary c/o increased LE weakness and decreased L hip mobility recently limited by pain. She also c/o she has difficult time to stretch her hip with theraband/ belt at home especially hip abd and extension in bed which causes her to fall easily. Pt also had an accident 4 years ago that a shelf fell on her L side which dislocated her L hip and broke her lumbar spine . Pt is power w/c bound since then but she does have a L hinged AFO and R hip orthotics to improve gait stability with crutches. she states she is able to stand around 15-20 mins with/without crutches, transfers between surface and amb with crutches for 0.5-1 hour 5 times a week independently at home. She has never amb out of her room due to high fall risks. Pt has fallen multiple times since 4 years ago but did not ahve any significant injuries. Prior Treatments and Tests Received outpatient PT at for UE strengthening in 2018 Treatment Goals Patient/Caregiver Goals 1. To learn and perform self stretches for B hip safely 2. To strengthen her back to tolerate longer standing time and amb distance 3. to be able to amb everyday with crutches for an hour Prior Functional Status Baseline Function- ADL's Modified Independent Baseline Function- Mobility Modified Independent Baseline Function- Gait with crutches (able to walk everyday) Baseline Function- Other Able to stand >1 hour able to amb > 1 hour with crutches able to amb daily with crutches Current Functional Impairments (Reported) Functional Limitations- ADL's mod Independent Functional Limitations- Mobility/Gait unable to amb more than 1 hour with crutches due to fatigue and poor balance Functional Limitations- Other Unable to perform self stretch to increase hip mobility PT-OP-C Subjective Start: 02/14/19 15:09 Freq: Status: Active Protocol: Document 04/20/19 13:00 GGD (Rec: 04/20/19 17:36 GGD [email or web address]) OP-PT Subjective Patient Comments Patient Comments Pt statess she is getting stronger. She does feel tighter due to missing PT. PT-OP-G Mobility & Gait Start: 02/14/19 15:09 Freq: Status: Active Protocol: Document 02/14/19 09:45 HH (Rec: 02/14/19 16:44 HH [email or web address]) OP Mobility Evaluation Transfers Sit to Stand Primarily WB on L LE Bed to Chair Transfers requires UE support to push off PT-OP-H Neuro Start: 02/14/19 15:09 Freq: Status: Active Protocol: Document 02/14/19 09:45 HH (Rec: 02/14/19 16:44 HH [email or web address]) Muscle Tone Tone Assessment Right Lower Extremity Flexor Tone Description Severe Hypotonicity Extensor Tone Description Severe Hypotonicity PT-OP-J Posture/Palpation/Skin Start: 02/14/19 15:09 Freq: Status: Active Protocol: Document 02/14/19 09:45 HH (Rec: 02/14/19 16:44 HH [email or web address]) Posture Evaluation Position Standing Evaluation View Anterior Weight Distribution Weight Shifted Left Decreased Wt.Bear on (R) Knee Posture (R) Genu Recurvatum Ankle/Foot Posture (R) Plantarflexed PT-OP-K Range of Motion Start: 02/14/19 15:09 Freq: Status: Active Protocol: Document 02/14/19 09:45 HH (Rec: 02/14/19 16:44 HH [email or web address]) Hip Goniometric Range of Motion Hip Left Passive Hip ROM WFL No Testing Position Supine Flexion w/Knee Flexed 100 Extension 0 Abduction 10 Knee Goniometric Range of Motion Knee Left Knee ROM WFL Yes PT-OP-L Special Tests Start: 02/14/19 15:09 Freq: Status: Active Protocol: Document 02/14/19 09:45 HH (Rec: 02/14/19 16:44 HH [email or web address]) Special Tests Hip Special Tests FADDIR Test Results +VE Comments deep joint pain at anterior and posterior hip pain Scour Test Test Results +ve Comments deep joint pain at anterior and posterior hip pain LUIS FERNANDO Test Results +ve Comments deep and stretching pain at anterior and posterior hip pain PT-OP-M Strength Start: 02/14/19 15:09 Freq: Status: Active Protocol: Document 02/14/19 09:45 HH (Rec: 02/14/19 16:44 HH [email or web address]) Hip Strength Hip Manual Muscle Testing Right Flexion (L2) 1 Trace Extension (S1) 1 Trace Abduction 1 Trace Adduction 1 Trace Left Flexion (L2) 4+ Good+ Extension (S1) 4+ Good+ Abduction 3+ Fair+ Adduction 4+ Good+ Knee Strength Knee Manual Muscle Testing Right Flexion (S2) 0 Zero Extension (L3) 0 Zero Left Flexion (S2) 5 Normal Extension (L3) 5 Normal Ankle/Foot Strength Ankle and Foot Manual Muscle Testing Right Dorsiflexion (L4) 0 Zero Plantarflexion (S1) 0 Zero Inversion 0 Zero Eversion (S1) 0 Zero Left Dorsiflexion (L4) 2- Poor- Plantarflexion (S1) 2- Poor- Inversion 2- Poor- Eversion (S1) 2- Poor- PT-OP-Q Treatments Start: 02/14/19 15:09 Freq: Status: Active Protocol: Document 04/20/19 13:00 GGD (Rec: 04/20/19 17:36 GGD [email or web address]) Therapeutic Exercises Supine Exercises hip abduction iso Supine Exercise Name hip abduction Side bilateral Resistance vs PT's hands Reps/Minutes x 20 piriformis stretch Supine Exercise Name manual stretch L knee to opp shoulder Side left Reps/Minutes 3x1 min hip adductor stretch Supine Exercise Name manual stretch of L hip adductors Side left Reps/Minutes 3x1 min Comments HEP for self stretch in sitting with belt SKC Side bilateral Reps/Minutes 3 x 1 min Sidelying Exercises hip extension stretch Side left Reps/Minutes 3x1 min Sitting Exercises return to neutral from lean Sitting Exercise Name pt positioned into fwd, bkwd, or lateral flexion, returns to neutral Manual Therapy Treatment Soft Tissue Mobilization L Adductor STM Body Location L Adductor Mobilization Type Strain/Counterstrain Sustained Pressure Body Position Hooklying Joint Mobilizations L hip distraction Grade III Body Position Supine Comments lateral distraction /c strap PT-OP-T Assessment and Plan Start: 02/14/19 15:09 Freq: Status: Active Protocol: Document 04/20/19 13:00 GGD (Rec: 04/20/19 17:36 GGD [email or web address]) Physical Therapy Assessment Assessment Summary Assessment PT improving with strength. Exercises needed modifications due to increase in shoulder pain. Physical Therapy Plan Frequency and Duration Frequency of Treatment 2x/Week Duration of Treatment 8 weeks Plan of Care Start Date 04/04/19 Plan of Care End Date 05/30/19 Next Visit Focus/Plan Next Note Type Treatment Note Next Visit Plan seated abd and shd strengthening cont hip mob ex, standing and gait in // bars
--- NOTE | 2019-05-10 12:16 | PT.OTN ---
Current Diagnoses Postpolio syndrome (04/27/19) Physical Therapy Treatment Note PT-OP-A Visit Information Start: 02/14/19 15:09 Freq: Status: Active Protocol: Document 04/27/19 13:00 HH (Rec: 04/27/19 15:22 HH [email or web address]) Out-Patient Physical Therapy Visit Information Visit Information Visit Type Treatment Note Visit Start Time 13:00 Visit Stop Time 13:45 Total Visit Minutes 45 Visit Number 10 Number of ENVIRONMENTAL FIELD PROFESSIONAL Visits 0 PT-OP-B Current Condition Start: 02/14/19 15:09 Freq: Status: Active Protocol: Document 02/14/19 09:45 HH (Rec: 02/14/19 15:32 HH [email or web address]) Current Condition History of Current Condition Onset Date 5 years ago Current Complaints Post polio syndrome, increased LE weakness, decreased activity tolerance History of Current Condition Pt is a 78yo female with post polio syndrome since 5 years ago. She presents to clinic with primary c/o increased LE weakness and decreased L hip mobility recently limited by pain. She also c/o she has difficult time to stretch her hip with theraband/ belt at home especially hip abd and extension in bed which causes her to fall easily. Pt also had an accident 4 years ago that a shelf fell on her L side which dislocated her L hip and broke her lumbar spine . Pt is power w/c bound since then but she does have a L hinged AFO and R hip orthotics to improve gait stability with crutches. she states she is able to stand around 15-20 mins with/without crutches, transfers between surface and amb with crutches for 0.5-1 hour 5 times a week independently at home. She has never amb out of her room due to high fall risks. Pt has fallen multiple times since 4 years ago but did not ahve any significant injuries. Prior Treatments and Tests Received outpatient PT at for UE strengthening in 2018 Treatment Goals Patient/Caregiver Goals 1. To learn and perform self stretches for B hip safely 2. To strengthen her back to tolerate longer standing time and amb distance 3. to be able to amb everyday with crutches for an hour Prior Functional Status Baseline Function- ADL's Modified Independent Baseline Function- Mobility Modified Independent Baseline Function- Gait with crutches (able to walk everyday) Baseline Function- Other Able to stand >1 hour able to amb > 1 hour with crutches able to amb daily with crutches Current Functional Impairments (Reported) Functional Limitations- ADL's mod Independent Functional Limitations- Mobility/Gait unable to amb more than 1 hour with crutches due to fatigue and poor balance Functional Limitations- Other Unable to perform self stretch to increase hip mobility PT-OP-C Subjective Start: 02/14/19 15:09 Freq: Status: Active Protocol: Document 04/27/19 13:00 HH (Rec: 04/27/19 15:22 HH [email or web address]) OP-PT Subjective Patient Comments Patient Comments Michelle been feeling better and start walking with crutches again. But i still get some soreness on my L shoulder again. PT-OP-G Mobility & Gait Start: 02/14/19 15:09 Freq: Status: Active Protocol: Document 02/14/19 09:45 HH (Rec: 02/14/19 16:44 HH [email or web address]) OP Mobility Evaluation Transfers Sit to Stand Primarily WB on L LE Bed to Chair Transfers requires UE support to push off PT-OP-H Neuro Start: 02/14/19 15:09 Freq: Status: Active Protocol: Document 02/14/19 09:45 HH (Rec: 02/14/19 16:44 HH [email or web address]) Muscle Tone Tone Assessment Right Lower Extremity Flexor Tone Description Severe Hypotonicity Extensor Tone Description Severe Hypotonicity PT-OP-J Posture/Palpation/Skin Start: 02/14/19 15:09 Freq: Status: Active Protocol: Document 02/14/19 09:45 HH (Rec: 02/14/19 16:44 HH [email or web address]) Posture Evaluation Position Standing Evaluation View Anterior Weight Distribution Weight Shifted Left Decreased Wt.Bear on (R) Knee Posture (R) Genu Recurvatum Ankle/Foot Posture (R) Plantarflexed PT-OP-K Range of Motion Start: 02/14/19 15:09 Freq: Status: Active Protocol: Document 02/14/19 09:45 HH (Rec: 02/14/19 16:44 HH [email or web address]) Hip Goniometric Range of Motion Hip Left Passive Hip ROM WFL No Testing Position Supine Flexion w/Knee Flexed 100 Extension 0 Abduction 10 Knee Goniometric Range of Motion Knee Left Knee ROM WFL Yes PT-OP-L Special Tests Start: 02/14/19 15:09 Freq: Status: Active Protocol: Document 02/14/19 09:45 HH (Rec: 02/14/19 16:44 [email or web address]) Special Tests Hip Special Tests FADDIR Test Results +VE Comments deep joint pain at anterior and posterior hip pain Scour Test Test Results +ve Comments deep joint pain at anterior and posterior hip pain LUIS FERNANDO Test Results +ve Comments deep and stretching pain at anterior and posterior hip pain PT-OP-M Strength Start: 02/14/19 15:09 Freq: Status: Active Protocol: Document 02/14/19 09:45 HH (Rec: 02/14/19 16:44 [email or web address]) Hip Strength Hip Manual Muscle Testing Right Flexion (L2) 1 Trace Extension (S1) 1 Trace Abduction 1 Trace Adduction 1 Trace Left Flexion (L2) 4+ Good+ Extension (S1) 4+ Good+ Abduction 3+ Fair+ Adduction 4+ Good+ Knee Strength Knee Manual Muscle Testing Right Flexion (S2) 0 Zero Extension (L3) 0 Zero Left Flexion (S2) 5 Normal Extension (L3) 5 Normal Ankle/Foot Strength Ankle and Foot Manual Muscle Testing Right Dorsiflexion (L4) 0 Zero Plantarflexion (S1) 0 Zero Inversion 0 Zero Eversion (S1) 0 Zero Left Dorsiflexion (L4) 2- Poor- Plantarflexion (S1) 2- Poor- Inversion 2- Poor- Eversion (S1) 2- Poor- PT-OP-Q Treatments Start: 02/14/19 15:09 Freq: Status: Active Protocol: Document 04/27/19 13:00 HH (Rec: 04/27/19 15:22 [email or web address]) Therapeutic Exercises Sitting Exercises seated hip abduction Side bilateral Equipment Used green loop band Reps/Minutes 6 x 3 shoulder press Side bilateral Equipment Used PVC Reps/Minutes 10 x2 Comments cues on neutral spine resisted arm push Side bilateral Equipment Used PVC Reps/Minutes 5 x 3 Comments forward push seated rot Sitting Exercise Name PVC at shd 90 flexion Equipment Used pvc pipe Reps/Minutes 8 x 3 Comments trunk rotation sit up Sitting Exercise Name semi- sit to long sit Side bilateral Equipment Used with pvc Reps/Minutes 5 x 2 self STM with rolling pin Side left Equipment Used rolling pin Reps/Minutes 5 mins Comments on L hip adductors moroccan twise Equipment Used 3 lbs ball Comments ball tap on side iso trunk extension Side bilateral Resistance PT's hands Reps/Minutes 10 s x 8 reps Comments resisted trunk extension Manual Therapy Treatment Joint Mobilizations L hip distraction Grade III Body Position Supine Comments lateral distraction /c strap PT-OP-T Assessment and Plan Start: 02/14/19 15:09 Freq: Status: Active Protocol: Document 04/27/19 13:00 HH (Rec: 04/27/19 15:22 HH [email or web address]) Physical Therapy Assessment Assessment Summary Assessment PT improving with abdominal strength and trunk extensors strength. Reports she does not have back and hip pain recently except prolonged walking with crutches. Pt will most likely be d/c with HEPs in 2 weeks. Physical Therapy Plan Next Visit Focus/Plan Next Note Type Treatment Note Next Visit Plan seated abd and shd strengthening cont abd strengthening ( flexion, rotation) cont hip mob ex, standing and gait in // bars
--- NOTE | 2019-05-10 18:40 | PT.OTN ---
Current Diagnoses Postpolio syndrome (05/10/19) Physical Therapy Treatment Note PT-OP-A Visit Information Start: 02/14/19 15:09 Freq: Status: Active Protocol: Document 05/10/19 16:00 HH (Rec: 05/10/19 18:40 HH [email or web address]) Out-Patient Physical Therapy Visit Information Visit Information Visit Type Treatment Note Visit Start Time 16:00 Visit Stop Time 16:45 Total Visit Minutes 45 Visit Number 11 Number of TRAVEL MANAGER Visits 0 PT-OP-B Current Condition Start: 02/14/19 15:09 Freq: Status: Active Protocol: Document 02/14/19 09:45 HH (Rec: 02/14/19 15:32 HH [email or web address]) Current Condition History of Current Condition Onset Date 5 years ago Current Complaints Post polio syndrome, increased LE weakness, decreased activity tolerance History of Current Condition Pt is a 78yo female with post polio syndrome since 5 years ago. She presents to clinic with primary c/o increased LE weakness and decreased L hip mobility recently limited by pain. She also c/o she has difficult time to stretch her hip with theraband/ belt at home especially hip abd and extension in bed which causes her to fall easily. Pt also had an accident 4 years ago that a shelf fell on her L side which dislocated her L hip and broke her lumbar spine . Pt is power w/c bound since then but she does have a L hinged AFO and R hip orthotics to improve gait stability with crutches. she states she is able to stand around 15-20 mins with/without crutches, transfers between surface and amb with crutches for 0.5-1 hour 5 times a week independently at home. She has never amb out of her room due to high fall risks. Pt has fallen multiple times since 4 years ago but did not ahve any significant injuries. Prior Treatments and Tests Received outpatient PT at for UE strengthening in 2018 Treatment Goals Patient/Caregiver Goals 1. To learn and perform self stretches for B hip safely 2. To strengthen her back to tolerate longer standing time and amb distance 3. to be able to amb everyday with crutches for an hour Prior Functional Status Baseline Function- ADL's Modified Independent Baseline Function- Mobility Modified Independent Baseline Function- Gait with crutches (able to walk everyday) Baseline Function- Other Able to stand >1 hour able to amb > 1 hour with crutches able to amb daily with crutches Current Functional Impairments (Reported) Functional Limitations- ADL's mod Independent Functional Limitations- Mobility/Gait unable to amb more than 1 hour with crutches due to fatigue and poor balance Functional Limitations- Other Unable to perform self stretch to increase hip mobility PT-OP-C Subjective Start: 02/14/19 15:09 Freq: Status: Active Protocol: Document 05/10/19 16:00 HH (Rec: 05/10/19 18:40 HH [email or web address]) OP-PT Subjective Patient Comments Patient Comments My back is doing good but my inner thigh still feel tight very often and i have trouble stretching with butterfly position. PT-OP-G Mobility & Gait Start: 02/14/19 15:09 Freq: Status: Active Protocol: Document 02/14/19 09:45 HH (Rec: 02/14/19 16:44 HH [email or web address]) OP Mobility Evaluation Transfers Sit to Stand Primarily WB on L LE Bed to Chair Transfers requires UE support to push off PT-OP-H Neuro Start: 02/14/19 15:09 Freq: Status: Active Protocol: Document 02/14/19 09:45 HH (Rec: 02/14/19 16:44 HH [email or web address]) Muscle Tone Tone Assessment Right Lower Extremity Flexor Tone Description Severe Hypotonicity Extensor Tone Description Severe Hypotonicity PT-OP-J Posture/Palpation/Skin Start: 02/14/19 15:09 Freq: Status: Active Protocol: Document 02/14/19 09:45 HH (Rec: 02/14/19 16:44 HH [email or web address]) Posture Evaluation Position Standing Evaluation View Anterior Weight Distribution Weight Shifted Left Decreased Wt.Bear on (R) Knee Posture (R) Genu Recurvatum Ankle/Foot Posture (R) Plantarflexed PT-OP-K Range of Motion Start: 02/14/19 15:09 Freq: Status: Active Protocol: Document 02/14/19 09:45 HH (Rec: 02/14/19 16:44 HH [email or web address]) Hip Goniometric Range of Motion Hip Left Passive Hip ROM WFL No Testing Position Supine Flexion w/Knee Flexed 100 Extension 0 Abduction 10 Knee Goniometric Range of Motion Knee Left Knee ROM WFL Yes PT-OP-L Special Tests Start: 02/14/19 15:09 Freq: Status: Active Protocol: Document 02/14/19 09:45 HH (Rec: 02/14/19 16:44 [email or web address]) Special Tests Hip Special Tests FADDIR Test Results +VE Comments deep joint pain at anterior and posterior hip pain Scour Test Test Results +ve Comments deep joint pain at anterior and posterior hip pain LUIS FERNANDO Test Results +ve Comments deep and stretching pain at anterior and posterior hip pain PT-OP-M Strength Start: 02/14/19 15:09 Freq: Status: Active Protocol: Document 02/14/19 09:45 HH (Rec: 02/14/19 16:44 [email or web address]) Hip Strength Hip Manual Muscle Testing Right Flexion (L2) 1 Trace Extension (S1) 1 Trace Abduction 1 Trace Adduction 1 Trace Left Flexion (L2) 4+ Good+ Extension (S1) 4+ Good+ Abduction 3+ Fair+ Adduction 4+ Good+ Knee Strength Knee Manual Muscle Testing Right Flexion (S2) 0 Zero Extension (L3) 0 Zero Left Flexion (S2) 5 Normal Extension (L3) 5 Normal Ankle/Foot Strength Ankle and Foot Manual Muscle Testing Right Dorsiflexion (L4) 0 Zero Plantarflexion (S1) 0 Zero Inversion 0 Zero Eversion (S1) 0 Zero Left Dorsiflexion (L4) 2- Poor- Plantarflexion (S1) 2- Poor- Inversion 2- Poor- Eversion (S1) 2- Poor- PT-OP-Q Treatments Start: 02/14/19 15:09 Freq: Status: Active Protocol: Document 05/10/19 16:00 HH (Rec: 05/10/19 18:40 [email or web address]) Therapeutic Exercises Supine Exercises supine figure 4 stretch Side left Reps/Minutes 5 mins Comments cues on UE support on RLE Sitting Exercises shoulder press Sitting Exercise Name and trunk SB Side bilateral Equipment Used PVC Reps/Minutes 10 x2 Comments cues on neutral spine resisted arm push Side bilateral Equipment Used PVC Reps/Minutes 5 x 3 Comments forward push sit up Sitting Exercise Name semi- sit to long sit Side bilateral Equipment Used with pvc Reps/Minutes 5 x 2 self STM with rolling pin Side left Equipment Used rolling pin Reps/Minutes 5 mins Comments on L hip adductors iso trunk extension Side bilateral Resistance PT's hands Reps/Minutes 10 s x 8 reps Comments resisted trunk extension Manual Therapy Treatment Soft Tissue Mobilization L Adductor STM Body Location L Adductor Mobilization Type Strain/Counterstrain Sustained Pressure Body Position Hooklying Joint Mobilizations L hip distraction Grade IV Body Position Supine Comments lateral distraction /c strap PT-OP-T Assessment and Plan Start: 02/14/19 15:09 Freq: Status: Active Protocol: Document 05/10/19 16:00 HH (Rec: 05/10/19 18:40 HH [email or web address]) Physical Therapy Assessment Assessment Summary Assessment Pt progressed well with her back pain. Introduced her with figure 4 stretch for inner thigh. Pt is currently satisfied of her progress and expect to be d/c next week. Physical Therapy Plan Next Visit Focus/Plan Next Note Type Treatment Note Next Visit Plan abdominal, back strengthening figure 4 stretch
--- NOTE | 2019-05-12 16:29 | PT.OPDS ---
Current Diagnoses Postpolio syndrome (05/12/19) Provider Visit Care Team Role Provider Type Michelle Ghotra DO Attending Provider Physician Primary Care Provider Specialty: Family Practice Address: [address] [place] [address], [id number] Email: [email or web address] Visit Number Visit Number 12 Discharge Summary PT-OP-B Current Condition Start: 02/14/19 15:09 Freq: Status: Active Protocol: Document 02/14/19 09:45 HH (Rec: 02/14/19 15:32 HH [email or web address]) Current Condition History of Current Condition Onset Date 5 years ago Current Complaints Post polio syndrome, increased LE weakness, decreased activity tolerance History of Current Condition Pt is a 78yo female with post polio syndrome since 5 years ago. She presents to clinic with primary c/o increased LE weakness and decreased L hip mobility recently limited by pain. She also c/o she has difficult time to stretch her hip with theraband/ belt at home especially hip abd and extension in bed which causes her to fall easily. Pt also had an accident 4 years ago that a shelf fell on her L side which dislocated her L hip and broke her lumbar spine . Pt is power w/c bound since then but she does have a L hinged AFO and R hip orthotics to improve gait stability with crutches. she states she is able to stand around 15-20 mins with/without crutches, transfers between surface and amb with crutches for 0.5-1 hour 5 times a week independently at home. She has never amb out of her room due to high fall risks. Pt has fallen multiple times since 4 years ago but did not ahve any significant injuries. Prior Treatments and Tests Received outpatient PT at for UE strengthening in 2018 Treatment Goals Patient/Caregiver Goals 1. To learn and perform self stretches for B hip safely 2. To strengthen her back to tolerate longer standing time and amb distance 3. to be able to amb everyday with crutches for an hour Prior Functional Status Baseline Function- ADL's Modified Independent Baseline Function- Mobility Modified Independent Baseline Function- Gait with crutches (able to walk everyday) Baseline Function- Other Able to stand >1 hour able to amb > 1 hour with crutches able to amb daily with crutches Current Functional Impairments (Reported) Functional Limitations- ADL's mod Independent Functional Limitations- Mobility/Gait unable to amb more than 1 hour with crutches due to fatigue and poor balance Functional Limitations- Other Unable to perform self stretch to increase hip mobility PT-OP-C Subjective Start: 02/14/19 15:09 Freq: Status: Active Protocol: Document 05/12/19 15:15 HH (Rec: 05/12/19 16:29 HH [email or web address]) OP-PT Subjective Patient Comments Patient Comments I think im ready to be d/c. PT-OP-G Mobility & Gait Start: 02/14/19 15:09 Freq: Status: Active Protocol: Document 02/14/19 09:45 HH (Rec: 02/14/19 16:44 HH [email or web address]) OP Mobility Evaluation Transfers Sit to Stand Primarily WB on L LE Bed to Chair Transfers requires UE support to push off PT-OP-H Neuro Start: 02/14/19 15:09 Freq: Status: Active Protocol: Document 02/14/19 09:45 HH (Rec: 02/14/19 16:44 HH [email or web address]) Muscle Tone Tone Assessment Right Lower Extremity Flexor Tone Description Severe Hypotonicity Extensor Tone Description Severe Hypotonicity PT-OP-J Posture/Palpation/Skin Start: 02/14/19 15:09 Freq: Status: Active Protocol: Document 02/14/19 09:45 HH (Rec: 02/14/19 16:44 HH [email or web address]) Posture Evaluation Position Standing Evaluation View Anterior Weight Distribution Weight Shifted Left Decreased Wt.Bear on (R) Knee Posture (R) Genu Recurvatum Ankle/Foot Posture (R) Plantarflexed PT-OP-K Range of Motion Start: 02/14/19 15:09 Freq: Status: Active Protocol: Document 02/14/19 09:45 HH (Rec: 02/14/19 16:44 HH [email or web address]) Hip Goniometric Range of Motion Hip Left Passive Hip ROM WFL No Testing Position Supine Flexion w/Knee Flexed 100 Extension 0 Abduction 10 Knee Goniometric Range of Motion Knee Left Knee ROM WFL Yes PT-OP-L Special Tests Start: 02/14/19 15:09 Freq: Status: Active Protocol: Document 02/14/19 09:45 HH (Rec: 02/14/19 16:44 HH [email or web address]) Special Tests Hip Special Tests FADDIR Test Results +VE Comments deep joint pain at anterior and posterior hip pain Scour Test Test Results +ve Comments deep joint pain at anterior and posterior hip pain LUIS FERNANDO Test Results +ve Comments deep and stretching pain at anterior and posterior hip pain PT-OP-M Strength Start: 02/14/19 15:09 Freq: Status: Active Protocol: Document 02/14/19 09:45 HH (Rec: 02/14/19 16:44 [email or web address]) Hip Strength Hip Manual Muscle Testing Right Flexion (L2) 1 Trace Extension (S1) 1 Trace Abduction 1 Trace Adduction 1 Trace Left Flexion (L2) 4+ Good+ Extension (S1) 4+ Good+ Abduction 3+ Fair+ Adduction 4+ Good+ Knee Strength Knee Manual Muscle Testing Right Flexion (S2) 0 Zero Extension (L3) 0 Zero Left Flexion (S2) 5 Normal Extension (L3) 5 Normal Ankle/Foot Strength Ankle and Foot Manual Muscle Testing Right Dorsiflexion (L4) 0 Zero Plantarflexion (S1) 0 Zero Inversion 0 Zero Eversion (S1) 0 Zero Left Dorsiflexion (L4) 2- Poor- Plantarflexion (S1) 2- Poor- Inversion 2- Poor- Eversion (S1) 2- Poor- PT-OP-T Assessment and Plan Start: 02/14/19 15:09 Freq: Status: Active Protocol: Document 05/12/19 15:15 HH (Rec: 05/12/19 16:29 [email or web address]) Physical Therapy Assessment Goals self stretch HEP [employer]inder Goal (LTG) goal met : able to do figure 4 stretch Assessment Summary Assessment Pt progressed well. Denies any back pain and able to perform all HEP. Added new HEPs for UEs ex at d/c today. Physical Therapy Plan Discharge Physical Therapy Discharge Reasons Goals Met
== END 2019-05-19 11:03 | disposition home or self-care (01) ==
LOC: PHYS 15:15
PROVIDERS: PCP Family Medicine; Visit Provider Family Medicine
DX: G14 Postpolio syndrome (principal)
CPT/HCPCS: 97110; 97116; 97140; 97163; 97535

== ENCOUNTER → 2019-05-16 09:42 | Outpatient (CLI) | payer MEDICARE, OTHER, SELFPAY ==
[2019-05-16 11:01] LABS: Alanine Aminotransferase 83 IU/L (9-52); Albumin 4.3 g/dL (3.5-5.0); Albumin Globulin Ratio 1.4 (1.0-2.8); Alkaline Phosphatase 92 U/L (38-126); Aspartate Aminotransferase 84 IU/L (14-36); Bilirubin Total 0.6 mg/dL (0.2-1.3); Blood Urea Nitrogen 9 mg/dL (7-17); Calcium 9.8 mg/dL (8.4-10.2); Carbon Dioxide 27 mmol/L (22-32); Chloride 101 mmol/L (98-107); Cholesterol 247 mg/dL (140-199); Estimated Glomerular Filt Rate > 60.0 mL/min (>60); Glucose 115 mg/dL (80-110); HDL Cholesterol 52 mg/dL (40-60); HEMOLYSIS < 15 (0-50); LDL Cholesterol Calculated 159 mg/dL (<100); Sodium 139 mmol/L (137-145); Total Protein 7.3 g/dL (6.3-8.2); Triglycerides 178 mg/dL (35-150)
[2019-05-16 11:38] LABS: Free T3, Triiodothyronine Free 3.58 pg/mL (2.77-5.27); Free T4, Direct Thyroxine 1.65 ng/dL (0.78-2.19)
[2019-05-16 11:39] LABS: Vitamin D 25 Hydroxy (D3) 20.2 ng/mL (30.0-100.0)
[2019-05-16 11:51] LABS: Thyroid Stimulating Hormone 1.67 uIU/mL (0.47-4.68)
== END ==
PROVIDERS: PCP Family Medicine; Visit Provider Family Medicine
DX: E03.9 Hypothyroidism, unspecified (principal); E21.3 Hyperparathyroidism, unspecified; E78.5 Hyperlipidemia, unspecified; M81.0 Age-related osteoporosis without current pathological fracture; R94.5 Abnormal results of liver function studies
CPT/HCPCS: 36415; 80053; 80061; 82306; 84439; 84443; 84481

== ENCOUNTER → 2019-06-14 14:58 | Outpatient (CLI) | payer MEDICARE, OTHER, SELFPAY ==
[2019-06-16 18:35] LABS: Fecal Immunochemical Test NOT DETECTED (NOT DETECTED)
== END ==
PROVIDERS: PCP Family Medicine; Visit Provider Family Medicine
DX: Z00.00 Encounter for general adult medical examination without abnormal findings (principal)
CPT/HCPCS: 82274

== ENCOUNTER → 2019-09-29 07:43 | Outpatient (CLI) | payer MEDICARE, OTHER, SELFPAY ==
--- NOTE | 2019-09-29 | DI.ECHO.S_ITS ---
[facility] +---------+ [facility] +---------+ : : [address] : : : : [place] : : : : [id number] : : : : Phone: [phone]---------+ Echocardiogram Report + + :Name: RENETTA SMITH Study Date: 09/29/2019 Height: 64 in : :[facility] Exam Location: IS Weight: 160 lb : : Gender: Female BSA: 1.8 m2 : :: 1940 Age: 79 yrs BP: 142/60 mmHg: :Reason For Study: AI : : Performed By: Alex Brambila : :Referring: DELL WISEMAN : + + Interpretation Summary The left ventricle is normal in size. Left ventricular systolic function is normal without focal wall motion abnormalities. The ejection fraction is estimated to be 55-60%. There has been no significant change since the previous study. Diastolic parameters suggest a relaxation abnormality of the left ventricle, consistent with probable normal filling pressures. The right ventricle is normal in size and function. The right ventricular systolic pressure is estimated to be at least 23 mmHg based on an estimated right atrial pressure of 3 mm Hg. The left atrium is mildly dilated. Right atrial size is normal. There is no significant valvular heart disease. Procedure: A two-dimensional transthoracic echocardiogram with color flow and Doppler was performed. The study quality was technically adequate. Comparison is made with the echocardiogram of 08/23/15. The patient was in normal sinus rhythm during the exam. The patient was bradycardic with a heart rate of 48-54 beats per minute. Left Ventricle: The left ventricle is normal in size. There is normal left ventricular wall thickness. Left ventricular systolic function is normal without focal wall motion abnormalities. The ejection fraction is estimated to be 55-60%. There has been no significant change since the previous study. Diastolic parameters suggest a relaxation abnormality of the left ventricle, consistent with probable normal filling pressures. Right Ventricle: The right ventricle is normal in size and function. Atria: The left atrium is mildly dilated. Right atrial size is normal. The interatrial septum is intact with no evidence for an atrial septal defect. Mitral Valve: The mitral valve is normal in structure and function. There is mild mitral valve prolapse. There is trace mitral regurgitation. Aortic Valve: The aortic valve is trileaflet. The aortic valve opens well. There is trace aortic regurgitation. Tricuspid Valve: The tricuspid valve is normal in structure and function. There is trace tricuspid regurgitation. The right ventricular systolic pressure is estimated to be at least 23 mmHg based on an estimated right atrial pressure of 3 mm Hg. Pulmonic Valve: The pulmonic valve is normal in structure and function. There is trace pulmonic regurgitation. There is no significant valvular heart disease. Great Vessels: The aortic root is normal size. The dimensions of the ascending aorta are normal. The pulmonary artery is normal size. The IVC is of normal diameter and collapses greater than 50% with a sniff. This suggests a low right atrial pressure of 3 mm Hg. Pericardium/ Pleura There is no pericardial effusion. There is no pleural effusion. MMode/2D Measurements & Calculations LVIDd: 5.1 cm LVOT diam: 2.2 cm LVIDs: 3.1 cm Ao root diam: 3.0 cm FS: 38.6 % Aortic Jxn: 2.5 cm EPSS: 0.51 cm asc Aorta Diam: 3.1 cm IVSd: 0.91 cm LVPWd: 0.93 cm LV bone. diameter/BSA (cm/m^2): 2.8 LV sys. diameter/BSA (cm/m^2): 1.7 LA dimension: 4.1 cm RA long axis: 4.9 cm LA A2 area: 19.7 cm2 RA area: 14.9 cm2 LA A4 area: 21.4 cm2 RA vol: 38.7 ml LA length (vol): 5.6 cm RA : 21.8 ml/m2 LA vol: 63.8 ml IVC diam: 1.5 cm LA vol index: 35.9 ml/m2 Doppler Measurements & Calculations Ao V2 max: 109.9 cm/sec LVOT Max Johnny: 79.5 cm/sec Ao V2 mean: 78.3 cm/sec LV V1 max P.5 mmHg Ao max P.8 mmHg LV V1 VTI: 20.9 cm Ao mean P.7 mmHg MAGDA(I,D): 2.7 cm2 Ao V2 VTI: 28.4 cm MAGDA(V,D): 2.7 cm2 sev ratio: 0.74 MAGDA indexed to BSA (cm^2/m^2): 1.5 MV E max johnny: 64.3 cm/sec TR max johnny: 226.0 cm/sec MV A max johnny: 77.8 cm/sec TR max P.4 mmHg MV E/A: 0.83 PA V2 max: 79.1 cm/sec Med Peak E' Johnny: 3.6 cm/sec PA V2 mean: 57.3 cm/sec E/E' med: 17.8 PA mean P.4 mmHg Lat Peak E' Johnny: 6.8 cm/sec PA pr(Accel): 31.6 mmHg E/E' lat: 9.4 PA Accel Time: 0.10 sec E/e' average: 13.6 MV dec time: 0.22 sec SV(LVOT): 77.6 ml Reading Physician:05:30 PM
[2019-09-29 10:11] LABS: Vitamin D 25 Hydroxy (D3) 29.4 ng/mL (30.0-100.0)
[2019-09-29 10:19] LABS: Alanine Aminotransferase 68 IU/L (<35); Albumin 4.2 g/dL (3.5-5.0); Albumin Globulin Ratio 1.7 (1.0-2.8); Alkaline Phosphatase 83 U/L (38-126); Aspartate Aminotransferase 56 IU/L (14-36); BUN Creatinine Ratio 21.4 (6-22); Bilirubin Total 0.5 mg/dL (0.2-1.3); Blood Urea Nitrogen 15 mg/dL (7-17); Calcium 10.1 mg/dL (8.4-10.2); Carbon Dioxide 29 mmol/L (22-32); Chloride 102 mmol/L (98-107); Cholesterol 260 mg/dL (140-199); Estimated Glomerular Filt Rate > 60.0 mL/min (>60); Globulin 2.5 g/dL (1.7-4.1); Glucose 103 mg/dL (80-110); HDL Cholesterol 62 mg/dL (40-60); HEMOLYSIS < 15 (0-50); LDL Cholesterol Calculated 166 mg/dL (<100); Potassium 4.1 mmol/L (3.4-5.1); Sodium 138 mmol/L (137-145); Total Protein 6.7 g/dL (6.3-8.2); Triglycerides 159 mg/dL (35-150)
== END ==
PROVIDERS: PCP Family Medicine; Visit Provider Internal Medicine Cardiovascular Disease
DX: I34.1 Nonrheumatic mitral (valve) prolapse (principal); E78.5 Hyperlipidemia, unspecified; E83.52 Hypercalcemia; M81.0 Age-related osteoporosis without current pathological fracture; R94.5 Abnormal results of liver function studies
CPT/HCPCS: 36415; 80053; 80061; 82306; 93306

== ENCOUNTER → 2019-10-21 10:46 | Outpatient (CLI) | payer MEDICARE, OTHER, SELFPAY ==
--- NOTE | 2019-10-21 10:48 | DI.MRI.S_ITS ---
PROCEDURE: MR SHOULDER LT WO CON INDICATIONS: possible rotator cuff tear TECHNIQUE: Noncontrast oblique coronal T2 fast spin echo with fat saturation, oblique sagittal T1 spin echo and T2 fast spin echo with fat saturation, axial T1 spin echo and T2 fast spin echo with fat saturation through the shoulder. COMPARISON: None. FINDINGS: Image quality: Excellent. Rotator cuff: Full-thickness tear of the supraspinatus tendon measuring approximately 1.7 cm in AP dimension as seen on sagittal image 14/10. Infraspinatus tendinopathy with interstitial tearing and thickening and low-grade partial-thickness articular sided tear. The teres minor tendon appears intact. Mild subscapularis tendinopathy and thickening. Atrophy of the supraspinatus infraspinatus and subscapularis muscles, with diffuse fatty infiltration. Bones and bursae: No bone marrow contusions or fractures. Moderate acromioclavicular joint degeneration. Glenohumeral degenerative joint disease also noted Acromion demonstrates conventional anatomy, without an os acromiale. Moderate to large joint effusion noted Capsule and soft tissues: Marked blunting and truncation of the superior labrum with intrasubstance signal change although technically indeterminate. Theoretically, this could be age-related/chronic. The remaining labrum grossly intact without intrasubstance low signal intensity. Long head of the biceps tendon is intact although demonstrates intrasubstance T2 hyperintensity in keeping with tendinopathy. The rotator interval appears normal, without fibrosis. Coracohumeral ligament intact. IMPRESSION: Full-thickness tear of the supraspinatus tendon. Infraspinatus tendinopathy with interstitial tearing and low-grade partial-thickness articular sided tear. Mild subscapularis tendinopathy Diffuse atrophy of the rotator cuff musculature as above Moderate to large joint effusion Acromioclavicular and glenohumeral degenerative joint disease Superior labral degenerative tear versus advanced degeneration, probably chronic/age-related. Long head biceps tendinopathy Dictated by: Florentino Wise M.D. on 10/23/2019 at 10:05 Approved by: Florentino Wise M.D. on 10/23/2019 at 10:12
== END ==
PROVIDERS: PCP Family Medicine; Visit Provider Family Medicine
DX: M19.012 Primary osteoarthritis, left shoulder (principal); M75.122 Complete rotator cuff tear or rupture of left shoulder, not specified as traumatic; S46.912A Strain of unspecified muscle, fascia and tendon at shoulder and upper arm level, left arm, initial encounter; M25.412 Effusion, left shoulder
CPT/HCPCS: 73221

== ENCOUNTER 2019-12-06 16:45 | Outpatient (RCR) | payer MEDICARE, OTHER, SELFPAY ==
--- NOTE | 2019-10-04 16:57 | PT.OIE ---
Current Diagnoses Pain in unspecified shoulder (10/04/19) Past Medical History (Last Updated 09/03/19 @ 11:45 by Michelle Ghotra DO) Abnormal LFTs (Chronic) Abnormal liver function tests (07/04/14) Acquired hypothyroidism (Chronic) Atrial fibrillation (Chronic ~2012) Cataract (Chronic ~2013) Chickenpox (Resolved ~1947) Foot fracture, right (Resolved ~2014) Fractures (Resolved) GERD (gastroesophageal reflux disease) (Chronic ~1978) Hypercalcemia (07/04/14) Hypercalcemia (Chronic ~2013) Hyperlipidemia (07/04/14) Hyperparathyroidism (10/03/14) Hyperparathyroidism, primary (Acute) Hyperthyroidism (Chronic ~1981) Hypothyroidism (Chronic) Measles (Resolved) Mumps (Resolved ~1970) Osteoarthritis (Chronic ~1974) Osteoporosis (04/05/15) Osteoporosis (Chronic ~2008) Paraplegia (Chronic) Parathyroid adenoma (05/07/17) Polio (Chronic ~1951) Post-polio syndrome (Chronic) Primary osteoarthritis, left shoulder (Acute) Scoliosis (Chronic ~1952) Shoulder pain (Chronic ~2013) Sleep apnea (Chronic ~2000) Urinary incontinence (Chronic ~2008) Vision abnormalities (Chronic) Past Surgical History (Last Updated 04/20/18 @ 09:42 by Sammi Cuellar) Anesthesia (Inactive) History of lumbar sympathectomy (Resolved) History of tonsillectomy (~1951) Parathyroid adenoma (Resolved ~2016) Status post hammer toe correction (~1981) Visit Care Team Role Provider Type Michelle Ghotra DO Attending Provider Physician Primary Care Provider Specialty: [facility] Address: [address] [place] [address], [address], [facility] Email: [email or web address] Physical Therapy Initial Evaluation PT-OP-A Visit Information Start: 10/04/19 12:46 Freq: Status: Active Protocol: Document 10/04/19 13:00 (Rec: 10/04/19 16:57 [email or web address]) Out-Patient Physical Therapy Visit Information Visit Information Visit Type Initial Evaluation Visit Start Time 13:00 Visit Stop Time 13:40 Total Visit Minutes 40 Visit Number 10/16 Number of SHOP REPAIRER Visits 0 Evaluation Information Evaluation Date 10/04/19 Precautions Precautions Post polio syndrome minimal to moderate intensity for strengthening avoid creating exessive soreness and fatigue high fall risks PT-OP-B Current Condition Start: 10/04/19 12:46 Freq: Status: Active Protocol: Document 10/04/19 13:00 HH (Rec: 10/04/19 16:57 HH [email or web address]) Current Condition History of Current Condition Onset Date 3 months ago Current Complaints L shoulder pain, difficulty holding a tray and overhead activities History of Current Condition Pt is a 78yo left hand dominant female with post polio syndrome. She presents to clinic with primary c/o new onset of L shoulder pain >6/ 10 and decreased mobility, along with intermittent tingling and numbness sensation on L arm and hand. She described her pain as sharp and achy at superior aspect of the shoulder with clicking/ popping sensation during mobility. She currently has difficulty hold objects like a tray with food up and also overhead/reaching activities such as poonam/doff clothes. She usually sleep on her side which significant aggravates her tingling and numbness sensation to her L arm. She denies any noticeable neck pain but always feel tight with her L shoulder. Pt had PT before for L hip , B LE weakness and LBP and it was successful, but she currently has difficulty to perform seated passive hip abduction stretch. She is still doing home exercises everyday which includes shoulder press and scap row. Prior Treatments and Tests did not have imaging done on c /s , L shoulder Developmental History Developmental History Postpolio syndrome Treatment Goals Patient/Caregiver Goals 1. to be able to reach overhead/ reach without any discomfort 2. To sleep on her side without neurological symptoms. Prior Functional Status Baseline Function- ADL's Independent Baseline Function- Mobility Independent Baseline Function- Gait Pt is power w/c bound. She is able amb with crutches and L AFO and R HAFO Current Functional Impairments (Reported) Functional Limitations- ADL's increased time taken/ use support to hold obejcts that is above her shoulder level increased use of her R hand for functional acitvities d/t L shoulder pain Personal Factors Other Personal Factors That May Effect Post polio syndrome Therapy/Recovery osteopenia PT-OP-C Subjective Start: 10/04/19 12:46 Freq: Status: Active Protocol: Document 10/04/19 13:00 HH (Rec: 10/04/19 16:57 [email or web address]) OP-PT Subjective Patient Comments Patient Comments I want to fix this L shoulder Patient Questionnaires Quick Dash- Upper Extremity Quick Dash UE Score 29.54 Quick Dash UE Impairment 20 to 39% Impaired (Score 20- 39) OP-PT Pain Assessment Location Left Shoulder Pain Location Details superior (deltoid ) region Intensity 6 Scale Used Numeric (1 - 10) Description Aching,Dull,Pinching,Sharp Frequency Frequent Pain Aggravating Factors ADL's,Activity,Exercise Pain Alleviating Factors Inactivity PT-OP-E Functional Tests Start: 10/04/19 12:46 Freq: Status: Active Protocol: Document 10/04/19 13:00 (Rec: 10/04/19 16:57 [email or web address]) Functional Tests Apley's Scratch Test Action 2- Left R ear Action 2- Right L inferior scap pole Action 3- Left T8 with significant pain Action 3- Right T8 PT-OP-J Posture/Palpation/Skin Start: 10/04/19 12:46 Freq: Status: Active Protocol: Document 10/04/19 13:00 (Rec: 10/04/19 13:47 [email or web address]) Posture Evaluation Position Sitting Evaluation View Anterior Head/C-Spine Posture Rotated Left,Side Bent Left T-Spine Posture Increased Kyphosis L-Spine Posture Increased Lordosis Shoulder Posture (L) Rounded,(R) Rounded Palpation Assessment Location R trap Palpation Location R trap Palpation Findings Muscle Guarding,Tenderness, Trigger Point Palpation Details reports of increased tingling and numbness sensation to L arm and hand PT-OP-K Range of Motion Start: 10/04/19 12:46 Freq: Status: Active Protocol: Document 10/04/19 13:00 (Rec: 10/04/19 13:47 [email or web address]) Cervical Spine Range of Motion Cervical Spine Active Percentage Testing Position Sitting Flexion 50 Extension 30 Rotation Left 60 Rotation Right 50 Lateral Flexion Left 30 Lateral Flexion Right 20 ROM Limitations Pain Comments Report of pain during end range ext, R rotation, R SB Increased numbness and tingling sensation to L arm and hand with overpressure of ext, R rotation, R SB Shoulder Goniometric Range of Motion Shoulder Right Active Shoulder ROM WFL Yes Testing Position Sitting Flexion 160 Extension 50 Abduction 155 External Rotation at 90 degrees 80 Abduction Internal Rotation 80 Left Active Shoulder ROM WFL Yes Testing Position Sitting Flexion 140 Extension 50 Abduction 133 External Rotation at 90 degrees 60 Abduction Internal Rotation 70 Shoulder ROM Limitations Shoulder ROM Limitations Soft Tissue Tightness,Pain Comments Painful arc >100 flexion L side pain at end range IR and ER on L side. PT-OP-L Special Tests Start: 10/04/19 12:46 Freq: Status: Active Protocol: Document 10/04/19 13:00 (Rec: 10/04/19 13:47 [email or web address]) Special Tests Cervical Spine Special Tests adson test Test Results +VE L Comments with R rot and R SB Spurling's Test Test Results -ve Foraminal Compression Test Results +ve Comments Increased numbness and tingling sensation to L arm and hand Shoulder Special Tests IR/Horizontal ADD Impingement Test Results +VE L Belly Press Test Results -ve L Empty Can Test Results +VE L Drop Arm Rotator Cuff Test Results -VE L Comments Able to hold position but report pain >90 degrees elevation AC Joint Compression Test Results +VE L PT-OP-M Strength Start: 10/04/19 12:46 Freq: Status: Active Protocol: Document 10/04/19 13:00 (Rec: 10/04/19 16:57 [email or web address]) Shoulder Strength Shoulder Manual Muscle Testing Right Flexion 4+ Good+ Extension 4+ Good+ Abduction (C5) 4+ Good+ Adduction 4+ Good+ External Rotation 4+ Good+ Internal Rotation 4+ Good+ Left Flexion 3+ Fair+ Extension 4- Good- Abduction (C5) 3+ Fair+ Adduction 4- Good- External Rotation 3+ Fair+ Internal Rotation 3+ Fair+ Reason Not Measured Pain Comments breaks easily with MMT d/t significant pain. PT-OP-Q Treatments Start: 10/04/19 12:46 Freq: Status: Active Protocol: Document 10/04/19 13:00 (Rec: 10/04/19 16:57 [email or web address]) Self-Care/Home Management Treatment Education Patient Education Body Mechanics,Home Exercise Program,Joint Protection,Pain Management,Posture Other Education Education on overuse RTC injury and TOS and RTC tear pathology; POC PT-OP-T Assessment and Plan Start: 10/04/19 12:46 Freq: Status: Active Protocol: Document 10/04/19 13:00 (Rec: 10/04/19 16:57 HH [email or web address]) Physical Therapy Assessment Rehab Potential Rehabilitation Potential Good Evaluation Complexity Number of Personal Factors/Comorbidities 3 or More Number of Body Systems Impaired 3 Clinical Presentation at Evaluation Stable Impairments Impairments Activity Tolerance,Functional Activities,Functional Mobility ,Pain,Posture,ROM,Sensation, Soft Tissue Mobility,Strength, Transfers Other Concerns Fall Risk high Barriers to Rehabilitation Post polio syndrome minimal to moderate intensity for strengthening avoid creating exessive soreness and fatigue high fall risks Goals neurological symptoms Impairment Pt has tingling and numbness sensation to her L UE Retirement Goal (LTG) Pt will not have any tingling and numbness sensation down to her L arm and hand to improve her quality of sleep. LTG Duration 5 weeks Strength Impairment L shoulder grossly 3+ to 4-/5 on MMT Short Term Goal (STG) Pt will reach 4 - /5 for gross shoulder strength to improve functional strength STG Duration 5 weeks Retirement Goal (LTG) Pt will reach 4 to 4+/5 for gross shoulder strength to improve functional strength in order to hold on a tray food without any discomfort. LTG Duration 10 weeks ROM Impairment Pt has gross 20 degrees loss of AROM of all shoulder ROM. Short Term Goal (STG) Pt will regain 10 degrees for all ROM in different anatomical planes to improve mobility functinoal activties such as poonam/doff clothes STG Duration 5 weeks Retirement Goal (LTG) Pt will regain 20 degrees for all ROM in different anatomical planes to improve mobility functinoal activties such as poonam/doff clothes LTG Duration 10 weeks Quickdash Impairment pt scores 29.5 on quick dash ( 20-39% impairment) Retirement Goal (LTG) Pt will score <19 (1-19% impairment) on quickdash to improve her quality of life LTG Duration 10 weeks Assessment Summary Assessment Pt is a mod complexity d/t her post polio syndrome and extensive PMH which could be barriers to rehab. Pt's current c/o new onset of L shoulder pain, along with neurological symptoms that limits her functional activities such as reaching/ overhead activities. Upon assessment, pt has noticeable ROM loss for approx 20 degrees and decreased strength (3+ to 4-/5) for all anatomical planes compared to R shoulder. Pt was positive for empty can , back scratch, AC compression , painful arc (>100 degree elevation) which indicate possible partial RTC tear/ RTC Tendonopathy. Her neurological symptoms ( tingling and numbness) to her L arm and hand were reproduced with L trap stretch/ R c/s rot / R c/s SB and Adson test which indicates possible thoracic outlet syndrome. Dis with pt to see her PCP today to request for MRI screen to rule out RTC tear.Pt will benefit from manual therapy for muscle relaxation of L trap/ levator/ scalenes, ROM for L shoulder and T/S and scap stability and strengthening to improve her functional mobility and strength. Physical Therapy Plan Frequency and Duration Frequency of Treatment 2x/Week Duration of Treatment 10 weeks Plan of Care Start Date 10/04/19 Plan of Care End Date 12/18/19 Therapeutic Interventions Therapeutic Interventions Home Exercise Program,Joint Mobilizations,Manual Therapy, Neuromuscular Re-education, Patient/Caregiver Education, Self-Care/Home Management,Soft Tissue Mobilization,Taping, Therapeutic Activities, Therapeutic Exercises Modalities Cold Pack/Ice Massage,Electric Stimulation,Hot Packs, Infrared Therapy,Paraffin Bath ,Ultrasound Next Visit Focus/Plan Next Note Type Treatment Note Next Visit Plan check UTTT begin manual therapy on muscle relaxation of L trap, levator SCM, scalenes gentle cervical ROM, with traction if needed HEP for neck stretch, nerve glide start PROM/AAROM for L shoulder.
--- NOTE | 2019-10-06 16:12 | PT.OTN ---
Current Diagnoses Pain in unspecified shoulder (10/06/19) Physical Therapy Treatment Note PT-OP-A Visit Information Start: 10/04/19 12:46 Freq: Status: Active Protocol: Document 10/06/19 13:03 (Rec: 10/06/19 16:12 [id number]) Out-Patient Physical Therapy Visit Information Visit Information Visit Type Treatment Note Visit Start Time 13:03 Visit Stop Time 13:45 Total Visit Minutes 42 Visit Number 42 Number of CORE ANALYST Visits 0 PT-OP-B Current Condition Start: 10/04/19 12:46 Freq: Status: Active Protocol: Document 10/04/19 13:00 HH (Rec: 10/04/19 16:57 [email or web address]) Current Condition History of Current Condition Onset Date 3 months ago Current Complaints L shoulder pain, difficulty holding a tray and overhead activities History of Current Condition Pt is a 78yo left hand dominant female with post polio syndrome. She presents to clinic with primary c/o new onset of L shoulder pain >6/ 10 and decreased mobility, along with intermittent tingling and numbness sensation on L arm and hand. She described her pain as sharp and achy at superior aspect of the shoulder with clicking/ popping sensation during mobility. She currently has difficulty hold objects like a tray with food up and also overhead/reaching activities such as poonam/doff clothes. She usually sleep on her side which significant aggravates her tingling and numbness sensation to her L arm. She denies any noticeable neck pain but always feel tight with her L shoulder. Pt had PT before for L hip , B LE weakness and LBP and it was successful, but she currently has difficulty to perform seated passive hip abduction stretch. She is still doing home exercises everyday which includes shoulder press and scap row. Prior Treatments and Tests did not have imaging done on c /s , L shoulder Developmental History Developmental History Postpolio syndrome Treatment Goals Patient/Caregiver Goals 1. to be able to reach overhead/ reach without any discomfort 2. To sleep on her side without neurological symptoms. Prior Functional Status Baseline Function- ADL's Independent Baseline Function- Mobility Independent Baseline Function- Gait Pt is power w/c bound. She is able amb with crutches and L AFO and R HAFO Current Functional Impairments (Reported) Functional Limitations- ADL's increased time taken/ use support to hold obejcts that is above her shoulder level increased use of her R hand for functional acitvities d/t L shoulder pain Personal Factors Other Personal Factors That May Effect Post polio syndrome Therapy/Recovery osteopenia PT-OP-C Subjective Start: 10/04/19 12:46 Freq: Status: Active Protocol: Document 10/06/19 13:03 HH (Rec: 10/06/19 16:12 [id number]) OP-PT Subjective Patient Comments Patient Comments My shoulder got sore after assessment. PT-OP-E Functional Tests Start: 10/04/19 12:46 Freq: Status: Active Protocol: Document 10/04/19 13:00 HH (Rec: 10/04/19 16:57 [email or web address]) Functional Tests Apley's Scratch Test Action 2- Left R ear Action 2- Right L inferior scap pole Action 3- Left T8 with significant pain Action 3- Right T8 PT-OP-J Posture/Palpation/Skin Start: 10/04/19 12:46 Freq: Status: Active Protocol: Document 10/04/19 13:00 (Rec: 10/04/19 13:47 [email or web address]) Posture Evaluation Position Sitting Evaluation View Anterior Head/C-Spine Posture Rotated Left,Side Bent Left T-Spine Posture Increased Kyphosis L-Spine Posture Increased Lordosis Shoulder Posture (L) Rounded,(R) Rounded Palpation Assessment Location R trap Palpation Location R trap Palpation Findings Muscle Guarding,Tenderness, Trigger Point Palpation Details reports of increased tingling and numbness sensation to L arm and hand PT-OP-K Range of Motion Start: 10/04/19 12:46 Freq: Status: Active Protocol: Document 10/04/19 13:00 (Rec: 10/04/19 13:47 [email or web address]) Cervical Spine Range of Motion Cervical Spine Active Percentage Testing Position Sitting Flexion 50 Extension 30 Rotation Left 60 Rotation Right 50 Lateral Flexion Left 30 Lateral Flexion Right 20 ROM Limitations Pain Comments Report of pain during end range ext, R rotation, R SB Increased numbness and tingling sensation to L arm and hand with overpressure of ext, R rotation, R SB Shoulder Goniometric Range of Motion Shoulder Right Active Shoulder ROM WFL Yes Testing Position Sitting Flexion 160 Extension 50 Abduction 155 External Rotation at 90 degrees 80 Abduction Internal Rotation 80 Left Active Shoulder ROM WFL Yes Testing Position Sitting Flexion 140 Extension 50 Abduction 133 External Rotation at 90 degrees 60 Abduction Internal Rotation 70 Shoulder ROM Limitations Shoulder ROM Limitations Soft Tissue Tightness,Pain Comments Painful arc >100 flexion L side pain at end range IR and ER on L side. PT-OP-L Special Tests Start: 10/04/19 12:46 Freq: Status: Active Protocol: Document 10/04/19 13:00 (Rec: 10/04/19 13:47 [email or web address]) Special Tests Cervical Spine Special Tests adson test Test Results +VE L Comments with R rot and R SB Spurling's Test Test Results -ve Foraminal Compression Test Results +ve Comments Increased numbness and tingling sensation to L arm and hand Shoulder Special Tests IR/Horizontal ADD Impingement Test Results +VE L Belly Press Test Results -ve L Empty Can Test Results +VE L Drop Arm Rotator Cuff Test Results -VE L Comments Able to hold position but report pain >90 degrees elevation AC Joint Compression Test Results +VE L PT-OP-M Strength Start: 10/04/19 12:46 Freq: Status: Active Protocol: Document 10/04/19 13:00 (Rec: 10/04/19 16:57 [email or web address]) Shoulder Strength Shoulder Manual Muscle Testing Right Flexion 4+ Good+ Extension 4+ Good+ Abduction (C5) 4+ Good+ Adduction 4+ Good+ External Rotation 4+ Good+ Internal Rotation 4+ Good+ Left Flexion 3+ Fair+ Extension 4- Good- Abduction (C5) 3+ Fair+ Adduction 4- Good- External Rotation 3+ Fair+ Internal Rotation 3+ Fair+ Reason Not Measured Pain Comments breaks easily with MMT d/t significant pain. PT-OP-Q Treatments Start: 10/04/19 12:46 Freq: Status: Active Protocol: Document 10/06/19 13:03 (Rec: 10/06/19 16:12 [email or web address]) Therapeutic Exercises Sitting Exercises seated neck stretches Sitting Exercise Name R cervical ROT, R SB Side left Reps/Minutes 10 secs hold x3 Manual Therapy Treatment Soft Tissue Mobilization L trap and levator Mobilization Type Sustained Pressure,Trigger Point Release Intensity/Depth Moderate Body Position Sitting L infraspinatus Mobilization Type Sustained Pressure,Trigger Point Release Intensity/Depth Moderate Body Position Sidelying Joint Mobilizations GH Direction posterior glide Grade II Body Position Supine Comments with ER and IR passively Manual Traction Cervical Body Position Supine Reps/Duration 10 secs hold x 5 Comments f/b R SB and R rotation Nerve Glides median Nerve median on L Body Position Supine Reps/Duration 4 mins Comments with R c/s SB, R c/s rot for HEP as well PT-OP-T Assessment and Plan Start: 10/04/19 12:46 Freq: Status: Active Protocol: Document 10/06/19 13:03 (Rec: 10/06/19 16:12 [id number]) Physical Therapy Assessment Goals neurological symptoms Impairment Pt has tingling and numbness sensation to her L UE Rn Picu Goal (LTG) Pt will not have any tingling and numbness sensation down to her L arm and hand to improve her quality of sleep. LTG Duration 5 weeks Strength Impairment L shoulder grossly 3+ to 4-/5 on MMT Short Term Goal (STG) Pt will reach 4 - /5 for gross shoulder strength to improve functional strength STG Duration 5 weeks Alf Goal (LTG) Pt will reach 4 to 4+/5 for gross shoulder strength to improve functional strength in order to hold on a tray food without any discomfort. LTG Duration 10 weeks ROM Impairment Pt has gross 20 degrees loss of AROM of all shoulder ROM. Short Term Goal (STG) Pt will regain 10 degrees for all ROM in different anatomical planes to improve mobility functinoal activties such as poonam/doff clothes STG Duration 5 weeks Alf Goal (LTG) Pt will regain 20 degrees for all ROM in different anatomical planes to improve mobility functinoal activties such as poonam/doff clothes LTG Duration 10 weeks Quickdash Impairment pt scores 29.5 on quick dash ( 20-39% impairment) Alf Goal (LTG) Pt will score <19 (1-19% impairment) on quickdash to improve her quality of life LTG Duration 10 weeks Assessment Summary Assessment UTTT was positive for median nerve. But symptoms relieved after maunal therapy. Pt's pain also significantly reduced after manual therapy on infraspinatus, L trap, scalenes, levator and nerve glide. Physical Therapy Plan Next Visit Focus/Plan Next Note Type Treatment Note Next Visit Plan assess tolerance gentle cervical ROM, with traction if needed HEP for neck stretch, nerve glide start PROM/AAROM for L shoulder.
--- NOTE | 2019-10-18 18:55 | PT.OTN ---
Current Diagnoses Pain in unspecified shoulder (10/18/19) Physical Therapy Treatment Note PT-OP-A Visit Information Start: 10/04/19 12:46 Freq: Status: Active Protocol: Document 10/18/19 13:00 [facility] (Rec: 10/18/19 15:20 [facility] [id number]) Out-Patient Physical Therapy Visit Information Visit Information Visit Type Treatment Note Visit Note 01/04 Visit Start Time 13:00 Visit Stop Time 13:40 Total Visit Minutes 40 Visit Number 4 Number of MANAGER COSMETIC Visits 0 PT-OP-B Current Condition Start: 10/04/19 12:46 Freq: Status: Active Protocol: Document 10/04/19 13:00 (Rec: 10/04/19 16:57 HH [email or web address]) Current Condition History of Current Condition Onset Date 3 months ago Current Complaints L shoulder pain, difficulty holding a tray and overhead activities History of Current Condition Pt is a 78yo left hand dominant female with post polio syndrome. She presents to clinic with primary c/o new onset of L shoulder pain >6/ 10 and decreased mobility, along with intermittent tingling and numbness sensation on L arm and hand. She described her pain as sharp and achy at superior aspect of the shoulder with clicking/ popping sensation during mobility. She currently has difficulty hold objects like a tray with food up and also overhead/reaching activities such as poonam/doff clothes. She usually sleep on her side which significant aggravates her tingling and numbness sensation to her L arm. She denies any noticeable neck pain but always feel tight with her L shoulder. Pt had PT before for L hip , B LE weakness and LBP and it was successful, but she currently has difficulty to perform seated passive hip abduction stretch. She is still doing home exercises everyday which includes shoulder press and scap row. Prior Treatments and Tests did not have imaging done on c /s , L shoulder Developmental History Developmental History Postpolio syndrome Treatment Goals Patient/Caregiver Goals 1. to be able to reach overhead/ reach without any discomfort 2. To sleep on her side without neurological symptoms. Prior Functional Status Baseline Function- ADL's Independent Baseline Function- Mobility Independent Baseline Function- Gait Pt is power w/c bound. She is able amb with crutches and L AFO and R HAFO Current Functional Impairments (Reported) Functional Limitations- ADL's increased time taken/ use support to hold obejcts that is above her shoulder level increased use of her R hand for functional acitvities d/t L shoulder pain Personal Factors Other Personal Factors That May Effect Post polio syndrome Therapy/Recovery osteopenia PT-OP-C Subjective Start: 10/04/19 12:46 Freq: Status: Active Protocol: Document 10/18/19 13:00 [facility] (Rec: 10/18/19 15:20 [facility] [id number]) OP-PT Subjective Patient Comments Patient Comments Pt reports last sesion was very helpful. Soft tissue work and exercises helped to dec tingling in arms. Pt reports she had to hold and lift gallon water jugs yesterday and that inc her pain in her shoulder PT-OP-E Functional Tests Start: 10/04/19 12:46 Freq: Status: Active Protocol: Document 10/04/19 13:00 (Rec: 10/04/19 16:57 HH [email or web address]) Functional Tests Apley's Scratch Test Action 2- Left R ear Action 2- Right L inferior scap pole Action 3- Left T8 with significant pain Action 3- Right T8 PT-OP-J Posture/Palpation/Skin Start: 10/04/19 12:46 Freq: Status: Active Protocol: Document 10/04/19 13:00 HH (Rec: 10/04/19 13:47 HH [email or web address]) Posture Evaluation Position Sitting Evaluation View Anterior Head/C-Spine Posture Rotated Left,Side Bent Left T-Spine Posture Increased Kyphosis L-Spine Posture Increased Lordosis Shoulder Posture (L) Rounded,(R) Rounded Palpation Assessment Location R trap Palpation Location R trap Palpation Findings Muscle Guarding,Tenderness, Trigger Point Palpation Details reports of increased tingling and numbness sensation to L arm and hand PT-OP-K Range of Motion Start: 10/04/19 12:46 Freq: Status: Active Protocol: Document 10/04/19 13:00 HH (Rec: 10/04/19 13:47 HH [email or web address]) Cervical Spine Range of Motion Cervical Spine Active Percentage Testing Position Sitting Flexion 50 Extension 30 Rotation Left 60 Rotation Right 50 Lateral Flexion Left 30 Lateral Flexion Right 20 ROM Limitations Pain Comments Report of pain during end range ext, R rotation, R SB Increased numbness and tingling sensation to L arm and hand with overpressure of ext, R rotation, R SB Shoulder Goniometric Range of Motion Shoulder Right Active Shoulder ROM WFL Yes Testing Position Sitting Flexion 160 Extension 50 Abduction 155 External Rotation at 90 degrees 80 Abduction Internal Rotation 80 Left Active Shoulder ROM WFL Yes Testing Position Sitting Flexion 140 Extension 50 Abduction 133 External Rotation at 90 degrees 60 Abduction Internal Rotation 70 Shoulder ROM Limitations Shoulder ROM Limitations Soft Tissue Tightness,Pain Comments Painful arc >100 flexion L side pain at end range IR and ER on L side. PT-OP-L Special Tests Start: 10/04/19 12:46 Freq: Status: Active Protocol: Document 10/04/19 13:00 (Rec: 10/04/19 13:47 [email or web address]) Special Tests Cervical Spine Special Tests adson test Test Results +VE L Comments with R rot and R SB Spurling's Test Test Results -ve Foraminal Compression Test Results +ve Comments Increased numbness and tingling sensation to L arm and hand Shoulder Special Tests IR/Horizontal ADD Impingement Test Results +VE L Belly Press Test Results -ve L Empty Can Test Results +VE L Drop Arm Rotator Cuff Test Results -VE L Comments Able to hold position but report pain >90 degrees elevation AC Joint Compression Test Results +VE L PT-OP-M Strength Start: 10/04/19 12:46 Freq: Status: Active Protocol: Document 10/04/19 13:00 (Rec: 10/04/19 16:57 [email or web address]) Shoulder Strength Shoulder Manual Muscle Testing Right Flexion 4+ Good+ Extension 4+ Good+ Abduction (C5) 4+ Good+ Adduction 4+ Good+ External Rotation 4+ Good+ Internal Rotation 4+ Good+ Left Flexion 3+ Fair+ Extension 4- Good- Abduction (C5) 3+ Fair+ Adduction 4- Good- External Rotation 3+ Fair+ Internal Rotation 3+ Fair+ Reason Not Measured Pain Comments breaks easily with MMT d/t significant pain. PT-OP-Q Treatments Start: 10/04/19 12:46 Freq: Status: Active Protocol: Document 10/18/19 13:00 [facility] (Rec: 10/18/19 15:20 [facility] [id number]) Therapeutic Exercises Supine Exercises shoulder flx Supine Exercise Name 1.chest press 2. chest press then flex Equipment Used cane Reps/Minutes 15 ea Comments AAROm Sitting Exercises flex Sitting Exercise Name AAROm Side left Reps/Minutes 10 Comments self assist ER Sitting Exercise Name AAROM Side left Reps/Minutes 15 median n glide Side bilateral Reps/Minutes 10 seated neck stretches Sitting Exercise Name R cervical ROT, R SB Side left Reps/Minutes 10 secs hold x3 Manual Therapy Treatment Soft Tissue Mobilization scalenes & pec Body Location L Mobilization Type Rolling Intensity/Depth Moderate Body Position Supine L trap and levator Mobilization Type Sustained Pressure,Trigger Point Release Intensity/Depth Moderate Body Position Sitting L infraspinatus Mobilization Type Sustained Pressure,Trigger Point Release Intensity/Depth Moderate Body Position Sidelying Joint Mobilizations GH Direction posterior, distraction glide Grade II Body Position Supine PT-OP-T Assessment and Plan Start: 10/04/19 12:46 Freq: Status: Active Protocol: Document 10/18/19 13:00 [facility] (Rec: 10/18/19 15:20 [facility] [id number]) Physical Therapy Assessment Goals neurological symptoms Impairment Pt has tingling and numbness sensation to her L UE Residential Door Installer Goal (LTG) Pt will not have any tingling and numbness sensation down to her L arm and hand to improve her quality of sleep. LTG Duration 5 weeks Strength Impairment L shoulder grossly 3+ to 4-/5 on MMT Short Term Goal (STG) Pt will reach 4 - /5 for gross shoulder strength to improve functional strength STG Duration 5 weeks [facility] Goal (LTG) Pt will reach 4 to 4+/5 for gross shoulder strength to improve functional strength in order to hold on a tray food without any discomfort. LTG Duration 10 weeks ROM Impairment Pt has gross 20 degrees loss of AROM of all shoulder ROM. Short Term Goal (STG) Pt will regain 10 degrees for all ROM in different anatomical planes to improve mobility functinoal activties such as poonam/doff clothes STG Duration 5 weeks [facility] Goal (LTG) Pt will regain 20 degrees for all ROM in different anatomical planes to improve mobility functinoal activties such as poonam/doff clothes LTG Duration 10 weeks Quickdash Impairment pt scores 29.5 on quick dash ( 20-39% impairment) Residential Door Installer Goal (LTG) Pt will score <19 (1-19% impairment) on quickdash to improve her quality of life LTG Duration 10 weeks Assessment Summary Assessment Pt required signfiicant cueing re: staying in comfortable range with exercises and not pushing past pain. She was doing well with form with last session's prescribed exercises. She has signfiicant mm tightness in cervical mm which likely contributes to pain as she often elevates entire shoulder girdle when trying to raise LUE. Physical Therapy Plan Frequency and Duration Frequency of Treatment 2x/Week Duration of Treatment 10 weeks Plan of Care Start Date 10/04/19 Plan of Care End Date 12/18/19 Next Visit Focus/Plan Next Note Type Treatment Note Next Visit Plan assess tolerance and review new HEP gentle cervical ROM, with traction if needed progress PROM/AAROM for L shoulder.
--- NOTE | 2019-10-20 13:50 | PT.OTN ---
Current Diagnoses Pain in unspecified shoulder (10/20/19) Physical Therapy Treatment Note PT-OP-A Visit Information Start: 10/04/19 12:46 Freq: Status: Active Protocol: Document 10/20/19 13:00 (Rec: 10/20/19 13:50 [id number]) Out-Patient Physical Therapy Visit Information Visit Information Visit Type Treatment Note Visit Note 01/04 Visit Start Time 13:00 Visit Stop Time 13:43 Total Visit Minutes 43 Visit Number 01/04 Number of NURSE INFECTION CONTROL Visits 0 PT-OP-B Current Condition Start: 10/04/19 12:46 Freq: Status: Active Protocol: Document 10/04/19 13:00 (Rec: 10/04/19 16:57 [email or web address]) Current Condition History of Current Condition Onset Date 3 months ago Current Complaints L shoulder pain, difficulty holding a tray and overhead activities History of Current Condition Pt is a 78yo left hand dominant female with post polio syndrome. She presents to clinic with primary c/o new onset of L shoulder pain >6/ 10 and decreased mobility, along with intermittent tingling and numbness sensation on L arm and hand. She described her pain as sharp and achy at superior aspect of the shoulder with clicking/ popping sensation during mobility. She currently has difficulty hold objects like a tray with food up and also overhead/reaching activities such as poonam/doff clothes. She usually sleep on her side which significant aggravates her tingling and numbness sensation to her L arm. She denies any noticeable neck pain but always feel tight with her L shoulder. Pt had PT before for L hip , B LE weakness and LBP and it was successful, but she currently has difficulty to perform seated passive hip abduction stretch. She is still doing home exercises everyday which includes shoulder press and scap row. Prior Treatments and Tests did not have imaging done on c /s , L shoulder Developmental History Developmental History Postpolio syndrome Treatment Goals Patient/Caregiver Goals 1. to be able to reach overhead/ reach without any discomfort 2. To sleep on her side without neurological symptoms. Prior Functional Status Baseline Function- ADL's Independent Baseline Function- Mobility Independent Baseline Function- Gait Pt is power w/c bound. She is able amb with crutches and L AFO and R HAFO Current Functional Impairments (Reported) Functional Limitations- ADL's increased time taken/ use support to hold obejcts that is above her shoulder level increased use of her R hand for functional acitvities d/t L shoulder pain Personal Factors Other Personal Factors That May Effect Post polio syndrome Therapy/Recovery osteopenia PT-OP-C Subjective Start: 10/04/19 12:46 Freq: Status: Active Protocol: Document 10/20/19 13:00 (Rec: 10/20/19 13:50 [id number]) OP-PT Subjective Patient Comments Patient Comments The manual therapy from last visit made me very sore and i thnik overdid it. But my tringling and numbness sensation has been improved significantly Patient Reported Progress Improving PT-OP-E Functional Tests Start: 10/04/19 12:46 Freq: Status: Active Protocol: Document 10/04/19 13:00 (Rec: 10/04/19 16:57 [email or web address]) Functional Tests Apley's Scratch Test Action 2- Left R ear Action 2- Right L inferior scap pole Action 3- Left T8 with significant pain Action 3- Right T8 PT-OP-J Posture/Palpation/Skin Start: 10/04/19 12:46 Freq: Status: Active Protocol: Document 10/04/19 13:00 (Rec: 10/04/19 13:47 [email or web address]) Posture Evaluation Position Sitting Evaluation View Anterior Head/C-Spine Posture Rotated Left,Side Bent Left T-Spine Posture Increased Kyphosis L-Spine Posture Increased Lordosis Shoulder Posture (L) Rounded,(R) Rounded Palpation Assessment Location R trap Palpation Location R trap Palpation Findings Muscle Guarding,Tenderness, Trigger Point Palpation Details reports of increased tingling and numbness sensation to L arm and hand PT-OP-K Range of Motion Start: 10/04/19 12:46 Freq: Status: Active Protocol: Document 10/04/19 13:00 (Rec: 10/04/19 13:47 [email or web address]) Cervical Spine Range of Motion Cervical Spine Active Percentage Testing Position Sitting Flexion 50 Extension 30 Rotation Left 60 Rotation Right 50 Lateral Flexion Left 30 Lateral Flexion Right 20 ROM Limitations Pain Comments Report of pain during end range ext, R rotation, R SB Increased numbness and tingling sensation to L arm and hand with overpressure of ext, R rotation, R SB Shoulder Goniometric Range of Motion Shoulder Right Active Shoulder ROM WFL Yes Testing Position Sitting Flexion 160 Extension 50 Abduction 155 External Rotation at 90 degrees 80 Abduction Internal Rotation 80 Left Active Shoulder ROM WFL Yes Testing Position Sitting Flexion 140 Extension 50 Abduction 133 External Rotation at 90 degrees 60 Abduction Internal Rotation 70 Shoulder ROM Limitations Shoulder ROM Limitations Soft Tissue Tightness,Pain Comments Painful arc >100 flexion L side pain at end range IR and ER on L side. PT-OP-L Special Tests Start: 10/04/19 12:46 Freq: Status: Active Protocol: Document 10/04/19 13:00 (Rec: 10/04/19 13:47 [email or web address]) Special Tests Cervical Spine Special Tests adson test Test Results +VE L Comments with R rot and R SB Spurling's Test Test Results -ve Foraminal Compression Test Results +ve Comments Increased numbness and tingling sensation to L arm and hand Shoulder Special Tests IR/Horizontal ADD Impingement Test Results +VE L Belly Press Test Results -ve L Empty Can Test Results +VE L Drop Arm Rotator Cuff Test Results -VE L Comments Able to hold position but report pain >90 degrees elevation AC Joint Compression Test Results +VE L PT-OP-M Strength Start: 10/04/19 12:46 Freq: Status: Active Protocol: Document 10/04/19 13:00 (Rec: 10/04/19 16:57 [email or web address]) Shoulder Strength Shoulder Manual Muscle Testing Right Flexion 4+ Good+ Extension 4+ Good+ Abduction (C5) 4+ Good+ Adduction 4+ Good+ External Rotation 4+ Good+ Internal Rotation 4+ Good+ Left Flexion 3+ Fair+ Extension 4- Good- Abduction (C5) 3+ Fair+ Adduction 4- Good- External Rotation 3+ Fair+ Internal Rotation 3+ Fair+ Reason Not Measured Pain Comments breaks easily with MMT d/t significant pain. PT-OP-Q Treatments Start: 10/04/19 12:46 Freq: Status: Active Protocol: Document 10/20/19 13:00 (Rec: 10/20/19 13:50 [id number]) Therapeutic Exercises Supine Exercises tennis ball release Supine Exercise Name at RTC Side left Equipment Used leaning against tennis ball Comments self massage at home supine ER IR Supine Exercise Name L shoulder Side left Resistance 1lb ball Reps/Minutes 8 mins Comments end range to end range. slow eccentric control Sidelying Exercises SL shoulder ABD Side left Reps/Minutes 8 x2 shoulder horizontal abd Sidelying Exercise Name shoulder at 90 abduction Side left Reps/Minutes 8 x2 Manual Therapy Treatment Soft Tissue Mobilization scalenes & pec Body Location L Mobilization Type Rolling Intensity/Depth Moderate Body Position Supine L trap and levator Mobilization Type Sustained Pressure,Trigger Point Release Intensity/Depth Moderate Body Position Sitting L infraspinatus Mobilization Type Sustained Pressure,Trigger Point Release Intensity/Depth Moderate Body Position Sidelying Joint Mobilizations GH Direction posterior, distraction glide Grade II Body Position Supine Manual Traction Cervical Body Position Supine Reps/Duration 10 secs hold x 5 Comments f/b R SB and R rotation PT-OP-T Assessment and Plan Start: 10/04/19 12:46 Freq: Status: Active Protocol: Document 10/20/19 13:00 (Rec: 10/20/19 13:50 [id number]) Physical Therapy Assessment Goals neurological symptoms Impairment Pt has tingling and numbness sensation to her L UE Fci Goal (LTG) Pt will not have any tingling and numbness sensation down to her L arm and hand to improve her quality of sleep. LTG Duration 5 weeks Strength Impairment L shoulder grossly 3+ to 4-/5 on MMT Short Term Goal (STG) Pt will reach 4 - /5 for gross shoulder strength to improve functional strength STG Duration 5 weeks Warehouse Production Worker Goal (LTG) Pt will reach 4 to 4+/5 for gross shoulder strength to improve functional strength in order to hold on a tray food without any discomfort. LTG Duration 10 weeks ROM Impairment Pt has gross 20 degrees loss of AROM of all shoulder ROM. Short Term Goal (STG) Pt will regain 10 degrees for all ROM in different anatomical planes to improve mobility functinoal activties such as poonam/doff clothes STG Duration 5 weeks Warehouse Production Worker Goal (LTG) Pt will regain 20 degrees for all ROM in different anatomical planes to improve mobility functinoal activties such as poonam/doff clothes LTG Duration 10 weeks Quickdash Impairment pt scores 29.5 on quick dash ( 20-39% impairment) Warehouse Production Worker Goal (LTG) Pt will score <19 (1-19% impairment) on quickdash to improve her quality of life LTG Duration 10 weeks Assessment Summary Assessment Pt shows improved neural sensitivity and active cervical ROM without shooting pain to L shoulder. however, Pt L shoulder is very tender to touch and pressure. Reduced intensity for manual therapy today. Pt reports her pain reduced with L GH anterior stabilization by therapist hand during active ER./ IR. Added supine shoulder ER/IR with water bottle and tennis ball release today. Physical Therapy Plan Next Visit Focus/Plan Next Note Type Treatment Note Next Visit Plan assess tolerance and review new HEP gentle cervical ROM, with traction if needed progress PROM/AAROM for L shoulder.
--- NOTE | 2019-11-15 18:34 | PT.OTN ---
Current Diagnoses Pain in unspecified shoulder (11/15/19) Physical Therapy Treatment Note PT-OP-A Visit Information Start: 10/04/19 12:46 Freq: Status: Active Protocol: Document 11/15/19 13:00 (Rec: 11/15/19 18:34 [id number]) Out-Patient Physical Therapy Visit Information Visit Information Visit Type Treatment Note Visit Note MRI result: Full-thickness tear of the supraspinatus tendon. Infraspinatus tendinopathy with interstitial tearing and low-grade partial-thickness articular sided tear. Mild subscapularis tendinopathy Diffuse atrophy of the rotator cuff musculature as above Moderate to large joint effusion Acromioclavicular and glenohumeral degenerative joint disease Superior labral degenerative tear versus advanced degeneration, probably chronic/age-related. Long head biceps tendinopathy Visit Start Time 13:00 Visit Stop Time 13:43 Total Visit Minutes 43 Visit Number 4/10 Number of OPERATIONS OFFICER TRUST DEPARTMENT Visits 0 PT-OP-B Current Condition Start: 10/04/19 12:46 Freq: Status: Active Protocol: Document 10/04/19 13:00 (Rec: 10/04/19 16:57 [email or web address]) Current Condition History of Current Condition Onset Date 3 months ago Current Complaints L shoulder pain, difficulty holding a tray and overhead activities History of Current Condition Pt is a 78yo left hand dominant female with post polio syndrome. She presents to clinic with primary c/o new onset of L shoulder pain >6/ 10 and decreased mobility, along with intermittent tingling and numbness sensation on L arm and hand. She described her pain as sharp and achy at superior aspect of the shoulder with clicking/ popping sensation during mobility. She currently has difficulty hold objects like a tray with food up and also overhead/reaching activities such as poonam/doff clothes. She usually sleep on her side which significant aggravates her tingling and numbness sensation to her L arm. She denies any noticeable neck pain but always feel tight with her L shoulder. Pt had PT before for L hip , B LE weakness and LBP and it was successful, but she currently has difficulty to perform seated passive hip abduction stretch. She is still doing home exercises everyday which includes shoulder press and scap row. Prior Treatments and Tests did not have imaging done on c /s , L shoulder Developmental History Developmental History Postpolio syndrome Treatment Goals Patient/Caregiver Goals 1. to be able to reach overhead/ reach without any discomfort 2. To sleep on her side without neurological symptoms. Prior Functional Status Baseline Function- ADL's Independent Baseline Function- Mobility Independent Baseline Function- Gait Pt is power w/c bound. She is able amb with crutches and L AFO and R HAFO Current Functional Impairments (Reported) Functional Limitations- ADL's increased time taken/ use support to hold obejcts that is above her shoulder level increased use of her R hand for functional acitvities d/t L shoulder pain Personal Factors Other Personal Factors That May Effect Post polio syndrome Therapy/Recovery osteopenia PT-OP-C Subjective Start: 10/04/19 12:46 Freq: Status: Active Protocol: Document 11/15/19 13:00 (Rec: 11/15/19 18:34 [id number]) OP-PT Subjective Patient Comments Patient Comments I got a bad cold for the past month and couldnt make it to any appointment. I was very inactive. But my shoulder actually feels better since i didnt do much at all. The manual therapy and nerve glide reduce a lot of my tingling and numbness symptoms. Patient Reported Progress Improving PT-OP-E Functional Tests Start: 10/04/19 12:46 Freq: Status: Active Protocol: Document 10/04/19 13:00 HH (Rec: 10/04/19 16:57 [email or web address]) Functional Tests Apley's Scratch Test Action 2- Left R ear Action 2- Right L inferior scap pole Action 3- Left T8 with significant pain Action 3- Right T8 PT-OP-J Posture/Palpation/Skin Start: 10/04/19 12:46 Freq: Status: Active Protocol: Document 10/04/19 13:00 HH (Rec: 10/04/19 13:47 [email or web address]) Posture Evaluation Position Sitting Evaluation View Anterior Head/C-Spine Posture Rotated Left,Side Bent Left T-Spine Posture Increased Kyphosis L-Spine Posture Increased Lordosis Shoulder Posture (L) Rounded,(R) Rounded Palpation Assessment Location R trap Palpation Location R trap Palpation Findings Muscle Guarding,Tenderness, Trigger Point Palpation Details reports of increased tingling and numbness sensation to L arm and hand PT-OP-K Range of Motion Start: 10/04/19 12:46 Freq: Status: Active Protocol: Document 10/04/19 13:00 (Rec: 10/04/19 13:47 [email or web address]) Cervical Spine Range of Motion Cervical Spine Active Percentage Testing Position Sitting Flexion 50 Extension 30 Rotation Left 60 Rotation Right 50 Lateral Flexion Left 30 Lateral Flexion Right 20 ROM Limitations Pain Comments Report of pain during end range ext, R rotation, R SB Increased numbness and tingling sensation to L arm and hand with overpressure of ext, R rotation, R SB Shoulder Goniometric Range of Motion Shoulder Right Active Shoulder ROM WFL Yes Testing Position Sitting Flexion 160 Extension 50 Abduction 155 External Rotation at 90 degrees 80 Abduction Internal Rotation 80 Left Active Shoulder ROM WFL Yes Testing Position Sitting Flexion 140 Extension 50 Abduction 133 External Rotation at 90 degrees 60 Abduction Internal Rotation 70 Shoulder ROM Limitations Shoulder ROM Limitations Soft Tissue Tightness,Pain Comments Painful arc >100 flexion L side pain at end range IR and ER on L side. PT-OP-L Special Tests Start: 10/04/19 12:46 Freq: Status: Active Protocol: Document 10/04/19 13:00 (Rec: 10/04/19 13:47 [email or web address]) Special Tests Cervical Spine Special Tests adson test Test Results +VE L Comments with R rot and R SB Spurling's Test Test Results -ve Foraminal Compression Test Results +ve Comments Increased numbness and tingling sensation to L arm and hand Shoulder Special Tests IR/Horizontal ADD Impingement Test Results +VE L Belly Press Test Results -ve L Empty Can Test Results +VE L Drop Arm Rotator Cuff Test Results -VE L Comments Able to hold position but report pain >90 degrees elevation AC Joint Compression Test Results +VE L PT-OP-M Strength Start: 10/04/19 12:46 Freq: Status: Active Protocol: Document 10/04/19 13:00 (Rec: 10/04/19 16:57 [email or web address]) Shoulder Strength Shoulder Manual Muscle Testing Right Flexion 4+ Good+ Extension 4+ Good+ Abduction (C5) 4+ Good+ Adduction 4+ Good+ External Rotation 4+ Good+ Internal Rotation 4+ Good+ Left Flexion 3+ Fair+ Extension 4- Good- Abduction (C5) 3+ Fair+ Adduction 4- Good- External Rotation 3+ Fair+ Internal Rotation 3+ Fair+ Reason Not Measured Pain Comments breaks easily with MMT d/t significant pain. PT-OP-Q Treatments Start: 10/04/19 12:46 Freq: Status: Active Protocol: Document 11/15/19 13:00 (Rec: 11/15/19 18:34 [id number]) Therapeutic Exercises Supine Exercises tennis ball release Supine Exercise Name at RTC Side left Equipment Used leaning against tennis ball Comments self massage at home shoulder flx Supine Exercise Name with wand, slow control Side bilateral Comments for HEP Sidelying Exercises SL shoulder ABD Side left Reps/Minutes 8 x2 Comments for HEP Manual Therapy Treatment Soft Tissue Mobilization scalenes & pec Body Location L Mobilization Type Rolling Intensity/Depth Moderate Body Position Supine L trap and levator Mobilization Type Sustained Pressure,Trigger Point Release Intensity/Depth Moderate Body Position Sitting L infraspinatus Mobilization Type Sustained Pressure,Trigger Point Release Intensity/Depth Moderate Body Position Sidelying Joint Mobilizations GH Direction posterior, distraction glide Grade II Body Position Supine Comments with passive ER/IR PT-OP-T Assessment and Plan Start: 10/04/19 12:46 Freq: Status: Active Protocol: Document 11/15/19 13:00 (Rec: 11/15/19 18:34 [id number]) Physical Therapy Assessment Goals neurological symptoms Impairment Pt has tingling and numbness sensation to her L UE Order Expediter Goal (LTG) Pt will not have any tingling and numbness sensation down to her L arm and hand to improve her quality of sleep. LTG Duration 5 weeks Strength Impairment L shoulder grossly 3+ to 4-/5 on MMT Short Term Goal (STG) Pt will reach 4 - /5 for gross shoulder strength to improve functional strength STG Duration 5 weeks Fci Goal (LTG) Pt will reach 4 to 4+/5 for gross shoulder strength to improve functional strength in order to hold on a tray food without any discomfort. LTG Duration 10 weeks ROM Impairment Pt has gross 20 degrees loss of AROM of all shoulder ROM. Short Term Goal (STG) Pt will regain 10 degrees for all ROM in different anatomical planes to improve mobility functinoal activties such as poonam/doff clothes STG Duration 5 weeks Fci Goal (LTG) Pt will regain 20 degrees for all ROM in different anatomical planes to improve mobility functinoal activties such as poonam/doff clothes LTG Duration 10 weeks Quickdash Impairment pt scores 29.5 on quick dash ( 20-39% impairment) Order Expediter Goal (LTG) Pt will score <19 (1-19% impairment) on quickdash to improve her quality of life LTG Duration 10 weeks Assessment Summary Assessment Pt has not visited therapy since 10/20 due to a cold and pt has been inactive since. Her recent MRI also show full thickness tear with supraspinatus tendon, infraspinatus tendinopathy, subscapularis tendinopathy, atrophy of RTF, AC and GH joint disease, and superior labral degenerative chronic tear and long head biceps tendinopathy. However, pt does not have neck/ radiating pain and her shoulder pain did decrease with improved active ROM possibly due to sufficient rest, she also reports reduced tingling/ numbness symptoms by doing nerve glide exercises. Today's tx focused on manual therapy on RTC group and added AAROM with wand. Since pt's pain subsided, educated her to focus on progressive ROM/ strengthening without over do them. Physical Therapy Plan Next Visit Focus/Plan Next Note Type Treatment Note Next Visit Plan assess tolerance and review new HEP manual therapy on GH positioning, relaxation of RTC progress AAROM/ AROM as tolerated.
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
--- NOTE | 2019-12-06 17:34 | PT.OTN ---
Current Diagnoses Pain in unspecified shoulder (12/06/19) Physical Therapy Treatment Note PT-OP-A Visit Information Start: 10/04/19 12:46 Freq: Status: Active Protocol: Document 12/06/19 16:50 HH (Rec: 12/06/19 17:34 [id number]) Out-Patient Physical Therapy Visit Information Visit Information Visit Type Treatment Note Visit Note Pt's last visit= 11/22 due to recurrent symptoms of cold. Visit Start Time 16:50 Visit Stop Time 17:30 Total Visit Minutes 40 Visit Number 7 Number of FINISH INSPECTOR Visits 0 PT-OP-B Current Condition Start: 10/04/19 12:46 Freq: Status: Active Protocol: Document 10/04/19 13:00 HH (Rec: 10/04/19 16:57 HH [email or web address]) Current Condition History of Current Condition Onset Date 3 months ago Current Complaints L shoulder pain, difficulty holding a tray and overhead activities History of Current Condition Pt is a 78yo left hand dominant female with post polio syndrome. She presents to clinic with primary c/o new onset of L shoulder pain >6/ 10 and decreased mobility, along with intermittent tingling and numbness sensation on L arm and hand. She described her pain as sharp and achy at superior aspect of the shoulder with clicking/ popping sensation during mobility. She currently has difficulty hold objects like a tray with food up and also overhead/reaching activities such as poonam/doff clothes. She usually sleep on her side which significant aggravates her tingling and numbness sensation to her L arm. She denies any noticeable neck pain but always feel tight with her L shoulder. Pt had PT before for L hip , B LE weakness and LBP and it was successful, but she currently has difficulty to perform seated passive hip abduction stretch. She is still doing home exercises everyday which includes shoulder press and scap row. Prior Treatments and Tests did not have imaging done on c /s , L shoulder Developmental History Developmental History Postpolio syndrome Treatment Goals Patient/Caregiver Goals 1. to be able to reach overhead/ reach without any discomfort 2. To sleep on her side without neurological symptoms. Prior Functional Status Baseline Function- ADL's Independent Baseline Function- Mobility Independent Baseline Function- Gait Pt is power w/c bound. She is able amb with crutches and L AFO and R HAFO Current Functional Impairments (Reported) Functional Limitations- ADL's increased time taken/ use support to hold obejcts that is above her shoulder level increased use of her R hand for functional acitvities d/t L shoulder pain Personal Factors Other Personal Factors That May Effect Post polio syndrome Therapy/Recovery osteopenia PT-OP-C Subjective Start: 10/04/19 12:46 Freq: Status: Active Protocol: Document 12/06/19 16:50 HH (Rec: 12/06/19 17:34 HH [id number]) OP-PT Subjective Patient Comments Patient Comments Michelle been doing my exercises and i am able to do with 2lbs DB. I dont have any shooting pain/ numbness / tingling symptoms now. Patient Reported Progress Improving PT-OP-E Functional Tests Start: 10/04/19 12:46 Freq: Status: Active Protocol: Document 10/04/19 13:00 HH (Rec: 10/04/19 16:57 HH [email or web address]) Functional Tests Apley's Scratch Test Action 2- Left R ear Action 2- Right L inferior scap pole Action 3- Left T8 with significant pain Action 3- Right T8 PT-OP-J Posture/Palpation/Skin Start: 10/04/19 12:46 Freq: Status: Active Protocol: Document 10/04/19 13:00 HH (Rec: 10/04/19 13:47 HH [email or web address]) Posture Evaluation Position Sitting Evaluation View Anterior Head/C-Spine Posture Rotated Left,Side Bent Left T-Spine Posture Increased Kyphosis L-Spine Posture Increased Lordosis Shoulder Posture (L) Rounded,(R) Rounded Palpation Assessment Location R trap Palpation Location R trap Palpation Findings Muscle Guarding,Tenderness, Trigger Point Palpation Details reports of increased tingling and numbness sensation to L arm and hand PT-OP-K Range of Motion Start: 10/04/19 12:46 Freq: Status: Active Protocol: Document 10/04/19 13:00 HH (Rec: 10/04/19 13:47 HH [email or web address]) Cervical Spine Range of Motion Cervical Spine Active Percentage Testing Position Sitting Flexion 50 Extension 30 Rotation Left 60 Rotation Right 50 Lateral Flexion Left 30 Lateral Flexion Right 20 ROM Limitations Pain Comments Report of pain during end range ext, R rotation, R SB Increased numbness and tingling sensation to L arm and hand with overpressure of ext, R rotation, R SB Shoulder Goniometric Range of Motion Shoulder Right Active Shoulder ROM WFL Yes Testing Position Sitting Flexion 160 Extension 50 Abduction 155 External Rotation at 90 degrees 80 Abduction Internal Rotation 80 Left Active Shoulder ROM WFL Yes Testing Position Sitting Flexion 140 Extension 50 Abduction 133 External Rotation at 90 degrees 60 Abduction Internal Rotation 70 Shoulder ROM Limitations Shoulder ROM Limitations Soft Tissue Tightness,Pain Comments Painful arc >100 flexion L side pain at end range IR and ER on L side. PT-OP-L Special Tests Start: 10/04/19 12:46 Freq: Status: Active Protocol: Document 10/04/19 13:00 HH (Rec: 10/04/19 13:47 [email or web address]) Special Tests Cervical Spine Special Tests adson test Test Results +VE L Comments with R rot and R SB Spurling's Test Test Results -ve Foraminal Compression Test Results +ve Comments Increased numbness and tingling sensation to L arm and hand Shoulder Special Tests IR/Horizontal ADD Impingement Test Results +VE L Belly Press Test Results -ve L Empty Can Test Results +VE L Drop Arm Rotator Cuff Test Results -VE L Comments Able to hold position but report pain >90 degrees elevation AC Joint Compression Test Results +VE L PT-OP-M Strength Start: 10/04/19 12:46 Freq: Status: Active Protocol: Document 10/04/19 13:00 (Rec: 10/04/19 16:57 [email or web address]) Shoulder Strength Shoulder Manual Muscle Testing Right Flexion 4+ Good+ Extension 4+ Good+ Abduction (C5) 4+ Good+ Adduction 4+ Good+ External Rotation 4+ Good+ Internal Rotation 4+ Good+ Left Flexion 3+ Fair+ Extension 4- Good- Abduction (C5) 3+ Fair+ Adduction 4- Good- External Rotation 3+ Fair+ Internal Rotation 3+ Fair+ Reason Not Measured Pain Comments breaks easily with MMT d/t significant pain. PT-OP-Q Treatments Start: 10/04/19 12:46 Freq: Status: Active Protocol: Document 12/06/19 16:50 (Rec: 12/06/19 17:34 [id number]) Therapeutic Exercises Supine Exercises resisted ER Supine Exercise Name with active ER Equipment Used yellow band at wrists Reps/Minutes 5 sec x 5 Comments pain free supine ER IR Supine Exercise Name full range Equipment Used with 1lb yellow ball Reps/Minutes 2 mins Comments pain reported at end range ER Sidelying Exercises shoulder ER Side left Reps/Minutes 8 x2 Comments scap retraction first. no weight SL shoulder ABD Sidelying Exercise Name pain free Side left Equipment Used 2# DB Reps/Minutes 8 x2 Comments reports of fatigue after shoulder horizontal abd Sidelying Exercise Name shoulder at 90 abduction Side left Equipment Used 2# DB Reps/Minutes 8 x2 Comments with scap retraction first, with pain with 1# Manual Therapy Treatment Soft Tissue Mobilization L lats Mobilization Type Sustained Pressure,Trigger Point Release Intensity/Depth Moderate Body Position Sidelying L trap and levator Mobilization Type Sustained Pressure,Trigger Point Release Intensity/Depth Moderate Body Position Sitting L infraspinatus Mobilization Type Sustained Pressure,Trigger Point Release Intensity/Depth Moderate Body Position Sidelying Joint Mobilizations GH Direction posterior, distraction glide Grade II Body Position Supine Comments pain at 60 degrees at first. with passive ER/IR PT-OP-T Assessment and Plan Start: 10/04/19 12:46 Freq: Status: Active Protocol: Document 12/06/19 16:50 (Rec: 12/06/19 17:34 [id number]) Physical Therapy Assessment Goals neurological symptoms Impairment Pt has tingling and numbness sensation to her L UE Nursing Home Goal (LTG) Pt will not have any tingling and numbness sensation down to her L arm and hand to improve her quality of sleep. LTG Duration 5 weeks Strength Impairment L shoulder grossly 3+ to 4-/5 on MMT Short Term Goal (STG) Pt will reach 4 - /5 for gross shoulder strength to improve functional strength STG Duration 5 weeks Nursing Home Goal (LTG) Pt will reach 4 to 4+/5 for gross shoulder strength to improve functional strength in order to hold on a tray food without any discomfort. LTG Duration 10 weeks ROM Impairment Pt has gross 20 degrees loss of AROM of all shoulder ROM. Short Term Goal (STG) Pt will regain 10 degrees for all ROM in different anatomical planes to improve mobility functinoal activties such as poonam/doff clothes STG Duration 5 weeks Horse Trainer Goal (LTG) Pt will regain 20 degrees for all ROM in different anatomical planes to improve mobility functinoal activties such as poonam/doff clothes LTG Duration 10 weeks Quickdash Impairment pt scores 29.5 on quick dash ( 20-39% impairment) Horse Trainer Goal (LTG) Pt will score <19 (1-19% impairment) on quickdash to improve her quality of life LTG Duration 10 weeks Assessment Summary Assessment Pt shows improved symptoms and pain, along with increased shoulder mobility. Pt able to tolerate all gravity limited shoulder ROM ex with 2lbs DB. Added supine resisted ER and IR. Will progress to AROM ex with gravity position. Physical Therapy Plan Next Visit Focus/Plan Next Note Type Treatment Note Next Visit Plan review HEP manual therapy on GH positioning , espeically ER/IR start with yuri gravity shoulder AROM DB for SL shoulder ex
--- NOTE | 2019-12-11 07:40 | PT-OP ANOTE ---
Pt called and cancelled all appts until January 31 per physician order, high risk. ELEVATOR ADJUSTER called to follow up with patient and provided front office developer appt list January through February scheduled at this time. ELEVATOR ADJUSTER recommended to continue to HEP instructed by PT in the meantime to assist strength per his POC. Any questions to not hesitate to call her PT, Alexandre with verbal confirmation.
--- NOTE | 2020-06-18 11:01 | PT.OPDS ---
Current Diagnoses Pain in unspecified shoulder (12/06/19) Visit Care Team Role Provider Type Michelle Ghotra DO Attending Provider Physician Primary Care Provider Specialty: [facility] Address: [address] [place] [address], [facility] [address], [place], [address] Email: [email or web address] Visit Number Visit Number 7 Discharge Summary PT-OP-T Assessment and Plan Start: 10/04/19 12:46 Freq: Status: Active Protocol: Document 06/18/20 11:00 (Rec: 06/18/20 11:01 [email or web address]) Physical Therapy Plan Discharge Physical Therapy Discharge Comments Patient was scheduled after clinic re-opening, then cancelled all appts due to concern w/ Covid. ANN from PT
== END 2020-07-18 08:23 ==
LOC: PHYS 16:45
PROVIDERS: PCP Family Medicine; Visit Provider Family Medicine
DX: M25.519 Pain in unspecified shoulder (principal)
CPT/HCPCS: 97010; 97110; 97140; 97161; 97535

== ENCOUNTER → 2020-09-02 07:53 | Outpatient (CLI) | payer MEDICARE, OTHER, SELFPAY ==
[2020-09-02 09:05] LABS: Alanine Aminotransferase 62 IU/L (<35); Albumin 4.1 g/dL (3.5-5.0); Albumin Globulin Ratio 1.5 (1.0-2.8); Alkaline Phosphatase 83 U/L (38-126); Aspartate Aminotransferase 71 IU/L (14-36); BUN Creatinine Ratio 14.7 (6-22); Bilirubin Total 0.7 mg/dL (0.2-1.3); Blood Urea Nitrogen 11 mg/dL (7-17); Calcium 10.4 mg/dL (8.4-10.2); Carbon Dioxide 31 mmol/L (22-32); Chloride 99 mmol/L (98-107); Cholesterol 242 mg/dL (140-199); Estimated Glomerular Filt Rate > 60.0 mL/min (>60); Globulin 2.8 g/dL (1.7-4.1); Glucose 109 mg/dL (80-110); HDL Cholesterol 58 mg/dL (40-60); HEMOLYSIS < 15 (0-50); LDL Cholesterol Calculated 141 mg/dL (<100); Potassium 4.5 mmol/L (3.4-5.1); Sodium 134 mmol/L (137-145); Total Protein 6.9 g/dL (6.3-8.2); Triglycerides 217 mg/dL (35-150)
[2020-09-02 10:14] LABS: Free T4, Direct Thyroxine 1.24 ng/dL (0.78-2.19)
[2020-09-03 00:24] LABS: Fecal Immunochemical Test Negative (Negative)
[2020-09-03 06:37] LABS: Parathyroid Hormone Int 74 pg/mL (15-65)
[2020-09-04 15:47] LABS: Free T3, Triiodothyronine Free 3.01 pg/mL (2.77-5.27)
== END ==
PROVIDERS: PCP Family Medicine; Referring Provider Family Medicine; Visit Provider Family Medicine
DX: E21.3 Hyperparathyroidism, unspecified (principal); E03.9 Hypothyroidism, unspecified; E55.9 Vitamin D deficiency, unspecified; E83.52 Hypercalcemia; M81.0 Age-related osteoporosis without current pathological fracture; M85.80 Other specified disorders of bone density and structure, unspecified site; D35.1 Benign neoplasm of parathyroid gland; E78.5 Hyperlipidemia, unspecified; G14 Postpolio syndrome; R94.5 Abnormal results of liver function studies
CPT/HCPCS: 36415; 80053; 80061; 82274; 82306; 83970; 84439; 84443; 84481

== ENCOUNTER → 2020-10-01 07:57 | Outpatient (CLI) | payer MEDICARE, OTHER, SELFPAY ==
[2020-10-01 10:01] LABS: Free T4, Direct Thyroxine 1.53 ng/dL (0.78-2.19)
== END ==
PROVIDERS: PCP Family Medicine; Referring Provider Family Medicine; Visit Provider Family Medicine
DX: E03.9 Hypothyroidism, unspecified (principal); R79.89 Other specified abnormal findings of blood chemistry
CPT/HCPCS: 36415; 84439; 84443

== ENCOUNTER → 2020-11-14 10:09 | Outpatient (CLI) | payer MEDICARE, OTHER, SELFPAY ==
[2020-11-14 11:31] LABS: Free T3, Triiodothyronine Free 3.57 pg/mL (2.77-5.27); Free T4, Direct Thyroxine 1.65 ng/dL (0.78-2.19)
[2020-11-14 11:44] LABS: Thyroid Stimulating Hormone 2.72 uIU/mL (0.47-4.68)
[2020-11-21 01:37] LABS: Triiodothyronine T3 Reverse 24.4 ng/dL (9.2-24.1)
== END ==
PROVIDERS: PCP Family Medicine; Referring Provider Family Medicine; Visit Provider Family Medicine
DX: E03.9 Hypothyroidism, unspecified (principal)
CPT/HCPCS: 36415; 84439; 84443; 84481; 84482

== ENCOUNTER 2021-01-22 22:16 | Observation (INO) | payer MEDICARE, OTHER, SELFPAY ==
[2021-01-22 22:19] VITALS: BP 158/70; PULSE 70; RESP 18; TEMP 36.7; O2SAT 97
--- NOTE | 2021-01-22 22:20 | DI.RAD.S_ITS ---
PROCEDURE: XR KNEE RT 3V INDICATIONS: fell onto knee TECHNIQUE: 3 views of the knee were acquired. COMPARISON: None. FINDINGS: Bones: Cortical step-off noted in the superior margin of the right medial femoral condyle concerning for nondisplaced fracture. Patella is inferiorly displaced No suspicious bony lesions. Soft tissues: Large suprapatellar joint effusion. No suspicious soft tissue calcifications. IMPRESSION: 1. Probable nondisplaced distal right femur fracture. 2. Inferior displacement of the patella which could be related to large joint effusion or ligamentous injury. 3. Large suprapatellar joint effusion. Dictated by: Janice Ferguson MD, PhD on 01/23/2021 at 7:59 Approved by: Janice Ferguson MD, PhD on 01/23/2021 at 8:02
[2021-01-22 22:21] VITALS: PULSE 70; O2SAT 98
--- NOTE | 2021-01-22 23:44 | DI.CT.S_ITS ---
PROCEDURE: CT LE RT WO CON INDICATIONS: possible fracture TECHNIQUE: Noncontrast 1-1.5 mm axial sections acquired from the mid-patella to the proximal tibia, with coronal and sagittal reformats. COMPARISON: [facility], CR, XR KNEE RT 3V, 01/22/2021, 22:20. FINDINGS: Image quality: Excellent. Bones: There is a comminuted fracture of the distal femoral metaphysis with minimal displacement. Tibial plateau is intact. Patella appears intact. Patella baja. Moderate to severe knee joint degeneration with joint space narrowing, most severe in the medial femorotibial compartment.. Soft tissues: There is moderate hemarthrosis. IMPRESSION: 1. Comminuted distal femoral metaphyseal fracture with minimal displacement. 2. Hemarthrosis. 3. Patella baja. No significant discrepancy with the manager night radiology preliminary report. Dictated by: Claudy Claire M.D. on 01/23/2021 at 7:27 Approved by: Claudy Claire M.D. on 01/23/2021 at 7:38
--- NOTE | 2021-01-22 23:48 | ED_ITS ---
HPI - Extremity Injury (Lower) General Chief Complaint: Extremity Injury, Lower Stated Complaint: Rt Knee Pain Time Seen by Provider: 01/22/21 23:24 Source: patient and EMS Mode of arrival: EMS History of Present Illness HPI Narrative: Patient is a 80-year-old female who has history of polio in his wheelchair bound presenting with right leg pain. She says that she is getting ready to move she was passing some things when she fell out of her reach wheelchair landing directly on her right knee. No head injury or loss of consciousness. She has obvious swelling and pain to touch. complaint: knee injury Onset (ago): hour(s) Related Data Home Medications Medication Instructions Recorded Confirmed metoprolol tartrate 25 mg tablet 25 mg PO BID 04/20/18 10/04/20 Previous Rx's Medication Instructions Recorded Disabled Parking Permit #1 ea 04/27/18 levothyroxine 112 mcg tablet 112 mcg PO DAILY #90 tab 11/20/20 cholecalciferol (vitamin D3) 1,250 See Rx Instructions .ROUTE 12/23/20 mcg (50,000 unit) capsule .COMPLEX #12 capsule Allergies Allergy/AdvReac Type Severity Reaction Status Date / Time Penicillins [PENICILLINS] Allergy Severe anaphylaxis, Verified 10/04/20 08:21 itching alendronate sodium AdvReac Intermediate Nausea Verified 10/04/20 08:21 Review of Systems Review of Systems Narrative: GENERAL: Denies chills,fever HEENT: Denies throat pain RESPIRATORY: Denies dyspnea, cough, wheezing CARDIOVASCULAR: Denies chest pain, palpitations GASTROINTESTINAL: Denies nausea, vomiting MUSCULOSKELETAL: See HPI SKIN: No rash, no laceration, no pruritus NEUROLOGIC: Denies weakness, dizziness, headache, numbness 8 point review of systems is negative except for those stated above and HPI Patient History Medical History Abnormal liver function tests (07/04/14) Acquired hypothyroidism Atrial fibrillation (~2012) Cataract (~2013) Chickenpox (~1948) Foot fracture, right (~2014) Fractures GERD (gastroesophageal reflux disease) (~1978) Hypercalcemia (07/04/14) Hyperlipidemia (07/04/14) Hyperparathyroidism, primary (~2013) Hypothyroidism Measles Mumps (~1970) Osteoarthritis (~1974) Osteoporosis (~2008) Paraplegia Parathyroid adenoma (05/07/17) Post-polio syndrome Primary osteoarthritis, left shoulder Scoliosis (~195) Shoulder pain (~2013) Sleep apnea (~2000) Supraspinatus tendon tear Urinary incontinence (~2008) Vision abnormalities Surgical History Anesthesia History of lumbar sympathectomy History of tonsillectomy (~1951) Parathyroid adenoma (~2016) Status post hammer toe correction (~1981) Family History Mother Osteoporosis Father Heart disease Social History household members: none Smoking Status: Former smoker alcohol intake: current Smoking Status: Former smoker Exam Initial Vital Signs Initial Vital Signs: Vital Signs Temperature 98.0 F 01/22/21 22:19 Pulse Rate 70 01/22/21 22:19 Respiratory Rate 18 01/22/21 22:19 Blood Pressure 158/70 H 01/22/21 22:19 Pulse Oximetry 97 01/22/21 22:19 GENERAL: Well-appearing, well-nourished and in no acute distress. HEAD: Head is atraumatic, face is symmetric, EOMI NECK: Supple no vertebral tenderness or step-off CARDIOVASCULAR: peripheral pulses in tact, cap refill <2 sec RESPIRATORY: No respiratory distress, speaks in full sentences without difficulty EXTREMITIES: Normal range of motion, no clubbing or edema. Neurovascularly intact Right lower leg swelling over patella distal pedal pulses intact, pelvis is stable no hip pain NEUROLOGICAL: Cranial nerves II through XII grossly intact. Normal gait and speech. SKIN: Warm, dry, no petechiae, no rashes or lesions. Course Orders Ordered: ED Orders 01/22/21 22:20 XR knee RT 3V Stat 01/22/21 23:44 CT LE RT wo con Stat Acetaminophen (Acetaminophen 325 Mg Tablet) 975 mg PO Q8H [facility] Last Admin: 01/23/21 04:36 Dose: 975 mg Documented by: CHLOE Bisacodyl (Bisacodyl 10 Mg Supp) 10 mg TN DAILY PRN PRN Reason: Constipation Docusate Sodium (Docusate 100 Mg Capsule) 100 mg PO BID [facility] Levothyroxine Sodium (Levothyroxine 112 Mcg Tablet) 112 mcg PO 0600 JANET Metoprolol Tartrate (Metoprolol Ir 25 Mg Tablet) 25 mg PO BID [facility] Naloxone HCl (Naloxone 0.4 Mg/Ml Vial) 0.2 mg IV Q2MIN PRN PRN Reason: Opiate Reversal Ondansetron HCl (Ondansetron 4 Mg/2 Ml Inj) 4 mg IV Q8HR PRN PRN Reason: Nausea And Vomiting Oxycodone HCl (Oxycodone Ir 5 Mg Tablet) 5 mg PO Q6HR PRN PRN Reason: Pain, Moderate (4-6) Oxycodone HCl (Oxycodone Ir 10 Mg Tablet) 10 mg PO Q6HR PRN PRN Reason: Pain, Severe (7-10) Discontinued Medications Morphine Sulfate (Morphine 2 Mg/Ml Inj) 2 mg IV NOW ONE Stop: 01/22/21 23:45 Last Admin: 01/23/21 01:26 Dose: 2 mg Documented by: VIR[place] Vital Signs Vital signs: Vital Signs - 8 hr 01/22/21 22:19 01/22/21 22:21 01/23/21 00:38 Temperature 98.0 F Pulse Rate 70 70 66 Respiratory Rate 18 Blood Pressure 158/70 H 163/99 H Pulse Oximetry 97 98 99 01/23/21 01:00 01/23/21 01:41 01/23/21 02:00 Temperature Pulse Rate 65 68 65 Respiratory Rate Blood Pressure 164/72 H Pulse Oximetry 98 94 98 01/23/21 02:30 Temperature Pulse Rate 67 Respiratory Rate Blood Pressure Pulse Oximetry 97 MDM - Extremity Injury (Lower) Imaging Data Extremity x-ray #1: Radiologist's Impression: Findings are suspicious for distal femur fracture CT LE: Radiologist's Impression: Preliminary report comminuted an acute fracture of distal right femur associated with moderate suprapatellar effusion measures above water density suggesting hemarthrosis MDM Narrative Medical decision making narrative: [address] Stratton updated patient's consult results he has reviewed CT himself. At this time is recommends pillows blanket and discharge home vs admit for pain control. Patient is wheelchair bound. Pain is much better after morphine. Patient's mattresses on the floor at her house she has no help her daughter is able to come off and help her but not this evening. Jaiden becerril in [place] obtain patient's symptoms test results and agrees with it she Discharge Plan Departure Patient Disposition: Admitted as Observation Clinical Impression: Femoral distal fracture Admit Date/Time: 01/23/21 02:32 Admit Provider: Gaudencio Padilla
[2021-01-23] VITALS (16 sets, daily range): BP systolic 127–178; BP diastolic 56–99; PULSE 56–69; RESP 15–18; TEMP 36.2–36.7; O2SAT 94–100; BMI 31.4
[2021-01-23] MEDS: MORPHINE 2 MG/ML INJ IV (01:26)
[2021-01-23 04:04] LABS: COVID19 - ADMIT (NP swab/PCR) Negative (Negative)
[2021-01-23] MEDS: ACETAMINOPHEN 325 MG TABLET 975 MG PO ×3 (04:36→21:09)
--- NOTE | 2021-01-23 04:47 | P.HP_ITS ---
History of Present Illness History of Present Illness Date Patient Seen: 01/23/21 Time Patient Seen: 04:59 Chief complaint: Rt Knee Pain Narrative: Ms. Brenda Del Toro is a 80-year-old female with past medical history significant for atrial fibrillation, hypothyroidism, hyperlipidemia, GERD, post- polio syndrome paraplegia in osteoporosis who presents to the ER with right knee pain. Patient relates that she is in the process of moving in her bed was removed today. She has a thick padded yoga mat on the floor as temporary bedding. She was sliding out of her manual wheelchair to the floor with her leg slid out and she fell from seated position to the floor landing on her right knee. She denies hitting her head or loss of conscious and no neck or back pain. She sustained immediate pain with any movement. Prior to this event the patient has had no recent illnesses, fevers or chills headaches or dizziness. She denies chest pain or palpitations, shortness breath cough or wheezing. She has no epigastric or abdominal pain. She reports normal stooling pattern and is not on any specific bowel regimen. She does have incontinence at night. Upon arrival the ER the patient's temperature 98.0?, heart rate of 70, blood pressure 158/70, respirations of 18 saturating 97% air. Radiographs are taken of the right a finding of distal femur fracture involving the lateral condyle. A CT of the right knee without contrast finds comminuted acute fracture of the distal right with suprapatellar effusion consistent with hemarthrosis. Twelve lead EKG: Sinus rhythm at 77 with an incomplete right bundle branch block, no ST or T-wave changes. No labs are drawn in the ER with no recent historic labs. Dr. Stratton is contacted through the emergency department. He reviewed images intermittent the the fractures non operative recommend splinting and discharge. The patient is unable to return to home setting being paraplegic and wheelchair- bound and unable to manage a splinted extremity. The patient is admitted to the hospital service being unable to return home for further evaluation and treatment for distal femur fracture. PCP: Dr. Ghotra Cardiology: Dr. Wiseman Patient History Medical History (Updated 01/23/21 @ 05:52 by MABEL Jacobo) Abnormal liver function tests (07/04/14) Acquired hypothyroidism Atrial fibrillation (~2012) Cataract (~2013) Chickenpox (~1948) Foot fracture, right (~2014) Fractures GERD (gastroesophageal reflux disease) (~1978) Hypercalcemia (07/04/14) Hyperlipidemia (07/04/14) Hyperparathyroidism, primary (~2013) Measles Mumps (~1970) Osteoarthritis (~1974) Osteoporosis (~2008) Paraplegia Parathyroid adenoma (05/07/17) Post-polio syndrome Primary osteoarthritis, left shoulder Scoliosis (~1952) Sleep apnea (~2000) Supraspinatus tendon tear Urinary incontinence (~2008) Vision abnormalities Surgical History Anesthesia History of lumbar sympathectomy History of tonsillectomy (~1951) Parathyroid adenoma (~2016) Status post hammer toe correction (~1981) Family & Social History Family History Mother Osteoporosis Father Heart disease Tobacco & Substance use: Smoking Status Former smoker Meds Home Medications and Allergies Home Medications Medication Instructions Recorded Confirmed Type metoprolol tartrate 25 mg tablet 25 mg PO BID 04/20/18 10/04/20 History Disabled Parking Permit #1 ea 04/27/18 10/04/20 Rx levothyroxine 112 mcg tablet 112 mcg PO DAILY #90 tab 11/20/20 11/20/20 Rx cholecalciferol (vitamin D3) 1,250 See Rx Instructions .ROUTE 12/23/20 Rx mcg (50,000 unit) capsule .COMPLEX #12 capsule Allergies Allergy/AdvReac Type Severity Reaction Status Date / Time Penicillins [PENICILLINS] Allergy Severe anaphylaxis, Verified 10/04/20 08:21 itching alendronate sodium AdvReac Intermediate Nausea Verified 10/04/20 08:21 Review of Systems Review of Systems ROS: Yes All systems reviewed with the patient and are negative except as otherwise documented Exam Vital Signs (past 8 hours): - 01/22/21 22:19 01/22/21 22:21 01/23/21 00:38 Temperature 98.0 F Pulse Rate 70 70 66 Respiratory Rate 18 Blood Pressure 158/70 H 163/99 H Pulse Oximetry 97 98 99 01/23/21 01:00 01/23/21 01:41 01/23/21 02:00 Temperature Pulse Rate 65 68 65 Respiratory Rate Blood Pressure 164/72 H Pulse Oximetry 98 94 98 01/23/21 02:30 01/23/21 02:33 01/23/21 03:00 Temperature Pulse Rate 67 67 67 Respiratory Rate 18 Blood Pressure 164/72 H Pulse Oximetry 97 95 96 01/23/21 03:19 01/23/21 03:30 01/23/21 04:00 Temperature Pulse Rate 67 67 68 Respiratory Rate Blood Pressure 178/71 H 162/72 H 162/70 H Pulse Oximetry 99 96 97 01/23/21 04:40 Temperature 97.2 F L Pulse Rate 67 Respiratory Rate 18 Blood Pressure 127/61 Pulse Oximetry 100 Oxygen Delivery Method Room Air Oxygen Flow Rate 0 Objective Labs Labs: Laboratory Results - last 24 hr 01/23/21 03:15 SARS-CoV-2 (PCR) Negative Assessment & Plan Assessment & Plan narrative: The patient is a 80-year-old female with past medical history significant for atrial fibrillation, hypothyroidism, hyperlipidemia, GERD, post-polio syndrome paraplegia in osteoporosis who presents to the ER with right knee pain and is found to have a distal femur fracture that upon review by Dr. Stratton orthopedics is non operative. The patient uses a power wheelchair with a backup of a manual wheelchair which is not have leg supports that elevate. The patient is unable to use manual wheelchair for extended. It is related to right rotator cuff as well as degenerative disease of the hands. 1. Pathologic distal femur fracture secondary to osteoporosis with hemarthrosis, acute, present on admission, active -the patient has a known history of osteoporosis and sustained a fracture when moving from her wheelchair to yoga mat on the floor. -plain film x-ray finds distal femur fracture of lateral condyle, CT imaging reveals comminuted acute fracture of the distal right femur with associated suprapatellar hemarthrosis. -the patient is unable to move the extremity secondary to history of polio but retains full sensation. -ordered Tylenol 975 mg every 8 hours scheduled and oxycodone 5-10 mg every 4 hours as needed with pain. -requested Dr. Stratton orthopedics to consult, we appreciate his evaluation recommendations. -requested PT and OT to consult, evaluate and treat. 2. Osteoporosis, chronic, active -patient has known hyperparathyroidism and has had thyroid surgery to remove nodules as well as thyroid irradiation. -the patient is taking vitamin-D supplementation episodically. Will obtain a vitamin D25 [place] level. -recommended vitamin D3 2000 international units daily. -the patient has previously taken bowel phosphates with GI complications and there discontinued. 3. Paroxysmal atrial fibrillation, in sinus rhythm, chronic, stable. -12 lead EKG reveals sinus rhythm rate of 77 with incomplete right bundle-branch block without ST or T-wave changes. -patient does not recall her last episode of atrial fibrillation is not anticoagulated. -will continue metoprolol 25 mg twice daily. 3. Post-polio syndrome, chronic, stable -patient is a paraplegic and unable to move her legs at all however retains full sensation. 4. Acquired hypothyroidism, chronic, stable. Will continue thyroid supplementation with levothyroxine 112 mcg daily. VTE prophylaxis: SCDs IV fluid: Saline lock Diet: Heart healthy Code status: Full code, the patient designates her sister to be surrogate decision maker. The patient is admitted to the hospital due to distal femur fracture into the knee joint requiring immobilization and pain management in a patient who is wheelchair-bound paraplegic and lives alone. She is unable to return safely to her present living situation safely. She is admitted observation status with expected length of stay to be less than 2 midnights. COVID-19 COVID-19 status: Negative Result date/Date tested (Pos, Neg/Pending): 01/23/21 Scores GCS Sony coma scale eye opening: Spontaneous [place] coma scale verbal response: Orientated Sony coma scale motor response: Obey commands Sony coma scale total score: 15 Quality MIPS - Admit I confirm the patient?s Advance Care Plan is present, Code status is documented, Surrogate decision maker is in patient?s record [If Yes, STOP here]: Yes
[2021-01-23 05:55] LABS: Add Manual Diff / Slide Review NO; Basophils Absolute Auto 100 /uL (0-100); Basophils Percent Auto 0.7 % (0-2); Eosinophils Absolute Auto 100 /uL (0-450); Eosinophils Percent Auto 0.8 % (2-4); Hematocrit 39.6 % (36-46); Hemoglobin 13.4 g/dL (12.0-16.0); Lymphocytes Absolute Auto 2100 /uL (1100-4500); Lymphocytes Percent Auto 18.4 % (25-40); Mean Corpuscular HGB Conc 33.9 % (30-36); Mean Corpuscular Volume 91.4 fL (80-100); Monocytes Absolute Auto 1100 /uL (0-900); Monocytes Percent Auto 9.2 % (3-14); Neutrophils Absolute Auto 8200 /uL (1500-7000); Neutrophils Percent Auto 70.9 % (50-75); Platelet Count 198 X10^3/uL (150-400); Red Blood Cell Count 4.34 X10^6/uL (4.0-5.2); Red Cell Distribution Width 13.2 % (11.6-14.8); White Blood Cell Count 11.6 X10^3/uL (4.5-11.0)
[2021-01-23 06:02] LABS: Alanine Aminotransferase 47 IU/L (<35); Albumin 3.8 g/dL (3.5-5.0); Albumin Globulin Ratio 1.5 (1.0-2.8); Alkaline Phosphatase 81 U/L (38-126); Aspartate Aminotransferase 47 IU/L (14-36); BUN Creatinine Ratio 23.1 (6-22); Bilirubin Total 0.3 mg/dL (0.2-1.3); Blood Urea Nitrogen 15 mg/dL (7-17); Calcium 9.8 mg/dL (8.4-10.2); Carbon Dioxide 25 mmol/L (22-32); Chloride 106 mmol/L (98-107); Estimated Glomerular Filt Rate > 60.0 mL/min (>60); Globulin 2.6 g/dL (1.7-4.1); Glucose 136 mg/dL (80-110); HEMOLYSIS < 15 (0-50); Potassium 3.9 mmol/L (3.4-5.1); Sodium 138 mmol/L (137-145); Total Protein 6.4 g/dL (6.3-8.2)
[2021-01-23] MEDS: LEVOTHYROXINE 112 MCG TABLET PO (06:17)
[2021-01-23 06:19] LABS: Vitamin D 25 Hydroxy (D3) 57.4 ng/mL (30.0-100.0)
[2021-01-23] MEDS: OXYCODONE IR 5 MG TABLET PO ×2 (07:57→15:55)
[2021-01-23] MEDS: DOCUSATE 100 MG CAPSULE PO ×2 (09:25→21:09)
[2021-01-23] MEDS: METOPROLOL IR 25 MG TABLET PO ×2 (09:25→21:09)
--- NOTE | 2021-01-23 13:41 | CM.IDA ---
Addendum entered by ZACHERY Lord 01/23/21 16:14: Patient remains observation, EHR agrees w/observation status. Dtr Shakira contacted and updated, dtr continues to feel concerned re: obs status and needing to pay privately for SNF, supported dtr and explained patient has a bed at [facility] for admission tomorrow. Discussed observation vs inpatient status again and explained private payment at a SNF will be more financially prudent than paying for an ongoing observation stay at . Dtr states understanding and plans to discuss out of pocket expense for SNF w/February (and/or financial dept.) at [facility] this afternoon/evening. JW Original Note: Initial DCP Assessment Note Patient is a 80 yo female, resident of [place]. Patient presents w/right knee pain, patient fell from her manual wheelchair trying to get down to her temporary bedding on the floor, found to have right femur fracture requiring a brace, non operable. PMH includes post-polio syndrome paraplegia, osteoporosis, atrial fibrillation, hypothyroidism, hyperlipidemia, GERD PCP: Michelle Ghotra Payer: [facility] Met w/patient this morning, introduced role. Patient explains she was very close to moving in with her dtr Shakira Katey P# [phone] [address] son in law Dr Akash Young in [facility] when this happened. Patient requests this SPIRITUAL MINISTER review plan w/dtr/JAZ Rosenberg. Placed call to dtgrecia Rosenberg; she explains patient scheduled to move over to [facility] in 7 days, dtr/son in law have had a new [facility] suite built and dtr scheduled to come out this Wednesday to help with the move and drive mom over the pass. Patient is paraplegic and has been living indp. her entire adult life, however, dtr has been concerned recently about her mom living alone. Shakira sounds overwhelmed, states patient will now have to DC to a SNF, likely [facility]. Dtr hopeful patient will be made an inpatient in order to access her [facility] SNF benefit. This SPIRITUAL MINISTER reviewed in detail the process of utilization review, explaining patient is currently under observation status based on the type of injury she sustained. Case sent today to EHR for consult request re status- inpatient vs observation Marga Rosenberg still plans to be here Wednesday, states patient's lease is up so patient will need to DC to SNF and come home w/her when medically and functionally cleared from SNF. dtr able to pay privately, gave dtr an approx. quote for private payment at [email or web address] and deposit requirement. Placed call to February at [facility], gave referral. Awaiting f/u call from February and determination from EHR to assist. DC expected tomorrow if observation, likely SNF via private payment ZACHERY Lord Discharge Planning/Care Management CM Discharge Assessment Start: 01/23/21 13:38 Freq: Status: Active Protocol: Document 01/23/21 13:38 SUSHMA (Rec: 01/23/21 13:40 SUSHMA [id number]) Discharge Planning Assessment Assigned Collar Tailor ZACHERY Barajas Advance Directives? Yes Advance Directives on File No History Provided By Patient,Family Member,Medical Record Prior Living Arrangements Apartment/Condo Household Members none Independent with ADL's Yes Is patient alert and oriented? Yes: Forgetful Needs Assistance With Meal Prep,Home Chores / Shopping Patient/Family Preference Care Home Facility Barriers to Discharge Yes Comment See note Discharge Plan Care Home Facility Transportation Arrangement W/c Referrals Initiated Care Home Additional [facility]
[2021-01-23] MEDS: OXYCODONE IR 10 MG TABLET PO ×2 (16:42→21:59)
--- NOTE | 2021-01-23 17:13 | PT.IIE ---
Surgical History (Last Reviewed 01/23/21 @ 17:37 by Juan David Zuleta PA-C) Anesthesia History of lumbar sympathectomy History of tonsillectomy (~1951) Parathyroid adenoma (~2016) Status post hammer toe correction (~1981) Medical History (Last Reviewed 01/23/21 @ 17:37 by Jua nDavid Zuleta PA-C) Abnormal liver function tests (07/04/14) Acquired hypothyroidism Atrial fibrillation (~2012) Cataract (~2013) Chickenpox (~1948) Foot fracture, right (~2014) Fractures GERD (gastroesophageal reflux disease) (~1978) Hypercalcemia (07/04/14) Hyperlipidemia (07/04/14) Hyperparathyroidism, primary (~2013) Measles Mumps (~1970) Osteoarthritis (~1974) Osteoporosis (~2008) Paraplegia Parathyroid adenoma (05/07/17) Post-polio syndrome Primary osteoarthritis, left shoulder Scoliosis (~1952) Sleep apnea (~2000) Supraspinatus tendon tear Urinary incontinence (~2008) Vision abnormalities Physical Therapy Inpatient Evaluation/Re-Eval M1 PT/OT-IP Prior Functional Status Start: 01/23/21 11:09 Freq: NEEDED Status: Active Protocol: Document 01/23/21 17:13 AW (Rec: 01/23/21 13:29 AW [id number]) Medical Review Prior Functional Status Medical History Reviewed Yes Communication WNL. Pt is an effective verbal communicator. Mobility and Gait Pt has post-polio syndrome and mobilizes primarily with power w/c. She uses a manual w /c while her power chair is charging. She is able to stand pivot transfer without AD but historically bears weight primarily on her left leg due to RLE weakness. Activities of Daily Living and IADL's Pt lives in an accessible apartment. She is modified independent with dressing and showering tasks, independent with toileting. She drives a ramped w/c van, manages her own medications and finances. Social History Household Members none Living Arrangements Apartment/Condo Number of Floors (Floors) One Floor Number of Stairs To Enter/Railing? Ramped entry to fully accessible apartment. Home Environment Standard Height Toilet,Walk in Shower,Ramp Home Equipment Manual Wheelchair,Power Wheelchair/Scooter,Shower Seat without Backrest,Long Handled Shoe Horn,Senior [employer] Developer,Grab Bars Near Toilet,Grab Bars In Shower Additional Social History Comment Pt lives alone in [place]. Her daughter, Will, lives with her spouse [facility]. Pt has terminated her lease as of 01/30/21 with plans to move in to a converted garage at her daughter's home. Daughter is planning to arrive on Wednesday. M2 PT-IP Current Condition Start: 01/23/21 11:09 Freq: NEEDED Status: Active Protocol: Document 01/23/21 17:13 AW (Rec: 01/23/21 16:43 AW [id number]) Physical Therapy Current Condition Current Condition Evaluation Date 01/23/21 Treatment Diagnosis R distal femur fracture; post- polio syndrome; difficulty in walking Onset Date 01/22/21 Precautions Brace Ortho recommends pillow splint vs hinged brace locked in position of comfort. Weight Bearing Status Weight Bearing Status Non-Weight Bearing Allowed Weight Bearing Amount (enter % Dr. Stratton relayed verbal order or #) (%) for NWB RLE which was entered by PT. M3 PT-IP Subjective Start: 01/23/21 11:09 Freq: NEEDED Status: Active Protocol: Document 01/23/21 17:13 AW (Rec: 01/23/21 16:43 AW [id number]) Subjective Physical Therapy Visit Type Type Initial Evaluation Visit Start Time 12:40 Visit Stop Time 17:13 Total Visit Minutes 58 Notes Split visits [id number], 1537- [id number], and [id number] for clarification on splinting, weightbearing status, and to allow for pain medication. Co- eval with OT due to complexity . Number of MANAGER PEDIATRIC Visits 0 Physical Therapy Visit Comments Patient Comments Pt is willing to participate with rehab Patient Goals Pt understands she may need SNF rehab before going home Therapy Pain Assessment Pain When Pain Assessed During Mobility Pain Present Pain Present Pain Reported Location Right Leg Intensity 10 Scale Used Numeric (0 - 10) Pain Management Techniques Distraction,Modification of Treatment,Timing of Activity with Medications M4 PT-IP Mobility and Gait Start: 01/23/21 11:09 Freq: NEEDED Status: Active Protocol: Document 01/23/21 17:13 AW (Rec: 01/23/21 17:45 AW [id number]) PT-Bed Mobility Assessment Supine to Sit Supine to Sit Moderate Assistance,2 Person Assistance Sit to Supine Sit to Supine Moderate Assistance,2 Person Assistance Scooting Scooting to Edge of Bed Moderate Assistance PT-Transfer Assessment Equipment Transfer Assistive Device Gait Belt,Sliding Board Orthotic/Prosthetic Devices or Brace: Yes Transfers Transfer Destination Bed,Chair Transfer Technique Lateral Scoot Transfer Ability Level of Assist Maximum Assistance,2 Person Assistance,Use of Upper Extremities Comments Mobility Comments Pt was reclined in the bed as PT and OT arrived. Placement of pillow splint required 2 person assist for stabilization of the knee. Pillow splint was reinforced with ELIDA bandage at 75% tension. Pt then moved toward the left EOB. OT tilted the bed to the left to assist with transfer. PT held the RLE in extension as pt scooted to her left via slide board to the chair with good UE strength. She sat in the chair and reclined but PT and OT agreed that she should not be transferred back via priscilla. The chair was turned so pt could again transfer via slide board to her left side back to the bed. She did best when the shank was held in rotation consistent with hip rotation. That is, if the hip was internally rotated, pt was most comfortable with the tibia in slight IR and vice versa. Pt positioned herself in bed and was left with OT. Gait Assessment Comments Gait Comments NWB RLE. Pt not ambulatory at baseline. PT-Balance Assessment Sitting Balance and Reactions Static Sitting Balance Ability Fair Dynamic Sitting Balance Ability Fair M5 PT-IP Objective Assessments Start: 01/23/21 11:09 Freq: NEEDED Status: Active Protocol: Document 01/23/21 17:13 AW (Rec: 01/23/21 16:45 AW [id number]) Orientation Orientation/Cognition Level of Alertness Alert Orientation Name,Day of Week,Place, Situation Language Function Ability No Deficits Noted Safety Awareness Understands Safety Issues Memory Description No Deficits Noted Gross Range of Motion Lower Extremity ROM Assessment Bilaterally Impaired Impairments PROM bilateral ankles to neutral only. Pt unable to actively dorsiflex. She uses a hinged AFO on her left LE for driving Strength Lower Extremity Strength Assessment Bilaterally Impaired Hip L 3+/5 Knee L 4/5 Ankle L 3-/5 Comments Strength Comments RLE not tested Sensation Assessment Sensation Gross Sensation WNL M6 PT-IP Treatment Start: 01/23/21 11:09 Freq: NEEDED Status: Active Protocol: Document 01/23/21 17:13 AW (Rec: 01/23/21 17:45 AW [id number]) Physical Therapy Treatment Education Education Provided Precautions,Weight Bearing Status,Safety Other Treatments Other Treatment Performed Provided pillow reinforced with ELIDA bandage for support of right knee. M7 PT-IP Assessment and Plan Start: 01/23/21 11:09 Freq: NEEDED Status: Active Protocol: Document 01/23/21 17:13 AW (Rec: 01/23/21 17:45 AW [id number]) PT Summary Assessment and Plan Potential Rehabilitation Potential Good Status of Condition at Evaluation Evolving Summary Impairments Pain,ROM,Strength,Balance,Bed Mobility,Transfers,Gait Assessment Summary Laurence is a 80 yo woman with post-polio syndrome who is non -ambulatory at baseline. She is able to transfer to and from her power or manual wheelchair via stand pivot primarily on her left leg. She is admitted following a fall resulting in right distal femur fracture which orthopedics has deemed non- operable secondary to severe osteoporosis. On evaluation, pt was provided with a pillow splint to support the RLE during transfers. Pt reported feeling of good support with splint. Capillary refill and pedal pulses were normal 30 minutes following splint placement. Pt was able to transfer NWB RLE with max assist of two people using a slide board. Pt lives alone and has plans to move to [facility] in early January. She is unsafe to discharge home at this time and will require SNF rehab prior to her move. Goals Bed Mobility Goal Contact Guard Assistance Transfer Goal Minimal Assistance,Slide Board Days to Meet Goals 10 Frequency of Treatment Frequency Of Treatment Twice a Day Treatment Plan Physical Therapy Treatment Plan Bed Mobility Training,Transfer Training,Gait Training, Therapeutic Exercise,Balance Retraining,Discharge Planning, Hot or Cold Pack,Neuromuscular Re-ed Other Recommendations and Next Treatment Consider changing to blanket Focus splint or locking hinged brace . Coordinate with RN for pain medication prior to tx. Slide board transfers. Precautions Other Precautions NWB RLE; osteoporosis; falls Recommendations To Nursing Amount of Assist Needed PT/OT Assist Only Discharge Recommendations PT Discharge Recommendations SNF Rehab Transportation Needs at Discharge Wheelchair/Cabulance
--- NOTE | 2021-01-23 17:15 | PC.NURSE ---
Addendum entered by Agnieszka Christina R.N. 01/23/21 22:46: Administered 10 mg oxycodone and requested pt alert staff if this is ineffective. Provided pt with ice pack to right distal femur. SCD in place to LLE. Addendum entered by Agnieszka Christina R.N. 01/23/21 21:56: Phone call to distance pharmacist @ [facility] to please verify pain meds so these can be given to pt. Addendum entered by Agnieszka Christina R.N. 01/23/21 21:18: Pt reports was able to sleep and now awake and c/o pain nearly 10/10 to right lower extremity. Neurovascular status unchanged from beginning of shift and jenelle/pillow splint remain intact with PA-C having checked on this immobilizing device this shift. Discussion with MABEL Padilla re pt's pain management and frequency of oxycodone. Addendum entered by Agnieszka Christina R.N. 01/23/21 19:01: Refuses SCD to RLE. Placed on left LE as ordered. Addendum entered by Agnieszka Christina R.N. 01/23/21 17:43: Ortho PA in to see patient. Addendum entered by Agnieszka Christina R.N. 01/23/21 17:20: P.T./O.T. exit pt's room after transferring pt to chair utilizing slider board. Inform nursing P.T./O.T. only for transfers. Pt was returned to bed by same. Original Note: P.T. staff x 2 placing pillow splint on pt's RLE while pt in bed. Pt rates this pain 10/10. Administered 5 mg oxycodone and then repeated this dose as per emar to equal ordered 10 mg oxycodone prn. Pt has h/o polio and baseline right foot drop. Palpable pedal pulses BL with nonpitting edema to right dorsum of foot. Pt denies nausea. Clear breath sounds throughout all lung [place]. Able to position self in bed for bedpan use. P.T. x 2 in with pt to mobilize pt out of bed into chair.
--- NOTE | 2021-01-23 17:19 | OT.IP.EVAL ---
Past Medical History (Last Reviewed 01/23/21 @ 17:37 by Juan David Zuleta PA-C) Abnormal liver function tests (07/04/14) Acquired hypothyroidism Atrial fibrillation (~2012) Cataract (~2013) Chickenpox (~1948) Foot fracture, right (~2014) Fractures GERD (gastroesophageal reflux disease) (~1978) Hypercalcemia (07/04/14) Hyperlipidemia (07/04/14) Hyperparathyroidism, primary (~2013) Measles Mumps (~1970) Osteoarthritis (~1974) Osteoporosis (~2008) Paraplegia Parathyroid adenoma (05/07/17) Post-polio syndrome Primary osteoarthritis, left shoulder Scoliosis (~1952) Sleep apnea (~2000) Supraspinatus tendon tear Urinary incontinence (~2008) Vision abnormalities Surgical History (Last Reviewed 01/23/21 @ 17:37 by Juan David Zuleta PA-C) Anesthesia History of lumbar sympathectomy History of tonsillectomy (~1951) Parathyroid adenoma (~2016) Status post hammer toe correction (~1981) Occupational Therapy Inpatient Evaluation/Re-Eval M1 PT/OT-IP Prior Functional Status Start: 01/23/21 17:53 Freq: NEEDED Status: Active Protocol: Document 01/23/21 17:54 [facility] (Rec: 01/23/21 18:18 [facility] [id number]) Medical Review Prior Functional Status Medical History Reviewed Yes Communication WNL. Pt is an effective verbal communicator. Mobility and Gait Pt has post-polio syndrome and mobilizes primarily with power w/c. She uses a manual w /c while her power chair is charging. She is able to stand pivot transfer without AD but historically bears weight primarily on her left leg due to RLE weakness. Activities of Daily Living and IADL's Pt lives in an accessible apartment. She is modified independent with dressing and showering tasks, independent with toileting. She drives a ramped w/c van, manages her own medications and finances. Social History Household Members none Living Arrangements Apartment/Condo Number of Floors (Floors) One Floor Number of Stairs To Enter/Railing? Ramped entry to fully accessible apartment. Home Environment Standard Height Toilet,Walk in Shower,Ramp Home Equipment Manual Wheelchair,Power Wheelchair/Scooter,Shower Seat without Backrest,Long Handled Shoe Horn,Manager Residential,Grab Bars Near Toilet,Grab Bars In Shower Additional Social History Comment Pt lives alone in [place]. Her daughter, Will, lives with her spouse [facility]. Pt has terminated her lease as of 01/30/21 with plans to move in to a converted garage at her daughter's home. Daughter is planning to arrive on Wednesday. M2 OT-IP Current Condition Start: 01/23/21 17:53 Freq: Status: Active Protocol: Document 01/23/21 17:54 [facility] (Rec: 01/23/21 18:18 [facility] [id number]) Occupational Therapy Current Condition Current Condition Evaluation Date 01/23/21 Treatment Diagnosis R distal femur fx involving lateral condyle/communicated acute fx of distal Diagnosis Onset Date 01/23/21 Weight Bearing Status Weight Bearing Status Non-Weight Bearing Allowed Weight Bearing Amount (enter % RLE NWB or #) (%) M3 OT- IP Subjective and Pain Start: 01/23/21 17:53 Freq: Status: Active Protocol: Document 01/23/21 17:54 [facility] (Rec: 01/23/21 18:18 [facility] [id number]) OT- Subjective Occupational Therapy Visit Type Type Initial Evaluation Visit Start Time 15:40 Visit Stop Time 17:19 Total Visit Minutes 40 Occupational Therapy Visit Comments Patient Comments Pt wanting to have pain medications first prior to trying to move and also having to clarify with Dr. Ware and Dr. Jay of pt's needs. Per Dr. Misty Ware wanting pt to be NWB abd have pillow/blanket splint or use of hinge brace to the degree of her comfort. Able to put in verbal order for Dr. Jay for pt's needs. Patient/Caregiver Goals To get better. OT Pain Assessment Pain When Pain Assessed During Mobility Pain Present Pain Present Pain Reported Location Right Leg Intensity 10 Scale Used Numeric (0 - 10) M4 OT- IP ADL's Start: 01/23/21 17:53 Freq: Status: Active Protocol: Document 01/23/21 17:54 [facility] (Rec: 01/23/21 18:18 [facility] [id number]) OT [id number] Comments OT Self-Feeding Comments NOt at meal time. OT ADL-Grooming Comments OT Grooming Comments Pt states will do grooming/ oral hygiene after her dinner. OT ADL-Dressing General Eval Lower Body Dressing Ability Total Assistance Areas Needing Assistance Socks Comments OT Dressing Comments Total assist to help get pillow splint on the pt with jenelle wrap completed with PT assist to wrap her RLE. Pt also benefit from rolled towel under her right ankle for support and alignment. OT ADL-Toileting Comments OT Toileting Comments Bed constantino more appropriate at this time. OT ADL-Bathing Comments OT Bathing Comments Sponge bath more appropriate at this time. M5 OT- IP IADL's Start: 01/23/21 17:53 Freq: Status: Active Protocol: Document 01/23/21 17:54 [facility] (Rec: 01/23/21 18:18 [facility] [id number]) OT-Instrumental Activities of Daily Living Home Safety Awareness Awareness of Need for Assistance at Home Good Awareness Ability to Problem Solve Emergency Able to Problem Solve Situations Money Management Money Management No Deficits Identified Meal Preparation Meal Preparation Comments At this time pt will need assist for most IADl needs. Tarp Repairer Tarp Repairer Comments At this time pt will need assist for most IADl needs. M6 OT- IP Functional Cognition Start: 01/23/21 17:53 Freq: Status: Active Protocol: Document 01/23/21 17:54 [facility] (Rec: 01/23/21 18:18 [facility] [id number]) Cognitive Factors Limiting Selfcare Function Cognitive Ability Level of Alertness Alert Patient Orientation Name,Age,Birthday,Month,Date, Year,Day of Week,Place, Situation Attention Span Ability Capable of Focused Attention, Capable of Sustained Attention Ability to Follow Commands Able to Follow Multi-Step Commands Memory Description No Deficits Noted Safety Awareness No Deficits Noted Problem Solving Ability No deficits Noted Executive Function Ability No Deficits Noted Cognitive Comments Cognitive Assessment Comments Pt intact for all cognitive needs with no deficits. Emphasize to pt to be sure to ask for pain medications when needed and to have nursing write in the board when her pain medication in due. OT- Vision and Hearing OT- Hearing Assessment OT- Hearing Assessment WFL OT- Vision Assessment Vision History Cataracts Visual Acuity Glasses For Reading Visual Attentiveness WFL M7 OT- IP Mobility and Balance Start: 01/23/21 17:53 Freq: Status: Active Protocol: Document 01/23/21 17:54 [facility] (Rec: 01/23/21 18:18 [facility] [id number]) OT- Bed Mobility Assessment Supine to Sit Supine to Sit Assist Moderate Assistance,2 Person Assistance Sit to Supine Sit to Supine Assist Moderate Assistance,2 Person Assistance OT-Transfer Assessment Transfers Transfer Ability Maximum Assistance,2 Person Assistance Technique Transfer Destination Bed,Chair Transfer Technique Lateral Scoot Devices Transfer Assistive Devices Gait Belt,Sliding Board Comments Mobility Comments Pt able to pull herself up into long sitting with use of hospital bed railing. Transfer only by OT/PT at this time. Pt initially tired to use of leg lift to help hold and control her RLE and unable and needing therapist to help unweight her RLE and assist to move her RLE alignment with right her hip. Pt has no control at her hips and her right hip tend to want to externally fall outward. MAX A X2 with sliding board, assist for placement, RLE control and balance to and from the bed to recliner. Hospital bed was tilted for increase ease to get to and from with the sliding board. Pt having a difficult time pushing as Iv located in her hand. OT- Balance Assessment Sitting Balance and Reactions Static Sitting Balance Ability Good M8 OT- IP Objective Assessments Start: 01/23/21 17:53 Freq: Status: Active Protocol: Document 01/23/21 17:54 [facility] (Rec: 01/23/21 18:18 [facility] [id number]) OT Gross Range of Motion Upper Extremity Range of Motion Assessment Within Functional Limits OT Strength Upper Extremity Strength Assessment Within Functional Limits M9 OT- IP Assessment and Plan Start: 01/23/21 17:53 Freq: Status: Active Protocol: Document 01/23/21 17:54 [facility] (Rec: 01/23/21 18:18 [facility] [id number]) OT Summary Assessment and Plan Potential Rehabilitation Potential Good Analytic Complexity at Evaluation High Summary OT Impairments Pain,Strength,Balance, Functional Mobility,Dressing, Toileting,Bathing,Toilet Transfers,Shower Transfers, Activity Tolerance Progress Towards Goals Progressing Toward Goals,Slow Progress due to Pain,Slow Progress due to Medical Issues Assessment Summary Pt high complexity due to pain , complex medical history and prior completely independent for all needs of ADL's,IADl, driving and able to do stand pivot transfer and also get up from the floor to her wc of her own. Pt now is NWB to RLE and having to have a pillow/ blanket splint for support or possible hinge brace as suggested by Ortho to set to most comfortable position. At this time pt not wanting to try the hinge brace and more comfortable with the pillow splint at this time. To touch base with pt tomorrow regarding possibility of doing blanket splint for better comfort and support for her right leg. Pt unable to care for herself and would benefit from skilled rehab at this time. Goals Self-Feeding Goal Independent Grooming Goal Independent Dressing Goal Minimal Assistance Toileting Goal Minimal Assistance Bathing Goal Moderate Assistance Toilet Transfer Goal Minimal Assistance Shower Transfer Goal Minimal Assistance Days to Meet Goals 20 Frequency of Treatment Frequency Of Treatment Once a Day Treatment Plan OT Treatment Plan ADL Training,Functional Mobility,Patient/Family Education,Discharge Planning Other Treatment Recommendations and Next [facility] Treatment Focus with sliding board MODA X 2. Discharge Recommendations OT Discharge Recommendations SNF Rehab Home Equipment Needs Defer to skilled rehab. Transportation Needs at Discharge Wheelchair/Cabulance,Stretcher /Ambulance
--- NOTE | 2021-01-23 17:34 | P.PN_ITS ---
Subjective Subjective Date Patient Seen: 01/23/21 Time Patient Seen: 17:34 Interval history: Patient states she is doing well and is in no pain. Patient denies fever, chills, nausea or urinary retention. Patient reports good sensation throughout the bilateral lower extremities to light touch. Patient is in good spirits and is looking forward to progressing outside of the hospital. Exam Vital Signs (past 8 hours): - 01/23/21 12:00 01/23/21 15:40 Temperature 98.1 F 97.5 F L Pulse Rate 66 63 Respiratory Rate 15 18 Blood Pressure 132/77 130/61 Pulse Oximetry 96 95 Oxygen Delivery Method Room Air Oxygen Flow Rate 0 Narrative Exam Narrative: 80-year-old female. Patient is resting comfortably in bed, is in no acute distress, is alert and oriented x3. Skin is warm and dry. Good sensation appreciated throughout the bilateral lower extremities to light touch. Patient unable to plantar flex, dorsiflex, ashli or invert the ankles bilaterally due to a previous diagnosis of polio. Right knee is thoroughly bandage with an Zander bandage and protected by a pillow. Const General: cooperative, healthy appearing and comfortable Resp Effort & Inspection: normal respiratory effort and able to speak in complete sentences Skin General: no rashes or lesions noted Objective Labs Result Diagrams: 01/23/21 05:40 01/23/21 05:40 Labs: Laboratory Results - last 24 hr 01/23/21 01/23/21 01/23/21 03:15 05:40 05:40 WBC 11.6 H RBC 4.34 Hgb 13.4 Hct 39.6 MCV 91.4 MCH 31.0 MCHC 33.9 RDW 13.2 Plt Count 198 Neut % (Auto) 70.9 Lymph % (Auto) 18.4 L [place] % (Auto) 9.2 Eos % (Auto) 0.8 L Baso % (Auto) 0.7 Neut # (Auto) 8200 H Lymph # (Auto) 2100 [place] # (Auto) 1100 H Eos # (Auto) 100 Baso # (Auto) 100 Sodium 138 Potassium 3.9 Chloride 106 Carbon Dioxide 25 BUN 15 Creatinine 0.65 Estimated GFR > 60.0 BUN/Creatinine Ratio 23.1 H Glucose 136 H Calcium 9.8 Total Bilirubin 0.3 AST 47 H ALT 47 H Alkaline Phosphatase 81 Total Protein 6.4 Albumin 3.8 Globulin 2.6 Albumin/Globulin Ratio 1.5 25-OH Vitamin D Total SARS-CoV-2 (PCR) Negative 01/23/21 05:40 WBC RBC Hgb Hct MCV MCH MCHC RDW Plt Count Neut % (Auto) Lymph % (Auto) [place] % (Auto) Eos % (Auto) Baso % (Auto) Neut # (Auto) Lymph # (Auto) [place] # (Auto) Eos # (Auto) Baso # (Auto) Sodium Potassium Chloride Carbon Dioxide BUN Creatinine Estimated GFR BUN/Creatinine Ratio Glucose Calcium Total Bilirubin AST ALT Alkaline Phosphatase Total Protein Albumin Globulin Albumin/Globulin Ratio 25-OH Vitamin D Total 57.4 SARS-CoV-2 (PCR) [facility] Medical History Abnormal liver function tests (07/04/14) Acquired hypothyroidism Atrial fibrillation (~2012) Cataract (~2013) Chickenpox (~1947) Foot fracture, right (~2014) Fractures GERD (gastroesophageal reflux disease) (~1978) Hypercalcemia (07/04/14) Hyperlipidemia (07/04/14) Hyperparathyroidism, primary (~2013) Measles Mumps (~1970) Osteoarthritis (~1974) Osteoporosis (~2008) Paraplegia Parathyroid adenoma (05/07/17) Post-polio syndrome Primary osteoarthritis, left shoulder Scoliosis (~1952) Sleep apnea (~2000) Supraspinatus tendon tear Urinary incontinence (~2008) Vision abnormalities Surgical History Anesthesia History of lumbar sympathectomy History of tonsillectomy (~1951) Parathyroid adenoma (~2016) Status post hammer toe correction (~1981) Family History Mother Osteoporosis Father Heart disease Social History household members: none Smoking Status: Former smoker alcohol intake: current Assessment & Plan Assessment & Plan narrative: Patient is doing well and is awaiting her knee immobilizer. Patient to continue to be monitored for observation in the hospit al. Quality VTE Deep Vein Thrombosis/Pulmonary Embolism Present on Admission: Yes
[2021-01-23] MEDS: SODIUM CHLORIDE 0.9% FLUSH 10 ML IV (21:09)
[2021-01-24] MEDS: ACETAMINOPHEN 325 MG TABLET 975 MG PO (04:16)
[2021-01-24 04:37] VITALS: BP 139/71; PULSE 57; RESP 18; TEMP 36.8; O2SAT 97
[2021-01-24] MEDS: LEVOTHYROXINE 112 MCG TABLET PO (05:58)
[2021-01-24 07:40] VITALS: BP 140/70; PULSE 61; RESP 15; TEMP 36.6; O2SAT 95
[2021-01-24] MEDS: OXYCODONE IR 10 MG TABLET PO (08:25)
[2021-01-24] MEDS: DOCUSATE 100 MG CAPSULE PO (08:25)
[2021-01-24] MEDS: METOPROLOL IR 25 MG TABLET PO (08:25)
[2021-01-24] MEDS: SODIUM CHLORIDE 0.9% FLUSH 10 ML IV (08:26)
--- NOTE | 2021-01-24 09:02 | DIET.PN ---
Dietary Progress Note Assessment: 80y F admitted for nondisplaced distal femur fracture after falling out of her wheelchair. Pt is paraplegic c retained bilateral leg sensation intact secondary to post-polio syndrome, pt has hyperparathyroidism. Pt referred to nutrition for education on osteoporosis. Pt followed by polio clinic when she was 22y. Because she had high risk for developing osteoporosis secondary to being non-weight bearing, they encouraged high intake calcium containing foods, Vit D, and Vit K. 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 Pt currently putting handful of spinach in almost all meals. Pt eats very little dairy, mostly yogurt. Pt has issues c R rotator cuff and some degenerative disease in both hands. Pt states she has many adaptive gadgets to assist her in meal prepping. Pt moving near her daughter in [facility]. Her fall was because of having her bed moved out of the home so she was attempting to get out of wheelchair to sleep on yoga mat. HT: 162.5cm WT: 80.9kg BMI: 30.6 Labs: Ca 9.8, Vit D 57.4 Nutrition Diagnosis: inadequate absorption of calcium r/t high intake dietary oxalates aeb pt eats high volume leafy green vegetables high in oxalates, pts dietary intake low in calcium, pt admitted c osteoporotic fracture. Interventions: 1. Discussed consuming calcium foods or supplements in 300mg increments throughout the day and them from high oxalate greens. Encouraged pt to cycle her greens rather than mostly eating spinach. Pt likes a variety of greens. Pt plans to start drinking milk when she moves to [facility] and [place]. 2. Sending yogurt almaguer banana smoothie once daily while hospitalized to support healing. EER: 1200mg calcium daily in 350mg doses separate from high oxalate food intake
--- NOTE | 2021-01-24 09:08 | PM.DS.1 ---
History of Present Illness History of Present Illness Date Patient Seen: 01/24/21 Time Patient Seen: 09:08 Chief complaint: Rt Knee Pain Narrative: As per MABEL Jacobo: Ms. Brenda Del Toro is a 80-year-old female with past medical history significant for atrial fibrillation, hypothyroidism, hyperlipidemia, GERD, post-polio syndrome paraplegia in osteoporosis who presents to the ER with right knee pain. Patient relates that she is in the process of moving in her bed was removed today. She has a thick padded yoga mat on the floor as temporary bedding. She was sliding out of her manual wheelchair to the floor with her leg slid out and she fell from seated position to the floor landing on her right knee. She denies hitting her head or loss of conscious and no neck or back pain. She sustained immediate pain with any movement. Prior to this event the patient has had no recent illnesses, fevers or chills headaches or dizziness. She denies chest pain or palpitations, shortness breath cough or wheezing. She has no epigastric or abdominal pain. She reports normal stooling pattern and is not on any specific bowel regimen. She does have incontinence at night. Upon arrival the ER the patient's temperature 98.0?, heart rate of 70, blood pressure 158/70, respirations of 18 saturating 97% air. Radiographs are taken of the right a finding of distal femur fracture involving the lateral condyle. A CT of the right knee without contrast finds comminuted acute fracture of the distal right with suprapatellar effusion consistent with hemarthrosis. Twelve lead EKG: Sinus rhythm at 77 with an incomplete right bundle branch block, no ST or T-wave changes. No labs are drawn in the ER with no recent historic labs. Dr. Stratton is contacted through the emergency department. He reviewed images intermittent the the fractures non operative recommend splinting and discharge. The patient is unable to return to home setting being paraplegic and wheelchair-bound and unable to manage a splinted extremity. The patient is admitted to the hospital service being unable to return home for further evaluation and treatment for distal femur fracture. PCP: Dr. Ghotra Cardiology: Dr. Wiseman Discharge Providers Provider Date of admission: 01/23/21 02:32 Discharge Date: 01/24/21 Primary care physician: Michelle Ghotra, Consults: 01/23/21 03:18 Consult to Orthopedic Surgery Routine Comment: Consulting Provider: Hay Stratton Reason for consultation: Distal femur fracture Has provider been notified: Yes 01/23/21 04:10 Consult to Dietitian, Adult Routine Comment: Reason For Exam: Pathologic fracture secondary to osteoporosis Consult to Occupational Therapy Evaluate & Treat Comment: Post polio syndrome, distal femur fracture Physician Instructions: Evaluate and treat Consult to Physical Therapy Evaluate & Treat Comment: Post polio syndrome, distal femur fracture Physician Instructions: Evaluate and Treat 01/23/21 16:44 Consult to Occupational Therapy Evaluate & Treat Comment: Pt to have pillow splint vs hinge brace for RLE Physician Instructions: Evaluate and treat Discharge provider: Gaudencio Villagomez DO Summary Hospital Course Discharge Diagnosis: 1. Pathologic distal femur fracture secondary to osteoporosis with hemarthrosis, acute, present on admission, active 2. Osteoporosis, chronic, active 3. Paroxysmal atrial fibrillation, in sinus rhythm, chronic, stable. 3. Post-polio syndrome, chronic, stable 4. Acquired hypothyroidism, chronic, stable. Hospital Course: The patient is a 80-year-old female with past medical history significant for atrial fibrillation, hypothyroidism, hyperlipidemia, GERD, post-polio syndrome paraplegia in osteoporosis who presented to the ER with right knee pain and was found to have a distal femur fracture that upon review by Dr. Stratton orthopedics is non operative. The patient uses a power wheelchair with a backup of a manual wheelchair which is not have leg supports that elevate. The patient is unable to use manual wheelchair for extended periods of time related to right rotator cuff as well as degenerative disease of the hands. Knee immobilizer was placed. Pain was controlled on oral medications. Given patient's chronic conditions, acute fracture limiting her ability to mobilize currently, plan is for discharge to SNF. Exam Vital Signs (past 8 hours): - 01/24/21 04:37 01/24/21 07:40 Temperature 98.3 F 97.8 F Pulse Rate 57 L 61 Respiratory Rate 18 15 Blood Pressure 139/71 140/70 Pulse Oximetry 97 95 Oxygen Delivery Method Room Air Oxygen Flow Rate 0 Const General: cooperative, comfortable, well groomed and No acute distress Nutritional Appearance: well nourished Orientation: alert and awake Eyes General: appearance normal, both eyes and all related structures Eyelids: eyelids normal Conjunctivae: conjunctivae normal Sclera: sclerae normal Resp Effort & Inspection: normal respiratory effort and able to speak in complete sentences Cardio Rate: regular rate Rhythm: regular rhythm Skin General: no rashes or lesions noted Extrem Other: No swelling bilateral lower extremities. RLE propped up on pillow and ankle support with towel. Pending immobilizer. Objective Labs Result Diagrams: 01/23/21 05:40 01/23/21 05:40 [facility] Medical History Abnormal liver function tests (07/04/14) Acquired hypothyroidism Atrial fibrillation (~2012) Cataract (~2013) Chickenpox (~1947) Foot fracture, right (~2014) Fractures GERD (gastroesophageal reflux disease) (~1978) Hypercalcemia (07/04/14) Hyperlipidemia (07/04/14) Hyperparathyroidism, primary (~2013) Measles Mumps (~1970) Osteoarthritis (~1974) Osteoporosis (~2008) Paraplegia Parathyroid adenoma (05/07/17) Post-polio syndrome Primary osteoarthritis, left shoulder Scoliosis (~1952) Sleep apnea (~2000) Supraspinatus tendon tear Urinary incontinence (~2008) Vision abnormalities Surgical History Anesthesia History of lumbar sympathectomy History of tonsillectomy (~1951) Parathyroid adenoma (~2016) Status post hammer toe correction (~1981) Family History Mother Osteoporosis Father Heart disease Social History household members: none Smoking Status: Former smoker alcohol intake: current Discharge Plan Discharge Plan Patient Disposition: SNF Transfer to: [facility] Provider Discharge Comment: The patient is a 80-year-old female with past medical history significant for atrial fibrillation, hypothyroidism, hyperlipidemia, GERD, post-polio syndrome paraplegia in osteoporosis who presented to the ER with right knee pain and was found to have a distal femur fracture that upon review by Dr. Stratton orthopedics is non operative. The patient uses a power wheelchair with a backup of a manual wheelchair which is not have leg supports that elevate. The patient is unable to use manual wheelchair for extended periods of time related to right rotator cuff as well as degenerative disease of the hands. Knee immobilizer was placed for her fracture. Given patient's chronic conditions, acute fracture limiting her ability to mobilize currently, plan is for discharge to SNF. I certify the postop hospital residential care is medically necessary on a continuing basis for any conditions for which he/ she received care during this hospitalization.: Yes The receiving facility has agreed to accept transfer and provide medical treatment.: Yes Discharge orders & Medications Prescriptions: New acetaminophen 325 mg Tablet 975 mg PO Q8H 30 Days Qty: 270 RF: 0 docusate sodium [DOK] 100 mg Capsule 100 mg PO BID 14 Days Qty: 28 RF: 0 oxycodone 10 mg Tablet 5 - 10 mg PO Q4HR PRN (Reason: Pain, Severe (7-10)) 7 Days Qty: 30 RF: 0 Continued (DME) Disabled Parking Permit Qty: 1 RF: 0 cholecalciferol (vitamin D3) 1,250 mcg (50,000 unit) capsule See Rx Instructions .ROUTE .COMPLEX Qty: 12 RF: 0 metoprolol tartrate 25 mg tablet 25 mg PO BID RF: 0 levothyroxine 112 mcg tablet 112 mcg PO DAILY Qty: 90 RF: 3 Follow up/Referrals: Michelle Ghotra DO [Primary Care Provider] - Discharge Health Status Precautions: [place] Diet/Activity/Treatments Diet: Diet as Tolerated Diet comment: As tolerated Special Rehabilitation Services Reason for rehabilitation: Recovery r/t decondition Rehab type: Physical therapy and Occupational therapy Discharge Data Primary Care Provider: Michelle Ghotra Attending Provider: Gaudencio Padilla VTE Deep Vein Thrombosis/Pulmonary Embolism Present on Admission: Yes
--- NOTE | 2021-01-24 09:39 | PM.CN ---
History of Present Illness Consult details Date Patient Seen: 01/24/21 Time Patient Seen: 09:00 Chief complaint: Rt Knee Pain Reason for consult: Right knee distal femoral fracture Requesting provider: Faith Rose Narrative: The patient is a 80-year-old woman with post-polio syndrome who has been wheelchair bound for a number of years. She does stand to pivot transfer using her left leg. She suffered an injury while trying to transfer and fractured her right distal femur. She was evaluated for this in the emergency room early in the morning yesterday. I was consulted from the emergency room and suggested a pillow splint. The patient was admitted later in the morning as there was no available caregiver at home. I was not made aware of the admission. Family has requested that I evaluate the patient while she is in the hospital. Meds Home Medications and Allergies Home Medications Medication Instructions Recorded Confirmed Type metoprolol tartrate 25 mg tablet 25 mg PO BID 04/20/18 01/23/21 History Disabled Parking Permit #1 ea 04/27/18 01/23/21 Rx levothyroxine 112 mcg tablet 112 mcg PO DAILY #90 tab 11/20/20 01/23/21 Rx cholecalciferol (vitamin D3) 1,250 See Rx Instructions .ROUTE 12/23/20 01/23/21 Rx mcg (50,000 unit) capsule .COMPLEX #12 capsule acetaminophen 975 mg PO Q8H 30 Days #270 tab 01/24/21 Rx docusate sodium [DOK] 100 mg PO BID 14 Days #28 cap 01/24/21 Rx oxycodone 5 - 10 mg PO Q4HR PRN 7 Days #30 01/24/21 Rx tab Allergies Allergy/AdvReac Type Severity Reaction Status Date / Time Penicillins [PENICILLINS] Allergy Severe anaphylaxis, Verified 10/04/20 08:21 itching alendronate sodium AdvReac Intermediate Nausea Verified 10/04/20 08:21 Review of Systems Review of Systems ROS: Yes All systems reviewed with the patient and are negative except as otherwise documented Exam Vital Signs (past 8 hours): - 01/24/21 04:37 01/24/21 07:40 Temperature 98.3 F 97.8 F Pulse Rate 57 L 61 Respiratory Rate 18 15 Blood Pressure 139/71 140/70 Pulse Oximetry 97 95 Oxygen Delivery Method Room Air Oxygen Flow Rate 0 Narrative Exam Narrative: The right leg is currently in a pillow splint as prescribed. There is minimal tenderness over the distal thigh. She has intact light touch in the right foot. She has no motor function in the right leg. She has a 1+ dorsalis pedis and posterior tibial pulse. Objective Labs Result Diagrams: 01/23/21 05:40 01/23/21 05:40 Assessment & Plan Assessment & Plan narrative: The patient has a mildly displaced distal femoral fracture in the supracondylar and intercondylar region on the right. She is nonambulatory and has severe osteopenia. Surgical fixation of this fracture would have a very high complication rate due to the poor quality of the bone and the likelihood of failure of fixation. She does not use this leg to transfer or weightbear. Typically in these situations the fracture is treated non operatively with a well-padded or ?pillow splint?. The patient is well acquainted with various braces. She already has some custom leg braces from when she was attempting to weightbear with her post-polio before things worsened. She prefers the pillow splint at this time to a locked hinged knee brace. I would recommend that she remain in the pillow splint for about 6 weeks. At that point if the fracture looks like it is beginning to heal, she could be placed in a hinged knee brace to try to gently begin to maintain knee range of motion with therapy. The total time of immobilization will likely be approximately 12 weeks. She is concerned that she will become more disabled by her leg afterwards. I have explained that unfortunately the fracture is a setback and that she may not reach her pre injury status. I do not think that a surgical procedure in her case is likely to improve chances of good function. If she were to suffer complications such as infection or loss of fixation of the hardware the outcome would likely be worse than non operative treatment. The patient can be discharged to a group home facility and follow up in my office in 2 weeks. Her family plans to eventually transfer her to [facility] where they live. They are researching group home facilities in their area. At that time care of the patient would likely be transferred to an orthopedic surgeon in [place]. I had a long discussion with the patient's daughter, Shakira Del Toro, by phone and explained this to her in detail. Time Spent With Patient Time with patient: 25 - 35 minutes
--- NOTE | 2021-01-24 12:09 | OT.IP.TRT ---
Occupational Therapy Treatment Note M2 OT-IP Current Condition Start: 01/23/21 17:53 Freq: Status: Active Protocol: Document 01/23/21 17:54 [facility] (Rec: 01/23/21 18:18 [facility] [id number]) Occupational Therapy Current Condition Current Condition Evaluation Date 01/23/21 Treatment Diagnosis R distal femur fx involving lateral condyle/communicated acute fx of distal Diagnosis Onset Date 01/23/21 Weight Bearing Status Weight Bearing Status Non-Weight Bearing Allowed Weight Bearing Amount (enter % RLE NWB or #) (%) M3 OT- IP Subjective and Pain Start: 01/23/21 17:53 Freq: Status: Active Protocol: Document 01/24/21 13:20 [facility] (Rec: 01/24/21 13:31 [facility] [id number]) OT- Subjective Occupational Therapy Visit Type Type Treatment Note Visit Start Time 09:20 Visit Stop Time 12:09 Total Visit Minutes 24 Notes Pt seen for split treatment, seen 2nd time to assist to get to the wc with PT. Occupational Therapy Visit Comments Patient Comments Pt wanting to put on a pull up brief. Spoke to Dr. Ware and as he just finished speaking to the pt that a charlie size pillow would be more appropriate for pillow splint to go from her upper thigh to ankle to provide more coverage and suppport for her . Pt states to have her family buy one and agreed that the stuffing could be taken out so able to have adequate 4 inch padding for her RLE. Patient/Caregiver Goals To be able to move better. OT Pain Assessment Pain When Pain Assessed At Rest Pain Present Pain Present Denied Pain M4 OT- IP ADL's Start: 01/23/21 17:53 Freq: Status: Active Protocol: Document 01/24/21 13:20 [facility] (Rec: 01/24/21 13:31 [facility] [id number]) OT ADL-Dressing General Eval Lower Body Dressing Ability Maximum Assistance Areas Needing Assistance Underpants/Brief Comments OT Dressing Comments Pt needing two person assist to help hold RLE and and pull up her brief as pt able to assist to bridge her hips up. OT ADL-Toileting Comments OT Toileting Comments Bed constantino more appropriate at this time. M5 OT- IP IADL's Start: 01/23/21 17:53 Freq: Status: Active Protocol: Document 01/23/21 17:54 [facility] (Rec: 01/23/21 18:18 [facility] [id number]) OT-Instrumental Activities of Daily Living Home Safety Awareness Awareness of Need for Assistance at Home Good Awareness Ability to Problem Solve Emergency Able to Problem Solve Situations Money Management Money Management No Deficits Identified Meal Preparation Meal Preparation Comments At this time pt will need assist for most IADl needs. Zone Supervisor Firearms Zone Supervisor Firearms Comments At this time pt will need assist for most IADl needs. M7 OT- IP Mobility and Balance Start: 01/23/21 17:53 Freq: Status: Active Protocol: Document 01/24/21 13:20 [facility] (Rec: 01/24/21 13:31 [facility] [id number]) OT- Bed Mobility Assessment Supine to Sit Supine to Sit Assist Minimal Assistance,2 Person Assistance OT-Transfer Assessment Transfers Transfer Ability Moderate Assistance,2 Person Assistance Technique Transfer Destination Bed,Wheelchair Transfer Technique Lateral Scoot Devices Transfer Assistive Devices Gait Belt,Sliding Board Comments Mobility Comments With increased time, placement of sliding board, assist to hold RLE and help stabilize her knee laterally , pt able to use her arms to assist along with PT to pull on towel on the sliding board to get over to the WC. M8 OT- IP Objective Assessments Start: 01/23/21 17:53 Freq: Status: Active Protocol: Document 01/23/21 17:54 [facility] (Rec: 01/23/21 18:18 [facility] [id number]) OT Gross Range of Motion Upper Extremity Range of Motion Assessment Within Functional Limits OT Strength Upper Extremity Strength Assessment Within Functional Limits M9 OT- IP Assessment and Plan Start: 01/23/21 17:53 Freq: Status: Active Protocol: Document 01/24/21 13:20 [facility] (Rec: 01/24/21 13:31 [facility] [id number]) OT Summary Assessment and Plan Potential Rehabilitation Potential Good Analytic Complexity at Evaluation High Summary Progress Towards Goals Progressing Toward Goals Assessment Summary Pt going to skilled rehab today. Dr. Ware suggested a charlie size pillow would be more supportive of her RLE at this time versus hinged brace. Pt to have her family get one for her. Discharge Recommendations OT Discharge Recommendations SNF Rehab Home Equipment Needs Defer to skilled rehab. Transportation Needs at Discharge Wheelchair/Cabulance
--- NOTE | 2021-01-24 12:13 | PT.IPTN ---
Physical Therapy Treatment Note M2 PT-IP Current Condition Start: 01/23/21 11:09 Freq: NEEDED Status: Active Protocol: Document 01/24/21 12:13 DLM (Rec: 01/24/21 12:25 DLM [id number]) Physical Therapy Current Condition Precautions Brace Ortho recommends pillow splint vs hinged brace locked in position of comfort. Weight Bearing Status Weight Bearing Status Non-Weight Bearing Allowed Weight Bearing Amount (enter % Dr. Stratton relayed verbal order or #) (%) for NWB M3 PT-IP Subjective Start: 01/23/21 11:09 Freq: NEEDED Status: Active Protocol: Document 01/24/21 12:13 DLM (Rec: 01/24/21 12:25 DLM [id number]) Subjective Physical Therapy Visit Type Type Treatment Note Visit Start Time 11:55 Visit Stop Time 12:13 Total Visit Minutes 18 Number of CREDIT PRODUCT ANALYST Visits 0 Physical Therapy Visit Comments Patient Comments Right knee hurts when she moves Patient Goals okay with going to SNF rehab today Therapy Pain Assessment Pain When Pain Assessed During Mobility Pain Present Pain Present Pain Reported Location Right Leg Intensity 10 Scale Used Numeric (0 - 10) Description Aching,Sharp,Stabbing,With Movement Pain Behaviors Facial Grimacing,Guarding, Wincing Pain Management Techniques Re-positioning M4 PT-IP Mobility and Gait Start: 01/23/21 11:09 Freq: NEEDED Status: Active Protocol: Document 01/24/21 12:13 DLM (Rec: 01/24/21 12:25 DLM [id number]) PT-Bed Mobility Assessment Supine to Sit Supine to Sit Minimal Assistance,Moderate Assistance,2 Person Assistance Scooting Scooting to Edge of Bed Minimal Assistance PT-Transfer Assessment Equipment Transfer Assistive Device Gait Belt,Sliding Board Transfers Transfer Destination Wheelchair Transfer Technique Lateral Scoot Transfer Ability Level of Assist Moderate Assistance,2 Person Assistance,Use of Upper Extremities Comments Mobility Comments Pt needs constant support and assist to move right LE during transfer. Right knee pain is very sensative to positioning. Slow pace of transfer to manage right knee pain. Pt did better scooting buttocks to edge of bed in supine then sitting up for slide transfer into wheelchair. Arm rest removed from t the wheelchair and pt is max assist for managing the slide board. She demonstrates good use of UE's during slide transfer. Gait Assessment Comments Gait Comments not ambulatory PT-Balance Assessment Sitting Balance and Reactions Static Sitting Balance Ability Fair Dynamic Sitting Balance Ability Fair M5 PT-IP Objective Assessments Start: 01/23/21 11:09 Freq: NEEDED Status: Active Protocol: Document 01/23/21 17:13 AW (Rec: 01/23/21 16:45 AW [id number]) Orientation Orientation/Cognition Level of Alertness Alert Orientation Name,Day of Week,Place, Situation Language Function Ability No Deficits Noted Safety Awareness Understands Safety Issues Memory Description No Deficits Noted Gross Range of Motion Lower Extremity ROM Assessment Bilaterally Impaired Impairments PROM bilateral ankles to neutral only. Pt unable to actively dorsiflex. She uses a hinged AFO on her left LE for driving Strength Lower Extremity Strength Assessment Bilaterally Impaired Hip L 3+/5 Knee L 4/5 Ankle L 3-/5 Comments Strength Comments RLE not tested Sensation Assessment Sensation Gross Sensation WNL M6 PT-IP Treatment Start: 01/23/21 11:09 Freq: NEEDED Status: Active Protocol: Document 01/24/21 12:13 DLM (Rec: 01/24/21 12:25 DLM [id number]) Physical Therapy Treatment Education Education Provided Precautions,Weight Bearing Status,Safety Other Treatments Other Treatment Performed pillow splint with ELIDA wrap in place on right knee to manage her pain M7 PT-IP Assessment and Plan Start: 01/23/21 11:09 Freq: NEEDED Status: Active Protocol: Document 01/24/21 12:13 DLM (Rec: 01/24/21 12:25 DLM [id number]) PT Summary Assessment and Plan Summary Impairments Pain,ROM,Strength,Balance,Bed Mobility,Transfers,Activity Tolerance Progress Towards Goals Slow Progress due to Pain Assessment Summary Pt getting ready for discharge to SNF today. Transfer training performed to wheelchair that she will use at discharge. She shows good participation in therapy. She shows improved ability to scoot laterally for the slide transfer using slide board. All mobility is done slowly with rest breaks as needed to manage her pain. She feels the pillow splint on right knee is helping but her LE is still very sensative to any positional changes. Pt up to recliner with right LE on elevated leg rest at the end of this visit. Discharge plan is to SNF rehab for further therapy. Goals Bed Mobility Goal Contact Guard Assistance Transfer Goal Minimal Assistance,Slide Board Days to Meet Goals 10 Frequency of Treatment Frequency Of Treatment Twice a Day Treatment Plan Physical Therapy Treatment Plan Bed Mobility Training,Transfer Training,Therapeutic Exercise ,Balance Retraining,Discharge Planning,Hot or Cold Pack, Neuromuscular Re-ed Recommendations To Nursing Amount of Assist Needed PT/OT Assist Only Discharge Recommendations PT Discharge Recommendations SNF Rehab Transportation Needs at Discharge Wheelchair/Cabulance
[2021-01-24 12:36] LABS: Calcium 9.5 mg/dL (8.7-10.3); Parathyroid Hormone, Intact 102 pg/mL (15-65)
--- NOTE | 2021-01-24 13:54 | PC.NURSE ---
Pt A&Ox3. VSS, afebrile on RA. Upon awakening this a.m. reports pain increased when moving jumps up to 10/10 and minimal movement 8/10. PRN oxycodone 10mg administered with good effect. Voiding by bedpan, noted some dependent edema +1 to feet chronically. +CMS, +1 edema to R knee.PT/OT able to work with patient. Patient is cleared by MD for discharge to [facility] this a.m. Report given to Olesya at [facility]. PT/OT assisted with slide board transfer to /. Designee transported patient with packet and all of her belongings at approximately 12:20 p.m. She verbalized understanding and agreement with plan of care and discharge.
--- NOTE | 2021-01-24 14:25 | CM.DPNOTE ---
DC Note DC order in place today, SNF still recommended based on patient's injury, PMH and need for ongoing therapies. Spoke / February at [facility] and dtr Shakira to coordinate plan. Shakira understands patient remains observation status. Shakira has provided payment for patient's DC to [facility] today, no updated COVID swab needed. Faxed completed and signed med list, Rx, PASRR and copy of COVID-19 vaccination card to [facility]. W/c p/u w/ removable arm rest and leg rest (patient discharging w/knee immobilizer/brace) arranged for 1200, updated RN Ashley and requested nurse to nurse report to Olesya Ibrahim# [phone] Patient and family remained agreeable to plan throughout the day Plan: DC to [facility], private payment, via w/c w/knee immobilizer on and in place JW
== END 2021-01-24 12:20 ==
LOC: ED 01-23 02:32 → AC 01-23 02:32
PROVIDERS: Admitting Provider Nurse Practitioner Adult Health; Emergency Provider Emergency Medicine; PCP Family Medicine; Referring Provider Emergency Medicine; Visit Provider Nurse Practitioner Adult Health
DX: M80.851A Other osteoporosis with current pathological fracture, right femur, initial encounter for fracture (principal); G14 Postpolio syndrome; E03.9 Hypothyroidism, unspecified; E78.5 Hyperlipidemia, unspecified; K21.9 Gastro-esophageal reflux disease without esophagitis; I48.0 Paroxysmal atrial fibrillation; Z99.3 Dependence on wheelchair; Z20.822 Contact with and (suspected) exposure to COVID-19
CPT/HCPCS: 36415; 73562; 73700; 80053; 82306; 82310; 83970; 85025; 87635; 96374; 97163; 97167; 97530; 97535; 99284; C9803; G0378; J2270

== ENCOUNTER → 2021-02-05 09:01 | Outpatient (CLI) | payer MEDICARE, OTHER, SELFPAY ==
[2021-01-23 04:39] VITALS: BMI 31.4
--- NOTE | 2021-02-05 | DI.RAD.S_ITS ---
PROCEDURE: XR KNEE RT 1TO2V INDICATIONS: DISTAL FEMORAL FRACTURE TECHNIQUE: 2 views of the knee were acquired, and according to tech note these were obtained in the wheelchair. Suboptimal quality of visualization.. COMPARISON: [facility], CR, XR KNEE RT 3V, 01/22/2021, 22:20. [facility], CR, KNEE 3V LEFT, 03/27/2015, 8:30. FINDINGS: Bones: No dislocations but there is an abnormal morphology of the distal femur, likely due to a supracondylar fracture malalignment. As was seen on prior plain film imaging 01/22/21 there is a lipohemarthrosis above the patella, and the patella itself appears displaced inferiorly suggestive of quadriceps tendon injury.. No suspicious bony lesions. Soft tissues: No joint effusion. No suspicious soft tissue calcifications. IMPRESSION: The malalignment of the patella, persistence of a lipohemarthrosis and abnormal alignment along the supracondylar portion of the distal femur suggests significantly greater injury than may be presented by plain film imaging. A quadriceps tendon rupture for example may be present. Follow-up by knee MRI or at least CT scanning of the knee likely is warranted for more accurate assessment. MR scanning would provide a much greater quality visualization of the quadriceps tendon. Dictated by: Randy Wyatt M.D. on 02/05/2021 at 11:22 Approved by: Randy Wyatt M.D. on 02/05/2021 at 11:26
== END ==
PROVIDERS: PCP Family Medicine; Referring Provider Orthopaedic Surgery; Visit Provider Orthopaedic Surgery
DX: S72.401A Unspecified fracture of lower end of right femur, initial encounter for closed fracture (principal); M22.8X1 Other disorders of patella, right knee; X58.XXXA Exposure to other specified factors, initial encounter
CPT/HCPCS: 73560